=== PATIENT | female | born 1950 | race Caucasian/White ===

== ENCOUNTER 2019-03-19 18:06 | Emergency (ER) | payer MEDICARE, SELFPAY ==
[2019-03-19 18:08] VITALS: BP 149/85; PULSE 67; RESP 18; TEMP 36.5; O2SAT 98; BMI 23.3
--- NOTE | 2019-03-19 18:22 | CT_ITS ---
HISTORY:RIGHT FLANK PAIN AND LOWER BACK PAIN WITH CONSTIPATION, HX HYSTERECTOMY, HTN, COPD TECHNIQUE:CT Abdomen And Pelvis W/O Contrast Axial CT images were obtained of the abdomen and pelvis without oral or IV contrast. Multiplanar rectructions were also obtained. A radiation dose optimization technique was used for this scan. # of images including paperwork:[id number] COMPARISON: None FINDINGS: LUNG BASES: Mild cardiomegaly. Coronary artery calcifications. Dependent atelectasis. Minimal pleural thickening is seen along the right lateral lower lobe seen on axial image 10 series 2 LIVER T BILIARY TRACT: Unremarkable. GALLBLADDER:Mildly contracted. No cholelithiasis PANCREAS: unremarkable for nonenhanced study SPLEEN: Unremarkable. ADRENAL GLANDS: Unremarkable. KIDNEYS/URETERS:Moderate right-sided hydronephrosis and hydroureter. This extends to the ureterovesicular junction. The distal ureters poorly visualized and there is atherosclerotic plaque that is seen within the common iliac and internal iliac artery The left kidney is unremarkable. There is no hydronephrosis or hydroureter. No stones within the ureter. There is calcification seen within the left external iliac artery. BLADDER: There is a calcification within the bladder seen on axial image 148 series 2 that most likely represents a recently passed stone. This measures approximately 6.2 mm STOMACH, SMALL AND LARGE BOWEL: The stomach is distended The small bowel is unremarkable No diverticulitis or mechanical obstruction APPENDIX: No appendicitis. ASCITES: Unremarkable. FREE AIR: Unremarkable. PELVIS: Multiple vascular calcifications are noted. Patient has had prior hysterectomy Soft tissue density seen within the right pelvis posterior to the anterior adjacent to the rectum. This may represent a prominent right ovary. Correlate with surgical history and consider ultrasound for further evaluation. This may represent a conglomerate of unopacified small bowel AORTA: Unremarkable. LYMPH NODES: Unremarkable. OSSEOUS STRUCTURES: No acute osseous abnormality. Dextroscoliosis of the lumbar spine. CT/Abdomen/Pelvis without Cont IMPRESSION: Moderate right-sided hydronephrosis and hydroureter. The distal ureters poorly visualized on the study and vascular cath occasions are seen within the pelvis. There is a 6.2 mm The within the bladder that is most likely secondary to a recently passed stone No left-sided hydronephrosis Hysterectomy Soft tissue density is seen in the pelvis measuring approximately 4.5 cm. This may represent a prominent right ovary. Correlate with surgical history. This may represent a conglomerate of unopacified small bowel. Consider ultrasound for further evaluation of clinically indicated Mild cardiomegaly with coronary artery cath occasions Minimal pleural thickening is seen within the lateral aspect of the right lower lobe Contracted gallbladder Individualized dose optimization techniques were used for this CT. at 1924 Reported and signed by: Latoya Sher DO Electronically Signed: Latoya Sher DO at 19:23 EDT Tel , Service support ,
[2019-03-19] MEDS: Ketorolac 30 MG/ML Syringe 15 MG IV (18:34)
[2019-03-19] MEDS: Ondansetron 4 MG/2 ML Vial IV (18:34)
[2019-03-19] MEDS: Morphine 4 MG/ML Syringe IV (18:34)
[2019-03-19] MEDS: 0.9% Normal Saline 1,000 ML 125 ML IV (18:35)
[2019-03-19 18:46] LABS: Absolute Lymphocyte Count 1.79 X10^3/uL (0.83-4.51); Absolute Neutrophil Count 4.7 X10^3/uL (2.0-7.7); Basophil# 0.02 X10^3/uL; Basophil% 0.2 % (0-1); Eosinophil# 0.08 X10^3/uL; Hematocrit 38.2 % (37-47); Hemoglobin 12.7 g/dL (12.0-15.0); Lymphocyte # 1.79 X10^3/ul (4.0); Lymphocyte % 21.6 % (19-41); Mean Corp Hgb Conc 33.2 g/dL (32-36); Mean Corpuscular Volume 96.2 fL (81-99); Mean Platelet Vol. 10.7 fl (6.2-12.0); Monocyte# 1.48 X10^3/uL; Monocyte% 17.9 % (0-10); NRBC Flagged by Analyzer 0 % (0-5); Neutrophil # 4.73 X10^3/uL (2.7-7.7); Neutrophil % 57.1 % (47-70); Platelet Count 219 K/mm3 (150-450); RBC Distribution Width CV 12.9 % (11.6-14.6); Red Blood Count 3.97 M/mm3 (4.2-5.4); White Blood Count 8.3 K/mm3 (4.4-11.0)
[2019-03-19 18:52] LABS: Anion Gap 8 (5-15); BUN 12 mg/dL (7-18); BUN/Creat Ratio 18.3 RATIO (10-20); Calcium,Total 9.2 mg/dL (8.5-10.1); Chloride 104 mmol/L (98-107); Creatinine, Serum 0.66 mg/dL (0.55-1.02); EST Glomerular Filtration Rate 95 mL/min (>60); Est Glom Filt Rate - Afr Amer 115 mL/min (>60); Estimated Creatinine Clearance 48.45 ml/min; Glucose 140 mg/dL (74-106); Potassium 3.9 mmol/L (3.5-5.1); Sodium Level 136 mmol/L (136-145)
--- NOTE | 2019-03-19 19:33 | ED.VISSUMM ---
- ER Visit Summary Date of Service: 03/19/19 Chief Complaint: [Right flank pain] History of Present Illness: The patient is a 68 F [presents to the emergency department complaint of right-sided flank pain that started around noon today. Patient rates the pain as a 10 out of 10. She is had nausea with it but no vomiting. Patient had a normal bowel movement last evening. She denies any fevers. Patient has had some dysuria and some frequency. She denies hematuria. Patient is never had discomfort like this before. Patient has had prior hysterectomy. She has a history of COPD and high cholesterol. Denies any blood in her stool or black tarry stools.] Physical Examination: [HEENT-PERRLA, EOMI. Cranial nerves II through XII grossly intact. TMs clear. Mucous membranes moist. No adenopathy. Cardiovascular-regular rate and rhythm without murmur or ectopy Lungs-clear to auscultation, chest wall stable Abdomen-normoactive bowel sounds, soft. Patient has tenderness to palpation over right lower quadrant and right CVA tenderness. There is no rebound, rigidity, or perineal signs. Extremities-intact ?4, normal range of motion, normal pulses, atraumatic] Test Results: [CBC with differential obtained showing of 8.3, hemoglobin 12.7, hematocrit 38, placed 219. Chemistries unremarkable. CT flank showed right-sided hydroureter with a 6.2 mm stone in the bladder. Radiology suspected recently passed kidney stone as the etiology.] Urinalysis showed 5-10 RBCs and 5-10 WBCs. Emergency Department Course and Treatment: Patient was given morphine and Zofran as well as Toradol in the emergency department patient's pain resolved. [] Treatment Plan: [Will be given urine strainers and a prescriptions for a few [place] for severe pain should she need them. Patient will be given referral to urology for follow-up.] Disposition: [Discharged home in stable condition area and patient advised to return if worsening pain, fever, vomiting, or conditions worsen anyway.] Impression: [Urolithiasis-passed kidney stone] This note was generated with [employer] dictation software. It may contain incorrect words, spelling, and punctuation that were not noted in review of the chart prior to signing ED Disposition - Plan for ED Patient: Referrals: Gelacio Horta MD [Primary Care Provider] -
[2019-03-19 19:35] LABS: Bacteria 0 SEEN /hpf (None Seen)
[2019-03-19 19:41] LABS: Color, Urine Yellow (Yellow); Glucose, Dipstick Normal (Normal); Ketone-Dipstick Negative (Negative); Leukocyte Esterase-Dipstick 100 /ul (Negative); Nitrite-Dipstick Negative (Negative); Occult Blood-Urine 250 /ul (Negative); Protein-Dipstick Negative (Negative); Urine Bilirubin Dipstick Negative (Negative); Urine Clarity Sl. Cloudy (Clear); Urine Urobilinogen Normal (Normal)
[2019-03-19 20:04] LABS: Mucous, Urine 1+ /hpf (<or=2+)
[2019-03-19 20:05] LABS: Red Blood Cells-Urine 5-10 SEEN /hpf (0-5); White Blood Cells 5-10 SEEN /hpf (0-5)
[2019-03-19 20:06] LABS: Squamous Epithelial Cells - UA 0-5 SEEN /hpf (5-10)
[2019-03-19 20:10] LABS: Transitional Epithelial - Ur 0-5 SEEN /hpf (0-5)
--- NOTE | 2019-03-19 20:19 | ED.DEP ---
ED Disposition - Plan for ED Patient: Instructions: KIDNEY STONE, Passed Prescriptions: Hydrocodone Bitart/Apap 5-325 [Cardwell 5MG-325MG] 1 tab PO Q4H PRN PRN 2 Days #10 tab PRN Reason: Pain Prescription Printed Referrals: Gelacio Horta MD [Primary Care Provider] - Herrera Hutchinson MD [STAFF PHYSICIAN] - 3-5 Days
[2019-03-19 20:37] VITALS: BP 123/61; PULSE 58; RESP 18; O2SAT 94
== END 2019-03-19 20:38 | disposition home or self-care (01) ==
LOC: ED 18:44
PROVIDERS: Emergency Provider Emergency Medicine; Family Provider Family Medicine; PCP Family Medicine
DX: N13.2 Hydronephrosis with renal and ureteral calculous obstruction (principal); E78.00 Pure hypercholesterolemia, unspecified; J44.9 Chronic obstructive pulmonary disease, unspecified; Z72.0 Tobacco use; Z79.899 Other long term (current) drug therapy
CPT/HCPCS: 74176; 80048; 81001; 85025; 96361; 96374; 96375; 99285; J7030; A4216; J2405

== ENCOUNTER 2020-05-03 10:44 | Emergency (ER) | payer MEDICARE, SELFPAY ==
[2020-05-03 10:44] VITALS: BP 96/63; PULSE 115; RESP 19; TEMP 36.3; O2SAT 90; BMI 26.6
--- NOTE | 2020-05-03 11:13 | EKG12_ITS ---
Test Reason : SOB Blood Pressure : / mmHG Vent. Rate : 081 BPM Atrial Rate : 081 BPM P-R Int : 142 ms QRS Dur : 074 ms QT Int : 362 ms P-R-T Axes : 024 029 052 degrees QTc Int : 420 ms Normal sinus rhythm Normal ECG Confirmed by MAITE BATES, JAKE ([id number]), greeting card editor PAULETTE AVELAR ([id number]) on 05/06/2020 9:47:00 AM Referred By: DIANA Confirmed By:JAKE ARORA MD
--- NOTE | 2020-05-03 11:14 | CT_ITS ---
STUDY: CTA CHEST REASON FOR EXAM: Female, 69 years old. WEAKNESS, COUGH, SOB, DIZZINESS, IS COVID+ RADIATION DOSAGE (If Supplied By Facility): CTDIvol = ( 7.84 ) mGy, DLP = ( 267.44 ) mGycm TECHNIQUE: The examination was performed with the intravenous administration of IV 100mL Isovue-370. Post-processing of the angiographic images was performed, with multiplanar reformation and 3D reconstruction. Individualized dose optimization techniques were used for this CT. COMPARISON: None. FINDINGS: Normal enhancement of the main pulmonary artery and right and left pulmonary arteries. Normal enhancement of the bilateral peripheral pulmonary arteries. There is no demonstrated pulmonary embolism. Normal thoracic aorta and visualized great vessels. There is no demonstrated aortic dissection. Normal heart and pericardium. Normal mediastinum. Normal hilar regions. Normal visualized trachea and bronchi. Hyperinflation. Emphysematous changes. Mild alveolar disease is seen in the peripheral aspect of the left upper lobe as well as in the posterior aspect of the right upper lobe abutting the minor fissure. Focal area of groundglass appearance is also seen along the anterior aspect of the lingular segment of the left upper lobe. Mild atelectasis and/or scarring at the lung bases. Minimal pleural thickening. Normal chest wall structures. There are degenerative changes of thoracic spine. There is evidence of a 1.6 cm cyst in the upper pole of the right kidney. Hepatomegaly. CT/CTA Chest W/WO Contrast IMPRESSION: No evidence of pulmonary embolism. Focal areas of groundglass appearance in the peripheral aspect of the left upper lobe as well as in the posterior aspect of the right upper lobe. Mild degree of groundglass appearance is also along the anterior aspect of the lingular segment of the left upper lobe. Follow-up is recommended. Electronically Signed: Mitch Merida, at 13:03 EST , Service support ,
[2020-05-03 11:39] LABS: Absolute Lymphocyte Count 1.04 X10^3/uL (0.83-4.51); Absolute Neutrophil Count 1.4 X10^3/uL (2.0-7.7); Basophil# 0.01 X10^3/uL; Basophil% 0.2 % (0-1); Eosinophil# 0.03 X10^3/uL; Eosinophils% 0.7 % (0-5); Hemoglobin 12.4 g/dL (12.0-15.0); Lymphocyte # 1.04 X10^3/ul (4.0); Lymphocyte % 25.1 % (19-41); Mean Corp Hgb Conc 33.5 g/dL (32-36); Mean Corpuscular Hgb 31.5 pg (27.0-32.0); Mean Corpuscular Volume 93.9 fL (81-99); Mean Platelet Vol. 12.1 fl (6.2-12.0); Monocyte# 1.59 X10^3/uL; Monocyte% 38.3 % (0-10); NRBC Flagged by Analyzer 0 % (0-5); Neutrophil # 1.38 X10^3/uL (2.7-7.7); Neutrophil % 33.3 % (47-70); POSITIVE COUNT YES; POSITIVE DIFFERENTIAL YES; Platelet Count 92 K/mm3 (150-450); RBC Distribution Width CV 13.9 % (11.6-14.6); RBC Distribution Width SD 48.2 fl (35.1-43.9); Red Blood Count 3.94 M/mm3 (4.2-5.4); White Blood Count 4.2 K/mm3 (4.4-11.0)
[2020-05-03] MEDS: 0.9% Normal Saline 1,000 ML 999 ML IV (11:45)
[2020-05-03] MEDS: dexAMETHasone 10 MG/ML Vial IV (11:45)
[2020-05-03 11:46] VITALS: BP 92/60; PULSE 82; RESP 22; O2SAT 93; O2SAT 94
[2020-05-03 11:54] LABS: ALB/GLOB Ratio 1.2 RATIO (0.9-2.4); AST(SGOT) 10 U/L (15-37); Alanine Aminotransfer ALT/SGPT 24 U/L (13-56); Albumin, Serum 3.7 g/dL (3.2-5.0); Alkaline Phosphatase 77 U/L (45-117); Anion Gap 5 (5-15); BUN 14 mg/dL (7-18); BUN/Creat Ratio 19.4 RATIO (10-20); Chloride 112 mmol/L (98-107); Creatinine, Serum 0.72 mg/dL (0.55-1.02); EST Glomerular Filtration Rate 85 mL/min (>60); Est Glom Filt Rate - Afr Amer 103 mL/min (>60); Estimated Creatinine Clearance 47.78 ml/min; Globulin 3.1 g/dL (2.2-4.2); Glucose 98 mg/dL (74-106); Potassium 4.1 mmol/L (3.5-5.1); Protein, Total 6.8 g/dL (6.4-8.2); Sodium Level 140 mmol/L (136-145)
[2020-05-03 11:56] VITALS: BP 92/60; PULSE 82; RESP 22; TEMP 36.3; O2SAT 94
[2020-05-03] MEDS: Ipratropium/Albuterol Sulfate 3 ML AMPUL.NEB INHALATION (12:00)
[2020-05-03] MEDS: Albuterol 2.5 MG/3 ML VIAL.NEB. INHALATION (12:00)
[2020-05-03 12:02] LABS: Differential Indicated SCAN CRITERIA MET
[2020-05-03 12:11] VITALS: BP 93/64; PULSE 85; RESP 16; TEMP 36.6; O2SAT 93
[2020-05-03 12:31] LABS: Lactic Acid 0.9 mmol/L (0.4-1.9)
[2020-05-03 13:09] LABS: Differential Comment SCANNED
[2020-05-03 13:18] VITALS: BP 107/71; PULSE 77; RESP 22; TEMP 36.7; O2SAT 93
[2020-05-03 13:22] LABS: Probe Check PASS; Specimen Processing Control PASS
--- NOTE | 2020-05-03 14:00 | ED.RN ---
ambulated with pulse ox. sats dropped to 90 with few laps in room. after sitting was able to recover to 94% ra. does have increased breathing with exacerbation also
--- NOTE | 2020-05-03 14:09 | ED.VIS.GEN ---
History of Present Illness Chief Complaint: Weakness Informant: Patient Narrative: 69-year-old female with a history of COPD presents the emergency department with 1 week of slight cough shortness of breath. She states her chest feels tight. Her currently is Covid positive. She does not wear oxygen. She has a nebulizer at home. Past Medical History - Allergies and Home Meds Allergies/Adverse Reactions: Allergies No Known Allergies Allergy (Verified 05/03/20 10:44) Primary Care Physician: Gelacio Horta MD [Primary Care Provider] - Prior records reviewed: Yes Past Medical History: - Surgical History: noncontributory - COPD Lives: Spouse/ Significant Other Smoking Status: Current every day smoker Drugs: None Review of Systems General: Reports: Malaise. Denies: Chills, Fever, Sweats Eyes: Denies: Visual changes - bilaterally, Diplopia ENT: Denies: Rhinorrhea, Sore throat Cardiovascular: Denies: Chest pain, Palpitations Respiratory: Reports: Dyspnea, Cough, Dyspnea on exertion Gastrointestinal: Denies: Abdominal pain, Nausea, Vomiting, Diarrhea, Melena, Hematochezia Genitourinary: Denies: Dysuria, Hematuria, Frequency Musculoskeletal: Denies: Back pain, Extremity Pain Skin: Denies: Rash, Wounds Neurological: Denies: Headache, Weakness, Numbness Physical Exam Vital Signs/Narrative: Vital Signs Temp Pulse Resp BP Pulse Ox 05/03/20 13:18 98.0 F 77 22 H 107/71 93 05/03/20 12:11 97.9 F 85 16 93/64 93 05/03/20 11:56 97.3 F L 82 22 H 92/60 94 05/03/20 11:46 82 22 H 92/60 93 05/03/20 10:44 97.3 F L 115 H 19 H 96/63 90 Inital Vital Signs reviewed: Yes General: Well nourished, Well developed, No Acute Distress Head: Normocephalic, Atraumatic Eyes: Perrl, EOMI ENT: Moist mucous membranes, No rhinorrhea Neck: Supple, Nontender Cardiovascular: Regular rate, Regular rhythm, No murmurs Respiratory: No distress, Chest nontender, Wheezing Abdomen: Soft, Nontender, Nondistended, Normal bowel sounds Back: Nontender, Normal Inspection Extremities: Nontender, No edema Skin: Normal color, No rash Neurological: Alert, Oriented x3, Cranial nerves II-XII grossly intact, Normal Strength, Normal Sensation Psychological: Normal affect, Normal Mood Diagnostic/Tx/Re-eval Clinical Impression(s) from Imaging Studies Chest CTA 05/03/20 11:14 IMPRESSION: No evidence of pulmonary embolism. Focal areas of groundglass appearance in the peripheral aspect of the left upper lobe as well as in the posterior aspect of the right upper lobe. Mild degree of groundglass appearance is also along the anterior aspect of the lingular segment of the left upper lobe. Follow-up is recommended. Electronically Signed: Mitch Merida, at 13:03 EST , Service support , Laboratory Last Values WBC 4.2 K/mm3 (4.4-11.0) L 05/03/20 11:15 RBC 3.94 M/mm3 (4.2-5.4) L 05/03/20 11:15 Hgb 12.4 g/dL (12.0-15.0) 05/03/20 11:15 Hct 37.0 % (37-47) 05/03/20 11:15 MCV 93.9 fL (81-99) 05/03/20 11:15 MCH 31.5 pg (27.0-32.0) 05/03/20 11:15 MCHC 33.5 g/dL (32-36) 05/03/20 11:15 RDW Std Deviation 48.2 fl (35.1-43.9) H 05/03/20 11:15 RDW Coeff of Corrina 13.9 % (11.6-14.6) 05/03/20 11:15 Plt Count 92 K/mm3 (150-450) L 05/03/20 11:15 MPV 12.1 fl (6.2-12.0) H 05/03/20 11:15 Immature Gran % (Auto) 2.400 % (0.0-0.9) H 05/03/20 11:15 Neut % (Auto) 33.3 % (47-70) L 05/03/20 11:15 Lymph % (Auto) 25.1 % (19-41) 05/03/20 11:15 [place] % (Auto) 38.3 % (0-10) H 05/03/20 11:15 Eos % (Auto) 0.7 % (0-5) 05/03/20 11:15 Baso % (Auto) 0.2 % (0-1) 05/03/20 11:15 Absolute Neuts (auto) 1.4 X10^3/uL (2.0-7.7) L 05/03/20 11:15 Absolute Lymphs (auto) 1.04 X10^3/uL (0.83-4.51) 05/03/20 11:15 Nucleated RBC % 0 % (0-5) 05/03/20 11:15 Differential Comment SCANNED 05/03/20 11:15 Sodium 140 mmol/L (136-145) 05/03/20 11:15 Potassium 4.1 mmol/L (3.5-5.1) 05/03/20 11:15 Chloride 112 mmol/L (98-107) H 05/03/20 11:15 Carbon Dioxide 23.0 mmol/L (21.0-32.0) 05/03/20 11:15 Anion Gap 5 (5-15) 05/03/20 11:15 BUN 14 mg/dL (7-18) 05/03/20 11:15 Creatinine 0.72 mg/dL (0.55-1.02) 05/03/20 11:15 Estim Creat Clear Calc 47.78 ml/min 05/03/20 11:15 Est GFR (MDRD) Af Amer 103 mL/min (>60) 05/03/20 11:15 Est GFR (MDRD) Non-Af 85 mL/min (>60) 05/03/20 11:15 BUN/Creatinine Ratio 19.4 RATIO (10-20) 05/03/20 11:15 Glucose 98 mg/dL (74-106) 05/03/20 11:15 Lactic Acid 0.9 mmol/L (0.4-1.9) 05/03/20 11:40 Calcium 9.0 mg/dL (8.5-10.1) 05/03/20 11:15 Total Bilirubin 0.30 mg/dL (0.20-1.00) 05/03/20 11:15 AST 10 U/L (15-37) L 05/03/20 11:15 ALT 24 U/L (13-56) 05/03/20 11:15 Alkaline Phosphatase 77 U/L (45-117) 05/03/20 11:15 Troponin I < 0.015 ng/mL (<0.045) 05/03/20 11:15 Total Protein 6.8 g/dL (6.4-8.2) 05/03/20 11:15 Albumin 3.7 g/dL (3.2-5.0) 05/03/20 11:15 Globulin 3.1 g/dL (2.2-4.2) 05/03/20 11:15 Albumin/Globulin Ratio 1.2 RATIO (0.9-2.4) 05/03/20 11:15 COVID-19 (JACOB) Positive (Not Detect) 05/03/20 12:10 - Medical Decision Making She received breathing treatments, Solu-Medrol. Repeat examination the patient states she feels better than when she came in. She is Covid positive. We ambulated her and she is 90 to 92%. She states she feels okay. She really would like to go home if at all possible. I will place her on prednisone and azithromycin. I recommend that she monitor herself very closely. If she is worsening she needs to return to the hospital. She understands that she is at high risk for needing admission. ED Disposition - Plan for ED Patient: Disposition: Home or Assisted Living Diagnosis: COVID-19, COPD (chronic obstructive pulmonary disease) Instructions: Coronavirus Disease 2019 (COVID-19) Prescriptions: Prednisone [Deltasone] 60 mg PO DAILY #15 tab Prescription Printed Azithromycin [Zithromax Z-Toni] 250 mg PO UD #1 box Prescription Printed Referrals: Gelacio Horta MD [Primary Care Provider] - As Needed
[2020-05-03 14:53] VITALS: BP 91/74; PULSE 93; RESP 22; TEMP 36.6; O2SAT 91
== END 2020-05-03 14:56 | disposition home or self-care (01) ==
PROVIDERS: Emergency Provider Emergency Medicine; PCP Family Medicine
DX: U07.1 COVID-19 (principal); J44.9 Chronic obstructive pulmonary disease, unspecified; F17.200 Nicotine dependence, unspecified, uncomplicated
CPT/HCPCS: 71275; 80053; 83605; 84484; 85025; 87635; 93005; 94640; 96374; 99284; J7030; Q9967; A4216; U0002

== ENCOUNTER 2020-05-06 09:04 | Emergency (ER) | payer MEDICARE, SELFPAY ==
[2020-05-06] VITALS (8 sets, daily range): BP systolic 97–117; BP diastolic 50–78; PULSE 71–89; RESP 16–77; TEMP 36.2–36.9; O2SAT 93–96; BMI 27.4
--- NOTE | 2020-05-06 09:08 | ED.RN ---
after ambulation on RA. sats were 92-93%. pt mildly tachepnic. recovered to sats of 96% and rr 20 within few minutes
--- NOTE | 2020-05-06 09:32 | ED.DCSUM_ITS ---
History of Present Illness Chief Complaint: Weakness Informant: Patient Narrative: 69-year-old female with a history of COPD presents to the emergency department with shortness of breath and generally feeling poorly. She was diagnosed 3 days ago with COVID-19. Reportedly contracted it from her . Patient was attempting outpatient treatment of Covid. She has been taking first dose of prednisone as well as azithromycin. Patient is also on Eliquis. She states that over the weekend she has not been eating or drinking as much as normal. She notes a dry mouth. She notes diarrhea. She notes a cough but no production. She denies any rashes. Past Medical History - Allergies and Home Meds Allergies/Adverse Reactions: Allergies No Known Allergies Allergy (Verified 05/06/20 09:10) Primary Care Physician: Gelacio Horta MD [Primary Care Provider] - Prior records reviewed: Yes Past Medical History: - - COPD COVID-19 Surgical History: noncontributory - COPD Lives: Spouse/ Significant Other Smoking Status: Current every day smoker Drugs: None Review of Systems General: Reports: Chills, Malaise. Denies: Fever, Sweats Eyes: Denies: Visual changes - bilaterally, Diplopia ENT: Denies: Rhinorrhea, Sore throat Cardiovascular: Denies: Chest pain, Palpitations Respiratory: Reports: Dyspnea, Cough, Dyspnea on exertion Gastrointestinal: Reports: Nausea, Diarrhea. Denies: Abdominal pain, Vomiting, Melena, Hematochezia Genitourinary: Denies: Dysuria, Hematuria, Frequency Musculoskeletal: Reports: Myalgias. Denies: Back pain, Extremity Pain Skin: Denies: Rash, Wounds Neurological: Reports: Headache. Denies: Weakness, Numbness Physical Exam Vital Signs/Narrative: Vital Signs Temp Pulse Resp BP Pulse Ox 05/06/20 09:14 97.2 F L 78 77 H 105/62 93 05/06/20 09:06 97.2 F L 84 22 H 112/63 96 Inital Vital Signs reviewed: Yes General: Well nourished, Well developed, No Acute Distress Head: Normocephalic, Atraumatic Eyes: Perrl, EOMI ENT: Moist mucous membranes, No rhinorrhea Neck: Supple, Nontender Cardiovascular: Regular rate, Regular rhythm, No murmurs Respiratory: No distress, Chest nontender, Wheezing - Inspiratory and expiratory wheezing Abdomen: Soft, Nontender, Nondistended, Normal bowel sounds Back: Nontender, Normal Inspection Extremities: Nontender, No edema Skin: Normal color, No rash Neurological: Alert, Oriented x3, Cranial nerves II-XII grossly intact, Normal Strength, Normal Sensation Psychological: - - Appears anxious Diagnostic/Tx/Re-eval Clinical Impression(s) from Imaging Studies Chest X-Ray 05/06/20 09:40 IMPRESSION: New patchy pneumonic infiltrates are noted in both upper lobes more pronounced on the right Electronically Signed: Arthur Colmenares, at 10:01 EST Tel , Service support , Laboratory Last Values WBC 7.1 K/mm3 (4.4-11.0) 05/06/20 09:15 RBC 4.20 M/mm3 (4.2-5.4) 05/06/20 09:15 Hgb 13.0 g/dL (12.0-15.0) 05/06/20 09:15 Hct 39.6 % (37-47) 05/06/20 09:15 MCV 94.3 fL (81-99) 05/06/20 09:15 MCH 31.0 pg (27.0-32.0) 05/06/20 09:15 MCHC 32.8 g/dL (32-36) 05/06/20 09:15 RDW Std Deviation 48.6 fl (35.1-43.9) H 05/06/20 09:15 RDW Coeff of Corrina 13.8 % (11.6-14.6) 05/06/20 09:15 Plt Count 126 K/mm3 (150-450) L 05/06/20 09:15 MPV 12.2 fl (6.2-12.0) H 05/06/20 09:15 Neut % (Auto) Not Reportable 05/06/20 09:15 Absolute Neuts (auto) 3.5 X10^3/uL (2.0-7.7) 05/06/20 09:15 Absolute Lymphs (auto) 1.48 X10^3/uL (0.83-4.51) 05/06/20 09:15 Neutrophils % (Manual) 45 % (47-70) L 05/06/20 09:15 Band Neutrophils % 4 % (0-5) 05/06/20 09:15 Lymphocytes % (Manual) 21 % (19-41) 05/06/20 09:15 Monocytes % (Manual) 22 % (0-10) H 05/06/20 09:15 Metamyelocytes % 4 % (0-1) H 05/06/20 09:15 Myelocytes % 4 (0-0) H 05/06/20 09:15 Blast Cells % 1 % (0-0) H* 05/06/20 09:15 Diff Path Review October05/06/20 09:15 Atypical Lymphocytes 1+ % 05/06/20 09:15 Platelet Estimate SLT DEC (ADEQ) 05/06/20 09:15 RBC Morphology NORM C+C NORMAL (NORM C&C) 05/06/20 09:15 Sodium 140 mmol/L (136-145) 05/06/20 09:15 Potassium 3.9 mmol/L (3.5-5.1) 05/06/20 09:15 Chloride 109 mmol/L (98-107) H 05/06/20 09:15 Carbon Dioxide 23.0 mmol/L (21.0-32.0) 05/06/20 09:15 Anion Gap 8 (5-15) 05/06/20 09:15 BUN 16 mg/dL (7-18) 05/06/20 09:15 Creatinine 0.84 mg/dL (0.55-1.02) 05/06/20 09:15 Estim Creat Clear Calc 56.88 ml/min 05/06/20 09:15 Est GFR (MDRD) Af Amer 87 mL/min (>60) 05/06/20 09:15 Est GFR (MDRD) Non-Af 72 mL/min (>60) 05/06/20 09:15 BUN/Creatinine Ratio 19.1 RATIO (10-20) 05/06/20 09:15 Glucose 107 mg/dL (74-106) H 05/06/20 09:15 Lactic Acid 2.0 mmol/L (0.4-1.9) 05/06/20 09:15 Calcium 9.0 mg/dL (8.5-10.1) 05/06/20 09:15 Total Bilirubin 0.30 mg/dL (0.20-1.00) 05/06/20 09:15 AST 20 U/L (15-37) 05/06/20 09:15 ALT 24 U/L (13-56) 05/06/20 09:15 Alkaline Phosphatase 74 U/L (45-117) 05/06/20 09:15 Troponin I < 0.015 ng/mL (<0.045) 05/06/20 09:15 Total Protein 7.3 g/dL (6.4-8.2) 05/06/20 09:15 Albumin 3.7 g/dL (3.2-5.0) 05/06/20 09:15 Globulin 3.6 g/dL (2.2-4.2) 05/06/20 09:15 Albumin/Globulin Ratio 1.0 RATIO (0.9-2.4) 05/06/20 09:15 Urine Color Yellow (Yellow) 05/06/20 12:05 Urine Clarity Clear (Clear) 05/06/20 12:05 Urine pH 7.0 (5.0 - 8.0) 05/06/20 12:05 Ur Specific [place] 1.005 (1.002-1.030) 05/06/20 12:05 Urine Protein Negative mg/dl (Negative) 05/06/20 12:05 Urine Glucose (UA) Normal mg/dl (Normal) 05/06/20 12:05 Urine Ketones Negative mg/dl (Negative) 05/06/20 12:05 Urine Occult Blood Negative /ul (Negative) 05/06/20 12:05 Urine Nitrite Negative (Negative) 05/06/20 12:05 Urine Bilirubin Negative mg/dL (Negative) 05/06/20 12:05 Urine Urobilinogen Normal mg/dl (Normal) 05/06/20 12:05 Ur Leukocyte Esterase Negative /ul (Negative) 05/06/20 12:05 - Medical Decision Making Patient received breathing treatment and IV Decadron. I reviewed her labs and her chest x-ray with her. Hold room air while we talk she is 89-90. She feels symptomatically better with a couple liters of nasal cannula oxygen. With the 2 L she is about 95%. Patient again would prefer to go home. She has nebulizers at home. She states her biggest concern is her fatigue and her hydration. I am going to work with social work to see if we can get her home oxygen. We were able to get oxygen for her. She is already on azithromycin Eliquis and prednisone. She has nebulizers. Return if worsening or concerns ED Disposition - Plan for ED Patient: Disposition: Home or Assisted Living Diagnosis: COVID-19, COPD exacerbation, Thrombocytopenia associated with COVID-19 Instructions: Coronavirus Disease 2019 (COVID-19) Referrals: Gelacio Horta MD [Primary Care Provider] - As Needed Additional Instructions: Wear the oxygen at home. Return if worsening or concerns. Is very important that you drink plenty of fluids.
--- NOTE | 2020-05-06 09:40 | RAD_ITS ---
EXAM DESCRIPTION: PORTABLE AP CHEST CLINICAL HISTORY: 69 years Female, cough, sob, weakness, positive covid cough, sob, weakness, positive covid COMPARISON: Previous chest obtained on 10/19/2016 FINDINGS: The thorax is intact. The heart and mediastinum appear to be within normal limits. The lungs show a new patchy alveolar infiltrate in the right upper lobe which previously was not seen. A faint additional possible infiltrate is noted in the left upper lobe. RAD/Chest 1 View (Portable) IMPRESSION: New patchy pneumonic infiltrates are noted in both upper lobes more pronounced on the right Electronically Signed: Arthur Colmenares, at 10:01 EST Tel , Service support ,
[2020-05-06 09:44] LABS: Hematocrit 39.6 % (37-47); Mean Corp Hgb Conc 32.8 g/dL (32-36); Mean Corpuscular Volume 94.3 fL (81-99); Mean Platelet Vol. 12.2 fl (6.2-12.0); POSITIVE COUNT YES; POSITIVE DIFFERENTIAL YES; POSITIVE MORPHOLOGY YES; Platelet Count 126 K/mm3 (150-450); RBC Distribution Width CV 13.8 % (11.6-14.6); RBC Distribution Width SD 48.6 fl (35.1-43.9); White Blood Count 7.1 K/mm3 (4.4-11.0)
[2020-05-06 09:48] LABS: AST(SGOT) 20 U/L (15-37); Alanine Aminotransfer ALT/SGPT 24 U/L (13-56); Albumin, Serum 3.7 g/dL (3.2-5.0); Alkaline Phosphatase 74 U/L (45-117); Anion Gap 8 (5-15); BUN 16 mg/dL (7-18); BUN/Creat Ratio 19.1 RATIO (10-20); Chloride 109 mmol/L (98-107); Creatinine, Serum 0.84 mg/dL (0.55-1.02); EST Glomerular Filtration Rate 72 mL/min (>60); Est Glom Filt Rate - Afr Amer 87 mL/min (>60); Estimated Creatinine Clearance 56.88 ml/min; Globulin 3.6 g/dL (2.2-4.2); Glucose 107 mg/dL (74-106); Potassium 3.9 mmol/L (3.5-5.1); Protein, Total 7.3 g/dL (6.4-8.2); Sodium Level 140 mmol/L (136-145)
[2020-05-06 10:00] LABS: Differential Indicated MANUAL DIFF
[2020-05-06] MEDS: 0.9% Normal Saline 1,000 ML 999 ML IV (10:04)
[2020-05-06] MEDS: dexAMETHasone 10 MG/ML Vial IV (10:04)
[2020-05-06] MEDS: Ipratropium/Albuterol Sulfate 3 ML AMPUL.NEB INHALATION (10:05)
[2020-05-06 10:19] LABS: Metamyelocyte 4 % (0-1); Neutrophil-Band 4 % (0-5); Neutrophil-Segmented 45 % (47-70)
[2020-05-06 10:20] LABS: Atypical Lymphocyte 1+ %; Blast 1 % (0-0); Lymphocyte 21 % (19-41); Monocyte 22 % (0-10); Myelocyte 4 (0-0); Platelet Estimate SLT DEC (ADEQ); Red Cell Morphology NORM C+C NORMAL (NORM C&C)
[2020-05-06 10:21] LABS: Absolute Neutrophil Count 3.5 X10^3/uL (2.0-7.7)
[2020-05-06 10:22] LABS: Absolute Lymphocyte Count 1.48 X10^3/uL (0.83-4.51)
[2020-05-06 12:14] LABS: Bacteria 0 SEEN /hpf (None Seen); Mucous, Urine 0 SEEN /hpf (<or=2+); Red Blood Cells-Urine 0 SEEN /hpf (0-5); White Blood Cells 0 SEEN /hpf (0-5)
[2020-05-06 12:16] LABS: Color, Urine Yellow (Yellow); Glucose, Dipstick Normal (Normal); Ketone-Dipstick Negative (Negative); Leukocyte Esterase-Dipstick Negative /ul (Negative); Nitrite-Dipstick Negative (Negative); Occult Blood-Urine Negative /ul (Negative); Protein-Dipstick Negative (Negative); Specific Gravity, Urine 1.005 (1.002-1.030); Urine Bilirubin Dipstick Negative (Negative); Urine Clarity Clear (Clear); Urine Urobilinogen Normal (Normal)
[2020-05-06 12:21] LABS: Squamous Epithelial Cells - UA 0-5 SEEN /hpf (5-10)
--- NOTE | 2020-05-06 12:33 | CM.ED ---
Social Work Consult: Home O2 set-up Informant: Dr. Mcnamara Telephone call to patient room due to precautions. Introduced self and social service technician role. Patient agreeable to speak with this social service technician. Patient aware of recommendation for patient to discharge to home with oxygen. Patient agreeable to home oxygen being set-up. Patient educated on DME company options. Patient choosing [employer] as medical equipment company. This social service technician educating patient that [employer] is not in-network with patient insurance and patient would be responsible for 20% of bill, patient reports understanding to this and reports on concerns with paying the bill. Patient reports to live at home with spouse and to already have a pulse ox set up in the home to monitor O2 levels. Patient with no further questions. Telephone call to Raya Browning. This social service technician updated on patient being set up with home O2. Order for Home O2 faxed to [facility] [place]. Nursing staff to educate patient on O2 tank and patient to call [employer] when patient arrives at home. Patient and nursing staff educated/aware of above and agreeable to plan. PLAN: Patient to discharge to home with spouse. Mechelle DOS SANTOS, MICHAEL
[2020-05-06 13:26] LABS: Reflex Lactate? Y
--- NOTE | 2020-05-07 13:26 | CASEMGMT ---
PETRONA MONTALVO DC PHONE CALL Attempted f/u call for this ER visit and set up for home oxygen. No answer. Message left on with call back information. Osvaldo ALVA RN AC
[2020-05-07 14:52] LABS: Pathologist Review Reviewed
--- NOTE | 2020-05-08 13:44 | CASEMGMT ---
[facility] ED COVID CALL ED VISIT DATE: 05/06/2020 ED Diagnosis: COVID 19 ED Disposition: Home on discharge with oxygen Intro role of CM to patient via phone. Explained purpose of CM call. Patient states she is very tired and weak. Her , who has covid virus also, but is doing better than I am is helping her with care needs. Patient is wearing oxygen at home and states her pulse oximetry is staying above 90%. She did sound short of breath with conversation. [facility] reviewed symptoms and to notify physician if she is having difficulty with fluids or diet, or if pulse ox is staying below 90%. Patient's is contacting PCP to notify of pt's visit to the ER. -Daughters brought chicken soup and meals to their porch. -Pt has medications and no questions. Osvaldo ALVA RN ACM
== END 2020-05-06 13:13 | disposition home or self-care (01) ==
PROVIDERS: Emergency Provider Emergency Medicine; PCP Family Medicine
DX: U07.1 COVID-19 (principal); J44.1 Chronic obstructive pulmonary disease with (acute) exacerbation; J44.0 Chronic obstructive pulmonary disease with (acute) lower respiratory infection; D69.59 Other secondary thrombocytopenia; F17.200 Nicotine dependence, unspecified, uncomplicated; Z79.01 Long term (current) use of anticoagulants
CPT/HCPCS: 71045; 80053; 81001; 83605; 84484; 85025; 96361; 96374; 99284

== ENCOUNTER 2020-05-09 17:59 | Inpatient (IN) | payer MEDICARE, SELFPAY ==
[2020-05-06 09:06] VITALS: BMI 27.4
[2020-05-09 17:59] VITALS: BP 118/64; PULSE 98; RESP 30; TEMP 36.2; O2SAT 91; BMI 29.2
[2020-05-09 18:08] VITALS: RESP 20; O2SAT 95
--- NOTE | 2020-05-09 18:27 | ED.VIS.DYS ---
History of Present Illness Chief Complaint: Shortness of Breath Informant: Patient Onset: Weeks - 1-2 Activity at onset: Light Activity - initially, Rest - now Timing: Continuous Quality: Wheezing Current Severity: Moderate Maximum Severity: Moderate Worsened by: Coughing, Exertion Relieved by: Albuterol - but helping very little Associated Symptoms: Cough Chest Pain: Continuous, Dull - left sided w/o radiation Narrative: Patient has had upper respiratory symptoms for almost 2 weeks now. She was seen here 3 days ago, she was diagnosed with Covid 3 days before that, was having increased dyspnea, sent home on home oxygen after being borderline. She watches her pulse ox at home, she goes down to 88% briefly with exertion but comes back up quickly, she has been using the oxygen. She is on Eliquis. She is on steroids. She is using nebulizer treatments at home but not very much, she states her anxiety is a lot worse, and she continues to feel worse with regards to her breathing and anxiety. She lives at home with his significant other who recovered from Covid if she thinks she got it from. - Past Medical History (1) COPD (chronic obstructive pulmonary disease) Status: Chronic Past Medical History - Allergies and Home Meds Allergies/Adverse Reactions: Allergies No Known Allergies Allergy (Verified 05/09/20 17:59) Primary Care Physician: Gelacio Horta MD [Primary Care Provider] - Lives: Spouse/ Significant Other Smoking Status: Current some day smoker Review of Systems General: Reports: Chills, Malaise. Denies: Sweats Eyes: Denies: Visual changes - bilaterally, Diplopia ENT: Reports: Rhinorrhea. Denies: Bilateral ear pain, Sore throat Cardiovascular: Reports: Chest pain. Denies: Palpitations, Heart racing Respiratory: Reports: Dyspnea, Cough, Dyspnea on exertion. Denies: Sputum, Orthopnea Gastrointestinal: Reports: Diarrhea. Denies: Abdominal pain, Nausea, Vomiting, Melena, Hematochezia Genitourinary: Denies: Dysuria, Hematuria, Frequency Musculoskeletal: Reports: Myalgias. Denies: Extremity Pain Skin: Denies: Rash, Wounds Neurological: Denies: Headache, Weakness, Numbness Psych: Reports: Anxiety. Denies: Suicidal thoughts Physical Exam Vital Signs/Narrative: Vital Signs Temp Pulse Resp BP Pulse Ox 05/09/20 18:08 20 H 95 05/09/20 17:59 97.2 F L 98 30 H 118/64 91 Inital Vital Signs reviewed: Yes General: Well nourished, Well developed, No Acute Distress Head: Normocephalic, Atraumatic Eyes: Perrl, EOMI ENT: Moist mucous membranes, No rhinorrhea Neck: Supple, Nontender Cardiovascular: Regular rate, Regular rhythm, No murmurs Respiratory: No distress, Chest nontender, Rhonchi, Wheezing Abdomen: Soft, Nontender, Nondistended, Normal bowel sounds Back: Nontender, Normal Inspection. Negative for: CVA tenderness Extremities: Nontender, No edema. Negative for: Calf Tenderness Skin: Normal color, No rash, No Trauma Neurological: Alert, Oriented x3, Cranial nerves II-XII grossly intact, Normal Strength, Normal Sensation Psychological: - - Anxious and somewhat tremulous Diagnostic/Tx/Re-eval Chest X-Ray - ED: 1 View, Read by ED Physician, Right Infiltrate, Left Infiltrate, - - Slightly worse than x-ray 3 days ago Laboratory Tests 05/09/20 05/09/20 05/09/20 Range/Units 19:11 18:45 18:45 WBC 8.6 (4.4-11.0) K/mm3 RBC 3.90 L (4.2-5.4) M/mm3 Hgb 12.2 (12.0-15.0) g/dL Hct 36.3 L (37-47) % MCV 93.1 (81-99) fL MCH 31.3 (27.0-32.0) pg MCHC 33.6 (32-36) g/dL RDW Std Deviation 46.4 H (35.1-43.9) fl RDW Coeff of Corrina 13.6 (11.6-14.6) % Plt Count 115 L (150-450) K/mm3 MPV 12.0 (6.2-12.0) fl Neut % (Auto) Not Reportable Specimen Type ART Sample Site L Radial pH 7.45 (7.35-7.45) Bicarbonate Actual 21.8 L (22-26) mmol/L Total CO2 23 mmol/L Base Excess -2 (-2 to +2) mmol/L O2 Saturation 98 (95-99) % ABG pCO2 31.5 L (35-45) mmHg ABG pO2 93 (75-100) mmHG Jesus Manuel Test Positive O2 Delivery Device Cannula Liter Flow 2.0 /min Sodium 139 (136-145) mmol/L Potassium 4.0 (3.5-5.1) mmol/L Chloride 110 H (98-107) mmol/L Carbon Dioxide 23.0 (21.0-32.0) mmol/L Anion Gap 6 (5-15) BUN 21 H (7-18) mg/dL Creatinine 0.70 (0.55-1.02) mg/dL Estim Creat Clear Calc 43.92 ml/min Est GFR (MDRD) Af Amer 107 (>60) mL/min Est GFR (MDRD) Non-Af 88 (>60) mL/min BUN/Creatinine Ratio 30.1 H (10-20) RATIO Glucose 127 H (74-106) mg/dL Calcium 8.6 (8.5-10.1) mg/dL Troponin I < 0.015 (<0.045) ng/mL Clinical Impression(s) from Imaging Studies Chest X-Ray 05/09/20 19:21 IMPRESSION: Left basilar infiltrate mild infiltrate/atelectasis. Electronically Signed: Go Faustin DO at 19:52 EST Tel [phone], Service support , - Rhythm Strip Rhythm Strip: Sinus Rhythm Ectopy: None - EKG Initial EKG Interpretation: Sinus Rhythm, No Acute Injury Pattern, - - old inf infarct Treatment - Dyspnea: Albuterol, Atrovent - Medical Decision Making X-ray appears to show worsening pneumonia. Her oxygen levels have been good on her home oxygen, however her breathing is worsening. I obtained an ABG, does not show any hypercapnia, which is reassuring. However, her beta agonist at home is not helping and did not help much here. I gave her the option of going home or staying and she is agreeable to staying in the hospital. She does not need to be intubated or placed in the ICU at this time, however with her COPD she certainly could decompensate, which is why I think admitting her is reasonable. ED Disposition - Plan for ED Patient: Disposition: Acute Care Hospital [facility] Diagnosis: Pneumonia due to COVID-19 virus, COPD exacerbation, Acute respiratory failure with hypoxia Referrals: Gelacio Horta MD [Primary Care Provider] -
[2020-05-09 18:49] VITALS: PULSE 88; RESP 26
[2020-05-09] MEDS: Ipratropium/Albuterol Sulfate 3 ML AMPUL.NEB INHALATION (18:49)
[2020-05-09 18:57] LABS: Hematocrit 36.3 % (37-47); Hemoglobin 12.2 g/dL (12.0-15.0); Mean Corp Hgb Conc 33.6 g/dL (32-36); Mean Corpuscular Hgb 31.3 pg (27.0-32.0); Mean Corpuscular Volume 93.1 fL (81-99); POSITIVE COUNT YES; POSITIVE DIFFERENTIAL YES; POSITIVE MORPHOLOGY YES; Platelet Count 115 K/mm3 (150-450); RBC Distribution Width CV 13.6 % (11.6-14.6); RBC Distribution Width SD 46.4 fl (35.1-43.9); White Blood Count 8.6 K/mm3 (4.4-11.0)
[2020-05-09 19:08] LABS: Differential Indicated MANUAL DIFF
[2020-05-09 19:16] LABS: Allen Test Positive; Base Excess -2 mmol/L (-2 to +2); Bicarbonate 21.8 mmol/L (22-26); Blood Gas Specimen Type ART; O2 Delivery Device Cannula; PO2 93 mmHG (75-100); SITE L Radial; SO2 98 % (95-99); Total Carbon Dioxide 23 mmol/L; pCO2 31.5 mmHg (35-45); pH 7.45 (7.35-7.45)
[2020-05-09 19:18] LABS: Anion Gap 6 (5-15); BUN 21 mg/dL (7-18); BUN/Creat Ratio 30.1 RATIO (10-20); Calcium,Total 8.6 mg/dL (8.5-10.1); Chloride 110 mmol/L (98-107); EST Glomerular Filtration Rate 88 mL/min (>60); Est Glom Filt Rate - Afr Amer 107 mL/min (>60); Estimated Creatinine Clearance 43.92 ml/min; Glucose 127 mg/dL (74-106); Sodium Level 139 mmol/L (136-145)
--- NOTE | 2020-05-09 19:21 | RAD_ITS ---
STUDY: X-RAY CHEST REASON FOR EXAM: Female, 69 years old. WORSENING SOB, PT IS COVID POSITIVE TECHNIQUE: Frontal view COMPARISON: None. FINDINGS: The lungs are expanded. Left basilar infiltrate mild infiltrate/atelectasis. Normal size heart. Normal mediastinum and niki. Normal visualized pulmonary arteries. Normal visualized aortic arch and descending thoracic aorta. Normal visualized thoracic spine. Normal visualized ribs, clavicles, and shoulders. There is no demonstrated abnormality of the visualized soft tissue structures of the upper abdomen. RAD/Chest 1 View (Portable) IMPRESSION: Left basilar infiltrate mild infiltrate/atelectasis. Electronically Signed: Go Faustin DO at 19:52 EST Tel [phone], Service support ,
--- NOTE | 2020-05-09 19:21 | EKG12_ITS ---
Test Reason : DYSRHYTHMIA Blood Pressure : / mmHG Vent. Rate : 094 BPM Atrial Rate : 094 BPM P-R Int : 136 ms QRS Dur : 074 ms QT Int : 320 ms P-R-T Axes : 032 005 057 degrees QTc Int : 400 ms Normal sinus rhythm Possible Inferior infarct , age undetermined Abnormal ECG Confirmed by MAITE BATES, JAKE ([id number]), magazine editor PAULETTE AVELAR ([id number]) on 05/10/2020 11:21:30 AM Referred By: BB Confirmed By:JAKE ARORA MD
[2020-05-09 20:17] VITALS: BP 112/65; PULSE 86; RESP 22; TEMP 36.9; O2SAT 93
[2020-05-09 20:18] VITALS: BP 112/65; PULSE 84; RESP 30; TEMP 36.9; O2SAT 93
[2020-05-09 20:40] LABS: Absolute Lymphocyte Count 1.29 X10^3/uL (0.83-4.51); Absolute Neutrophil Count 3.5 X10^3/uL (2.0-7.7); Lymphocyte # 1.29 X10^3/ul (4.0); Neutrophil # 3.53 X10^3/uL (2.7-7.7)
[2020-05-09 20:41] LABS: Lymphocyte 15 % (19-41); Metamyelocyte 10 % (0-1); Monocyte 26 % (0-10); Myelocyte 8 (0-0); Neutrophil-Band 5 % (0-5); Neutrophil-Segmented 36 % (47-70); Total Cells Counted 100 (MANUAL DIFF)
[2020-05-09 20:42] LABS: Differential Comment SCANNED; Platelet Estimate SLT DEC (ADEQ); Red Cell Morphology NORM C+C NORMAL (NORM C&C)
[2020-05-09 21:06] VITALS: BMI 27.1
[2020-05-09 21:11] VITALS: BMI 27.1
[2020-05-09 21:19] VITALS: BP 117/64; PULSE 78; RESP 20; TEMP 36.9; O2SAT 95
--- NOTE | 2020-05-09 21:39 | PCM.HP.STD ---
History of Present Illness Date of Admission: 05/09/20 Chief Complaint: Shortness of breath The patient is a 69 year old F with a PMH as below who presents with shortness of breath secondary to Covid pneumonia. She says that she had been symptomatic for about 2 to 3 weeks and presented to the ER 6 days ago with symptoms because her had tested positive first and then she caught it. Initially she came in she was given 2 weeks of prednisone 60 mg as well as a Z-Toni. She has been taking the prednisone however about 3 days after that initial presentation to the ER she came in and this time she did have some hypoxia with conversation so she was ordered 2 L nasal cannula to go home on. She presents today because she has a sensation of shortness of breath. She does not have any chest pain but she has chest tightness which she had 6 days ago in the ER as well. She is also having significant anxiety secondary to her diagnosis. So despite the fact that she feels short of breath her pulse oximetry on her 2 L nasal cannula is normal at 95%. In the ER heart rate was normal but she was little tachypneic. She was afebrile. Hemoglobin was unremarkable kidney function was normal. ABG did not show any retention, she is almost alkalotic secondary to her tachypnea. She did have a CTA on her first ER visit which showed some mild groundglass opacities bilaterally with no PE. Chest x-ray 3 days later showed maybe a slight increased prominence in her pulmonary infiltrates. Chest x-ray today shows may be a little bit more prominence bilaterally but does not appear significant. Past Medical History Past Medical History (Chronic Problems): Chronic Problems COPD (chronic obstructive pulmonary disease) (Chronic) COPD exacerbation (Chronic) Allergies No Known Allergies Allergy (Verified 05/09/20 17:59) Home Medications: Ambulatory Orders Medication Instructions Recorded ALPRAZolam [Xanax] 0.25 mg PO BID PRN 03/19/19 Apixaban [Eliquis] 5 mg PO BID 03/19/19 Atorvastatin Calcium [Lipitor] 40 mg PO QHS 03/19/19 Sertraline HCl 100 mg PO DAILY 03/19/19 Ropinirole HCl 1 mg PO BID 05/03/20 Surgical History: hysterectomy Lives: Spouse/ Significant Other Smoking Status: Current some day smoker Tobacco Use: Cigarettes Alcohol: None Drugs: None - *Family History Maternal History Items: - - Parkinson's Paternal History Items: Heart Disease Review of Systems Constitutional: Denies: Chills, Fever, Weight Change HEENT: Denies: Head Aches, Sinus Congestion, Sinus Drainage Cardiovascular: Reports: Chest Tightness. Denies: Chest Pain, Palpitations Respiratory: Reports: Cough, Shortness of Breath. Denies: Shortness of breath at rest, Sputum production Gastrointestinal: Denies: Abdominal Pain, Nausea, Vomiting Genitourinary: Denies: Dysuria Musculoskeletal: Denies: Joint Pain, Joint Tenderness Skin: Denies: Rash, Wounds Neurological: Denies: Numbness, Tingling, Focal weakness Psychiatric: Reports: Anxiety. Denies: Depression Hematologic/ Lymphatic: Denies: Easy Bruising, Easy Bleeding VTE Information - Inpt Only VTE Present on Admission: No Patient Problems: Active and Suspected Problems Pneumonia due to COVID-19 virus (Acute) Acute respiratory failure with hypoxia (Acute) - Physical Exam Vitals/I&O's: Vital Signs Temp Pulse Resp BP Pulse Ox 98.4 F 78 20 H 117/64 95 05/09/20 21:19 05/09/20 21:19 05/09/20 21:19 05/09/20 21:19 05/09/20 21:19 Oxygen Flow Rate (L/min) 2 Oxygen Delivery Method Nasal Cannula Weight: 163 lb 2.273 oz Body Mass Index (BMI) 27.1 General: Alert, Oriented x3, Cooperative, No apparent distress, - - Very anxious HEENT: Atraumatic, PERRLA, EOMI, Normocephalic Oral: Moist Mucosa Neck: Supple, No JVD Lungs: Diminished, Rhonchi, Tachypneic, Wheezes Cardiovascular: Regular rate, Regular Rhythm, Normal S1, Normal S2, No murmurs Abdomen: Soft, Non Tender, Non-Distended, No Hepato-splenomegaly Extremities: No edema, Capillary Refill Less than 3 Seconds Skin: No rashes, No breakdown Neurological: Neuro grossly intact, Sensory exam intact to light touch and pain Psych/Mental Status: Anxious Laboratory Results 05/09/20 18:45: WBC 8.6, RBC 3.90 L, Hgb 12.2, Hct 36.3 L, MCV 93.1, MCH 31.3, MCHC 33.6, RDW Std Deviation 46.4 H, RDW Coeff of Corrina 13.6, Plt Count 115 L, MPV 12.0, Neut % (Auto) Not Reportable, Absolute Neuts (auto) 3.5, Absolute Lymphs (auto) 1.29, Total Counted 100, Neutrophils % (Manual) 36 L, Band Neutrophils % 5, Lymphocytes % (Manual) 15 L, Monocytes % (Manual) 26 H, Metamyelocytes % 10 H, Myelocytes % 8 H, Differential Comment SCANNED, Diff Path Review October foll, Platelet Estimate SLT DEC, RBC Morphology NORM C+C 05/09/20 18:45: Sodium 139, Potassium 4.0, Chloride 110 H, Carbon Dioxide 23.0, Anion Gap 6, BUN 21 H, Creatinine 0.70, Estim Creat Clear Calc 43.92, Est GFR (MDRD) Af Amer 107, Est GFR (MDRD) Non-Af 88, BUN/Creatinine Ratio 30.1 H, Glucose 127 H, Calcium 8.6, Troponin I < 0.015 05/09/20 19:11: Specimen Type ART, Sample Site L Radial, pH 7.45, Bicarbonate Actual 21.8 L, Total CO2 23, Base Excess -2, O2 Saturation 98, ABG pCO2 31.5 L, ABG pO2 93, Jesus Manuel Test Positive, O2 Delivery Device Cannula, Liter Flow 2.0 Current Medications Acetaminophen (Acetaminophen 325 Mg Tablet) 650 mg PO Q6H PRN PRN PRN Reason: Pain Score 1-10/Temp > 100.7 F Alprazolam (Alprazolam 0.25 Mg Tablet) 0.25 mg PO BID PRN PRN Reason: ANXIETY Apixaban (Apixaban 5 Mg Tablet) 5 mg PO BID REPLACED BY [facility] Atorvastatin Calcium (Atorvastatin Calcium 40 Mg Tablet) 40 mg PO QHS REPLACED BY [facility] Dexamethasone (Dexamethasone 4 Mg Tablet) 6 mg PO DAILY REPLACED BY [facility] Stop: 05/13/20 10:01 Sodium Chloride () 250 mls @ 15 mls/hr IV .[id number] PRN PRN Reason: Saline Flush Melatonin (Melatonin 3 Mg Tablet) 3 mg PO QHS PRN PRN PRN Reason: INSOMNIA Non-Formulary Medication (Ropinirole Hcl) 1 mg PO BID REPLACED BY [facility] Ondansetron HCl (Ondansetron 4 Mg/2 Ml Vial) 4 mg IV Q8H PRN PRN PRN Reason: NAUSEA/VOMITING Sertraline HCl (Sertraline 100 Mg Tablet) 100 mg PO DAILY [facility] Sodium Chloride (0.9% Saline Lock 10 Ml Syringe) 10 - 40 ml IV UD PRN PRN Reason: SALINE FLUSH Assessment/Plan All Active Problems Pneumonia due to COVID-19 virus (Acute) Acute respiratory failure with hypoxia (Acute) 1. Chronic hypoxia secondary to COVID-19 pneumonia/tobacco abuse -She is not having any increasing oxygen requirements and was placed on 2 L about 3 to 4 days ago. -She is maintaining her oxygen sats on 2 L -She does have wheezing as well as rhonchi therefore we will continue with duo nebs -She was initially discharged 6 days ago on 2 weeks of prednisone, will give her 4 more doses of Decadron to complete a 10-day course of steroids -Symptoms started about 2 to 3 weeks prior to her positive Covid test therefore she is not likely a candidate for remdesivir or convalescent plasma -She quit smoking 2 months ago, will continue to encourage cessation -Continue with Eliquis, she is unsure why she is on Eliquis she states that her PCP started it on her 15,000,000 years ago 2. Hyperlipidemia -Continue with Lipitor 3. Anxiety/depression -She is highly anxious about her diagnosis with Covid and she stated that she did not want to live like this -Continue with her Xanax and her Zoloft DVT: Eliquis Inpatient E&M: 31899 Init Hosp L2
[2020-05-09] MEDS: Acetaminophen 325 MG Tablet 650 MG PO (23:48)
[2020-05-09] MEDS: ALPRAZolam 0.25 MG Tablet PO (23:48)
[2020-05-09] MEDS: MELATONIN 3 MG TABLET PO (23:48)
[2020-05-10 04:10] VITALS: BP 117/62; PULSE 64; RESP 20; TEMP 36.6; O2SAT 93
[2020-05-10 07:35] VITALS: O2SAT 92
[2020-05-10 08:14] LABS: Hematocrit 36.6 % (37-47); Hemoglobin 12.3 g/dL (12.0-15.0); Mean Corp Hgb Conc 33.6 g/dL (32-36); Mean Corpuscular Hgb 31.4 pg (27.0-32.0); Mean Corpuscular Volume 93.4 fL (81-99); POSITIVE COUNT YES; POSITIVE DIFFERENTIAL YES; POSITIVE MORPHOLOGY YES; Platelet Count 119 K/mm3 (150-450); RBC Distribution Width CV 13.9 % (11.6-14.6); RBC Distribution Width SD 47.4 fl (35.1-43.9); Red Blood Count 3.92 M/mm3 (4.2-5.4); White Blood Count 10.6 K/mm3 (4.4-11.0)
[2020-05-10] MEDS: Sertraline 100 MG Tablet PO (08:15)
[2020-05-10] MEDS: dexAMETHasone 2 MG TABLET 6 MG PO (08:15)
[2020-05-10] MEDS: Pramipexole Di-HCl 0.5 MG Tablet PO ×2 (08:15→19:53)
[2020-05-10] MEDS: APIXABAN 5 MG TABLET PO ×2 (08:15→19:53)
[2020-05-10] MEDS: ALPRAZolam 0.25 MG Tablet PO (08:15)
[2020-05-10 08:17] VITALS: BP 99/61; PULSE 65; RESP 20; TEMP 36.5; O2SAT 95
[2020-05-10 08:20] LABS: Differential Indicated MANUAL DIFF
[2020-05-10 08:27] LABS: Anion Gap 5 (5-15); BUN 18 mg/dL (7-18); BUN/Creat Ratio 29.5 RATIO (10-20); Calcium,Total 8.8 mg/dL (8.5-10.1); Chloride 110 mmol/L (98-107); Creatinine, Serum 0.61 mg/dL (0.55-1.02); EST Glomerular Filtration Rate 103 mL/min (>60); Est Glom Filt Rate - Afr Amer 125 mL/min (>60); Estimated Creatinine Clearance 47.78 ml/min; Glucose 107 mg/dL (74-106); Potassium 3.6 mmol/L (3.5-5.1); Sodium Level 140 mmol/L (136-145)
[2020-05-10 08:45] LABS: Lymphocyte 17 % (19-41); Metamyelocyte 6 % (0-1); Monocyte 15 % (0-10); Neutrophil-Band 19 % (0-5); Neutrophil-Segmented 43 % (47-70); Total Cells Counted 100 (MANUAL DIFF)
[2020-05-10 08:47] LABS: Absolute Neutrophil Count 6.6 X10^3/uL (2.0-7.7); Reactive Lymphocyte 1+
[2020-05-10 08:49] LABS: Platelet Estimate ADEQUATE (ADEQ); Red Cell Morphology NORM C+C NORMAL (NORM C&C)
[2020-05-10 10:30] VITALS: BP 132/73; PULSE 70; RESP 20; TEMP 36.6; O2SAT 93
--- NOTE | 2020-05-10 11:27 | PN_ITS ---
Patient Problems: Active and Suspected Problems Pneumonia due to COVID-19 virus (Acute) Acute respiratory failure with hypoxia (Acute) Reason for Visit: Follow-up on shortness of breath/COVID-19 pneumonia/anxiety disorder Subjective: Patient was seen and examined. She complains of feeling very anxious. She is usually anxious at baseline. She remains on 2 L of oxygen as she has been. Objective: Physical exam: General: Alert, Oriented x3, Cooperative, No apparent distress, - - Very anxious HEENT: Atraumatic, PERRLA, EOMI, Normocephalic Oral: Moist Mucosa Neck: Supple, No JVD Lungs: Diminished, Rhonchi, Tachypneic, Wheezes Cardiovascular: Regular rate, Regular Rhythm, Normal S1, Normal S2, No murmurs Abdomen: Soft, Non Tender, Non-Distended, No Hepato-splenomegaly Extremities: No edema, Capillary Refill Less than 3 Seconds Skin: No rashes, No breakdown Neurological: Neuro grossly intact, Sensory exam intact to light touch and pain Psych/Mental Status: Anxious Vitals/I&O's: Vital Signs Temp Pulse Resp BP Pulse Ox 97.9 F 70 20 H 132/73 H 93 05/10/20 10:30 05/10/20 10:30 05/10/20 10:30 05/10/20 10:30 05/10/20 10:30 Oxygen Flow Rate (L/min) 2 Oxygen Delivery Method Nasal Cannula Weight: 74 kg Body Mass Index (BMI) 27.1 Laboratory Results 05/09/20 18:45: WBC 8.6, RBC 3.90 L, Hgb 12.2, Hct 36.3 L, MCV 93.1, MCH 31.3, MCHC 33.6, RDW Std Deviation 46.4 H, RDW Coeff of Corrina 13.6, Plt Count 115 L, MPV 12.0, Neut % (Auto) Not Reportable, Absolute Neuts (auto) 3.5, Absolute Lymphs (auto) 1.29, Total Counted 100, Neutrophils % (Manual) 36 L, Band Neutrophils % 5, Lymphocytes % (Manual) 15 L, Monocytes % (Manual) 26 H, Metamyelocytes % 10 H , Myelocytes % 8 H, Differential Comment SCANNED, Diff Path Review Jaki bella Pla telet Estimate SLT DEC, RBC Morphology NORM C+C 05/09/20 18:45: Sodium 139, Potassium 4.0, Chloride 110 H, Carbon Dioxide 23.0, Anion Gap 6, BUN 21 H, Creatinine 0.70, Estim Creat Clear Calc 43.92, Est GFR (MDRD) Af Amer 107, Est GFR (MDRD) Non-Af 88, BUN/Creatinine Ratio 30.1 H, Glucose 127 H, Calcium 8.6, Troponin I < 0.015 05/09/20 19:11: Specimen Type ART, Sample Site L Radial, pH 7.45, Bicarbonate Actual 21.8 L, Total CO2 23, Base Excess -2, O2 Saturation 98, ABG pCO2 31.5 L, ABG pO2 93, Jesus Manuel Test Positive, O2 Delivery Device Cannula, Liter Flow 2.0 05/10/20 07:50: WBC 10.6, RBC 3.92 L, Hgb 12.3, Hct 36.6 L, MCV 93.4, MCH 31.4, MCHC 33.6, RDW Std Deviation 47.4 H, RDW Coeff of Corrina 13.9, Plt Count 119 L, MPV 12.0, Neut % (Auto) Not Reportable, Absolute Neuts (auto) 6.6, Absolute Lymphs (auto) 1.80, Total Counted 100, Neutrophils % (Manual) 43 L, Band Neutrophils % 19 H, Lymphocytes % (Manual) 17 L, Monocytes % (Manual) 15 H, Metamyelocytes % 6 H, Diff Path Review May foll, Reactive Lymphocytes 1+, Platelet Estimate ADEQUATE, RBC Morphology NORM C+C 05/10/20 07:50: Sodium 140, Potassium 3.6, Chloride 110 H, Carbon Dioxide 25.0, Anion Gap 5, BUN 18, Creatinine 0.61, Estim Creat Clear Calc 47.78, Est GFR (MDRD) Af Amer 125, Est GFR (MDRD) Non-Af 103, BUN/Creatinine Ratio 29.5 H, Glucose 107 H, Calcium 8.8 Current Medications Acetaminophen (Acetaminophen 325 Mg Tablet) 650 mg PO Q6H PRN PRN PRN Reason: Pain Score 1-10/Temp > 100.7 F Last Admin: 05/09/20 23:48 Dose: 650 mg Documented by: Albuterol Sulfate (Albuterol Sulfate 18 Gm Inhaler (200 Puffs)) 2 puff IH Q4H PRN PRN PRN Reason: SOB &/OR WHEEZING Alprazolam (Alprazolam 0.25 Mg Tablet) 0.25 mg PO BID PRN PRN PRN Reason: ANXIETY Last Admin: 05/10/20 08:15 Dose: 0.25 mg Documented by: Apixaban (Apixaban 5 Mg Tablet) 5 mg PO BID [facility] Last Admin: 05/10/20 08:15 Dose: 5 mg Documented by: Atorvastatin Calcium (Atorvastatin Calcium 40 Mg Tablet) 40 mg PO QHS [facility] Last Admin: 05/09/20 23:07 Dose: Not Given Documented by: Dexamethasone (Dexamethasone 2 Mg Tablet) 6 mg PO DAILY [facility] Stop: 05/13/20 10:01 Last Admin: 05/10/20 08:15 Dose: 6 mg Documented by: Sodium Chloride () 250 mls @ 15 mls/hr IV .[id number] PRN PRN Reason: Saline Flush Melatonin (Melatonin 3 Mg Tablet) 3 mg PO QHS PRN PRN PRN Reason: INSOMNIA Last Admin: 05/09/20 23:48 Dose: 3 mg Documented by: Miscellaneous Information (Inhaler, Assist Devices 1 Each Spacer) 1 each INHALATION PRN PRN PRN Reason: WITH ALBUTEROL INHALER Nicotine (Nicotine 21 Mg Patch) 21 mg TD DAILY [facility] Nicotine Polacrilex (Nicotine Polacrilex 2 Mg Gum) 2 mg PO Q2H PRN PRN PRN Reason: Nicotine Craving Ondansetron HCl (Ondansetron 4 Mg/2 Ml Vial) 4 mg IV Q8H PRN PRN PRN Reason: NAUSEA/VOMITING Pramipexole Dihydrochloride (Pramipexole Di-Hcl 0.5 Mg Tablet) 0.5 mg PO BID [facility] Last Admin: 05/10/20 08:15 Dose: 0.5 mg Documented by: Sertraline HCl (Sertraline 100 Mg Tablet) 100 mg PO DAILY [facility] Last Admin: 05/10/20 08:15 Dose: 100 mg Documented by: Sodium Chloride (0.9% Saline Lock 10 Ml Syringe) 10 - 40 ml IV UD PRN PRN Reason: SALINE FLUSH STROKE Vital Signs/Narrative: Vital Signs Temp Pulse Resp BP Pulse Ox 05/10/20 10:30 97.9 F 70 20 H 132/73 H 93 05/10/20 08:17 97.7 F L 65 20 H 99/61 95 05/10/20 07:35 92 Medical Necessity - Tobacco Use Smoking Status: Current some day smoker Tobacco Use: Cigarettes Assessment/Plan All Active Problems Pneumonia due to COVID-19 virus (Acute) Acute respiratory failure with hypoxia (Acute) 1. Acute hypoxic respiratory insufficiency secondary to COVID-19 pneumonia/possible COPD exacerbation Patient's symptoms started about 2 to 3 weeks ago. Diagnosed with COVID-19 pneumonia 6 days ago Currently on dexamethasone, will switch patient's to IV Solu-Medrol and treat as COPD exacerbation Chest x-ray showed left basilar mild infiltrate vs atelectasis No fevers seen here, continue breathing treatment, continue to encourage use of incentive spirometer We will check respiratory panel 2. Anxiety/depression disorder, worsening Patient is on Xanax 0.25 mg 3 times daily at home, will increase to 0.5 mg 3 times daily Continue to monitor 3. Nicotine dependence, on replacement 4. DVT PPx- on [facility] Inpatient E&M: [id number] Subs Hosp L2
--- NOTE | 2020-05-10 13:45 | CASEMGMT ---
RN CM called patient in room for initial transition planning/care coordination assessment. RN CM introduced self and role at [facility]. Patient is alert and oriented. Patient willing to participate in assessment and is able to answer all questions appropriately. Care providers, pharmacy, and demographics verified. Patient wishes to discharge home, denies need for home health at this time. Patient states she has no further needs or concerns at this time. CM to follow for discharge planning needs that may arise. PCP: Rula Specialists: Javier, neurology Preferred Pharmacy: [facility] retail at discharge Insurance: [facility] Medicare Prescription Benefit: yes Living Will/HPOA: none LNOK: Living Arrangements: Patient lives with in a 1 story home with 2 steps and railing to enter the home. Patient states she is independent at home. Transportation: self/ DME/HHC: Patient was setup with home oxygen with [employer] on 05/06/20 at 3lpm. Patient has portable tank and concentrator at home. Will monitor for additional oxygen needs at discharge. Disposition Plan: Patient to discharge home with family support and follow-up plans in place. Genny ALVA, RN, CM
[2020-05-10 14:22] VITALS: BP 108/63; PULSE 67; RESP 18; TEMP 36.6; O2SAT 97
[2020-05-10 14:30] LABS: Pathologist Review Reviewed
[2020-05-10] MEDS: Acetaminophen 325 MG Tablet 650 MG PO (18:55)
[2020-05-10 19:47] VITALS: BP 132/63; PULSE 69; RESP 16; TEMP 37.2; O2SAT 95
[2020-05-10] MEDS: ALPRAZolam 0.5 MG Tablet PO (19:53)
[2020-05-10] MEDS: Atorvastatin Calcium 40 MG Tablet PO (19:53)
[2020-05-10] MEDS: MELATONIN 3 MG TABLET PO (19:53)
[2020-05-10] MEDS: 0.9% Saline Lock 10 ML Syringe IV (19:54)
[2020-05-11] VITALS (7 sets, daily range): BP systolic 110–142; BP diastolic 57–94; PULSE 64–73; RESP 15–22; TEMP 36.6–37; O2SAT 86–95
[2020-05-11] MEDS: Acetaminophen 325 MG Tablet 650 MG PO (03:16)
[2020-05-11] MEDS: ALPRAZolam 0.5 MG Tablet PO ×2 (03:17→10:21)
[2020-05-11] MEDS: 0.9% Saline Lock 10 ML Syringe IV ×2 (06:13→13:08)
[2020-05-11] MEDS: Sertraline 100 MG Tablet PO (08:06)
[2020-05-11] MEDS: Pramipexole Di-HCl 0.5 MG Tablet PO (08:06)
[2020-05-11] MEDS: APIXABAN 5 MG TABLET PO (08:06)
--- NOTE | 2020-05-11 12:55 | DCINST_ITS ---
- Discharge Diagnoses Current Active Problems: Current Active and Chronic Problems COPD (chronic obstructive pulmonary disease) (Chronic) Pneumonia due to COVID-19 virus (Acute) COPD exacerbation (Chronic) Acute respiratory failure with hypoxia (Acute) Reason(s) for Visit for Discharge Instructions: Acute COVID-19 inf ection/pneumonia You will use the following diet at home:: Regular Your food should be the consistency of: Regular Discharge Activity: Return to Normal Activity Additional Instructions: Continue to use your incentive spirometer all the time. Complete the oral steroid and aspirin as prescribed. You are being discharged with oxygen. Continue to use your oxygen all the time. Be careful of going near open flames whilst on oxygen. Do not smoke whilst on oxygen.Continue to remain active and eat healthy. Let your doctor know if you develop fever >101.3F or have progressive worsening shortness of breath. You are strongly advised to stop smoking. You have been prescribed nicotine patch. Follow-up with your primary care doctor and also with pulmonology to have your continued oxygen use reevaluated. Complete your steroid taper. Allergies/Adverse Reactions: Allergies No Known Allergies Allergy (Verified 05/09/20 17:59) Medications to take at Discharge Apixaban [Eliquis] 5 mg PO BID 03/19/19 Atorvastatin Calcium [Lipitor] 40 mg PO QHS 03/19/19 Sertraline HCl 100 mg PO DAILY 03/19/19 Ropinirole HCl 1 mg PO BID 05/03/20 ALPRAZolam [Xanax] 0.5 mg PO TID PRN PRN 5 Days #15 tab 05/11/20 Acetaminophen [Tylenol Tablet] 650 mg PO Q6H PRN PRN tab 05/11/20 Nicotine [Nicoderm Cq] 21 mg TD DAILY 30 Days #30 patch 05/11/20 Prednisone 10 mg PO DAILY #30 tab 05/11/20 Bad tablePrimary Care Physician: Gelacio Horta MD [Primary Care Provider] - Please follow up with your Primary Care Physician in: within 1 week Test Results: Test results from this visit will be discussed in further detail at your follow- up appointment, if applicable. Proposed Discharge Date: 05/11/20
[2020-05-13 12:52] LABS: Pathologist Review Reviewed
--- NOTE | 2020-05-13 13:56 | CASEMGMT ---
[facility] CM DC PHONE CALL DC DATE: 05.11.2020 DC DISPOSITION: Home DC DIAGNOSIS: COVID 19 LACE/STRATA: 05/16 F/U APPTS MADE PRIOR TO DC: no (weekend dc) Attempted call to patient. No answer and no messaging. Osvaldo RUSSELLN RN AC
--- NOTE | 2020-05-19 19:09 | DS.PCM_ITS ---
Discharge Date and Diagnosis - Problem List Patient Problems: Active and Suspected Problems Pneumonia due to COVID-19 virus (Acute) Acute respiratory failure with hypoxia (Acute) Date of Admission: 05/09/20 Date of Discharge: 06/10/20 - Primary Discharge Diagnosis Acute Problems: Active Problems Pneumonia due to COVID-19 virus (Acute) Acute respiratory insufficiency with hypoxia (Acute) Nicotine dependence - Secondary Discharge Diagnosis Chronic Problems: Chronic Problems COPD (chronic obstructive pulmonary disease) (Chronic) COPD exacerbation (Chronic) Hospital Course and Treatment Imaging Results: Clinical Impression(s) from Imaging Studies Chest X-Ray 05/09/20 19:21 IMPRESSION: Left basilar infiltrate mild infiltrate/atelectasis. Electronically Signed: Go Faustin DO at 19:52 EST Tel [phone], Service support , Operations: None Procedures: None Summary of Care Provided: The patient is a 69 year old F with PMHx of COPD, not on oxygen who comes in with a 2-3 week history of shortness of breath. She was seen in the ED 6 days earlier with progressive SOB and given a 2 week history of prednisone and a Z- pete. She re-presented to the ED 3 days later and qualified for discharge on 2L oxygen. She comes in for this admission through the ED because she feels progressively SOB. She was found to be saturating 95% on 2L of oxygen. Patient appeared anxious and tachypneic. Her blood work was unremarkable. Her CXR showed some improvement over previous. ABG did not show any respiratory acidosis. She was admitted and managed on breathing treatments and methyl prednisone. She was found to be very anxious during this hospital stay and her baseline Xanax was increased to 0.5mg tid with overall improvement. Patient was discharged home on a steroid taper and increased dose of Xanax. She will follow-up with her PCP within 1 week. Patient Problems: Active and Suspected Problems Pneumonia due to COVID-19 virus (Acute) Acute respiratory failure with hypoxia (Acute) Subjective: On the day of discharge, patient was seen and examined. She remains on 2L oxygen. Feels less anxious. Ambulated in room. She qualifies for same amount of oxygen. Objective: Physical exam: General: Alert, Oriented x3, Cooperative, No apparent distress, - - Very anxious HEENT: Atraumatic, PERRLA, EOMI, Normocephalic Oral: Moist Mucosa Neck: Supple, No JVD Lungs: Diminished, Rhonchi, Tachypneic, Wheezes Cardiovascular: Regular rate, Regular Rhythm, Normal S1, Normal S2, No murmurs Abdomen: Soft, Non Tender, Non-Distended, No Hepato-splenomegaly Extremities: No edema, Capillary Refill Less than 3 Seconds Skin: No rashes, No breakdown Neurological: Neuro grossly intact, Sensory exam intact to light touch and pain Psych/Mental Status: Anxious - Physical Exam Vitals/I&O's: Vital Signs Temp Pulse Resp BP Pulse Ox 98.4 F 73 20 H 124/74 H 94 05/11/20 13:14 05/11/20 13:14 05/11/20 13:14 05/11/20 13:14 05/11/20 13:14 Oxygen Flow Rate (L/min) [ 2 AMBULATION with Oxygen] Oxygen Flow Rate (L/min) 2 Oxygen Delivery Method Nasal Cannula Weight: 74 kg Body Mass Index (BMI) 27.1 Discharge Diet: No Restrictions Discharge Activity: Return to Normal Activity Home Medications: Medications to take at Discharge Apixaban [Eliquis] 5 mg PO BID 03/19/19 Atorvastatin Calcium [Lipitor] 40 mg PO QHS 03/19/19 Sertraline HCl 100 mg PO DAILY 03/19/19 Ropinirole HCl 1 mg PO BID 05/03/20 Acetaminophen [Tylenol Tablet] 650 mg PO Q6H PRN PRN tab 05/11/20 Nicotine [Nicoderm Cq] 21 mg TD DAILY 30 Days #30 patch 05/11/20 Prednisone 10 mg PO DAILY #30 tab 05/11/20 Following Prescriptions Were Given to Patient: Nicotine [Nicoderm Cq] 21 mg TD DAILY 30 Days #30 patch Prescription Printed Prednisone 10 mg PO DAILY #30 tab Prescription Printed Primary Care Physician: Gelacio Horta MD [Primary Care Provider] - Please follow up with your Primary Care Physician in: within 1 week Disposition: Home Minutes spent on discharge:: 40 Medical Necessity - Tobacco Use Smoking Status: Current some day smoker Tobacco Use: Cigarettes Meaningful Use Info Meaningful Use Diagnoses (Choose all that apply): None applicable Inpatient E&M: [id number] [facility]
== END 2020-05-11 14:55 | disposition home or self-care (01) | DRG 177 ==
LOC: ED 19:23 → MS2 20:22
PROVIDERS: Admitting Provider Family Medicine; Emergency Provider Emergency Medicine; PCP Family Medicine; Visit Provider Internal Medicine
DX: U07.1 COVID-19 (principal); J12.89 Other viral pneumonia; J44.0 Chronic obstructive pulmonary disease with (acute) lower respiratory infection; J44.1 Chronic obstructive pulmonary disease with (acute) exacerbation; D69.59 Other secondary thrombocytopenia; Z79.01 Long term (current) use of anticoagulants; Z99.81 Dependence on supplemental oxygen; F17.210 Nicotine dependence, cigarettes, uncomplicated; E78.5 Hyperlipidemia, unspecified; F32.9 Major depressive disorder, single episode, unspecified; F41.9 Anxiety disorder, unspecified; Z79.899 Other long term (current) drug therapy; R06.89 Other abnormalities of breathing; R09.02 Hypoxemia
CPT/HCPCS: 36415; 36600; 71045; 80048; 80053; 81001; 82803; 83605; 84484; 85025; 87633; 93005; 94640; 96361; 96374; 99283; 99284; 99406; A4216

== ENCOUNTER 2020-07-08 08:34 | Emergency (ER) | payer MEDICARE, SELFPAY ==
[2020-07-08 08:35] VITALS: BP 100/57; PULSE 97; RESP 20; TEMP 36.1; O2SAT 94; BMI 28.3
--- NOTE | 2020-07-08 08:59 | EKG12_ITS ---
Test Reason : SOB Blood Pressure : / mmHG Vent. Rate : 081 BPM Atrial Rate : 081 BPM P-R Int : 138 ms QRS Dur : 074 ms QT Int : 348 ms P-R-T Axes : 024 013 056 degrees QTc Int : 404 ms Normal sinus rhythm Normal ECG Confirmed by MOUNA BATES, FRANCISCO ([id number]), editorial writer VAZQUEZ HEATH ([id number]) on 07/10/2020 11:10:04 AM Referred By: ANALIA Confirmed By:FRANCISCO FREIRE MD
[2020-07-08 09:10] VITALS: PULSE 112; RESP 22
[2020-07-08] MEDS: Ipratropium/Albuterol Sulfate 3 ML AMPUL.NEB INHALATION (09:15)
[2020-07-08] MEDS: Albuterol 2.5 MG/3 ML VIAL.NEB. INHALATION ×3 (09:20→09:40)
[2020-07-08 09:27] VITALS: BP 150/105; PULSE 115; RESP 20
[2020-07-08 09:31] LABS: Allen Test Positive; Base Excess -1 mmol/L (-2 to +2); Bicarbonate 23.7 mmol/L (22-26); O2 Delivery Device Room Air; PO2 37 mmHG (75-100); SITE R Radial; SO2 72 % (95-99); Total Carbon Dioxide 25 mmol/L; pH 7.43 (7.35-7.45)
[2020-07-08] MEDS: predniSONE 20 MG Tablet 60 MG PO (09:42)
[2020-07-08 09:56] LABS: Absolute Lymphocyte Count 1.35 X10^3/uL (0.83-4.51); Absolute Neutrophil Count 2.3 X10^3/uL (2.0-7.7); Basophil# 0.01 X10^3/uL; Basophil% 0.2 % (0-1); Eosinophil# 0.09 X10^3/uL; Eosinophils% 1.9 % (0-5); Hematocrit 37.5 % (37-47); Hemoglobin 12.1 g/dL (12.0-15.0); Lymphocyte # 1.35 X10^3/ul (4.0); Lymphocyte % 28.3 % (19-41); Mean Corp Hgb Conc 32.3 g/dL (32-36); Mean Corpuscular Hgb 30.8 pg (27.0-32.0); Mean Corpuscular Volume 95.4 fL (81-99); Mean Platelet Vol. 10.3 fl (6.2-12.0); Monocyte# 0.81 X10^3/uL; NRBC Flagged by Analyzer 0 % (0-5); Neutrophil # 2.31 X10^3/uL (2.7-7.7); Neutrophil % 48.4 % (47-70); Platelet Count 327 K/mm3 (150-450); RBC Distribution Width CV 15.3 % (11.6-14.6); RBC Distribution Width SD 53.7 fl (35.1-43.9); Red Blood Count 3.93 M/mm3 (4.2-5.4); White Blood Count 4.8 K/mm3 (4.4-11.0)
[2020-07-08 10:09] LABS: Anion Gap 8 (5-15); BUN 12 mg/dL (7-18); Calcium,Total 9.2 mg/dL (8.5-10.1); Chloride 108 mmol/L (98-107); EST Glomerular Filtration Rate 87 mL/min (>60); Est Glom Filt Rate - Afr Amer 106 mL/min (>60); Estimated Creatinine Clearance 47.78 ml/min; Glucose 115 mg/dL (74-106); Sodium Level 140 mmol/L (136-145)
--- NOTE | 2020-07-08 10:10 | CPS ---
not a ABG it was venous Dr. George knows and does not need a venous
--- NOTE | 2020-07-08 10:19 | ED.VIS.GEN ---
History of Present Illness Chief Complaint: Shortness of Breath Informant: Patient Onset: Weeks Context: Gradual Onset Timing: Continuous Quality: Fatigue, weakness, dyspnea Location: Respiratory and generalized Current Severity: Mild Maximum Severity: Moderate Worsened by: Increased shortness of breath with activity Associated Symptoms: Fatigue Narrative: Patient is a 69-year-old woman who has COPD and does have home oxygen who presents with shortness of breath, dyspnea on exertion, cough, wheezing for weeks to months. She had a positive Covid test May 03, 2020. She states she feels fatigued since she was diagnosed with Covid. She does report bifrontal headache. The headache is not positional. It did not occur abruptly. There is no associated symptoms. She denies neck pain or neck stiffness. She denies photophobia. She denies rhinorrhea, congestion or postnasal drainage. She denies sore throat. She denies decreased hearing, ringing or ears or drainage from ears. She does have history of COPD. She has been on prednisone recently. She denies anginal equivalent chest discomfort. She denies chest discomfort or any type. She does have history of PE. She denies pleuritic chest pain. She is on Eliquis and states she has not missed any of her doses. She denies lower extremity swelling or, pain or discoloration. She denies dysuria, frequency, urgency or hematuria. She denies nausea, vomiting or diarrhea. She denies black or maroon stool. Prior similar symptoms: Yes Recent Illness/Hospitalization: No - Past Medical History (1) Pneumonia due to COVID-19 virus Status: Acute (2) COPD exacerbation Status: Chronic (3) History of Parkinson's disease Status: Acute Past Medical History - Allergies and Home Meds Allergies/Adverse Reactions: Allergies No Known Allergies Allergy (Verified 07/08/20 08:35) Primary Care Physician: Gelacio Horta MD [Primary Care Provider] - Prior records reviewed: Yes Surgical History: hysterectomy Lives: Alone Smoking Status: Current some day smoker Alcohol: None Drugs: None - Family History Maternal Family History: Reports: - - Parkinson's Paternal Family History: Reports: Heart Disease Review of Systems General: Reports: Malaise. Denies: Chills, Fever, Subjective, Sweats Eyes: Denies: Visual changes - bilaterally, Blurred Vision - bilaterally, Diplopia ENT: Denies: Bilateral ear pain, Rhinorrhea, Sore throat Cardiovascular: Denies: Chest pain, Palpitations, Heart racing Respiratory: Reports: Dyspnea, Cough, Dyspnea on exertion. Denies: Sputum, Orthopnea, Paroxysmal nocturnal dyspnea Gastrointestinal: Denies: Abdominal pain, Nausea, Vomiting, Diarrhea, Melena, Hematochezia Genitourinary: Denies: Dysuria, Hematuria, Frequency Musculoskeletal: Denies: Myalgias, Arthralgias, Neck pain, Back pain, Swelling, Extremity Pain, -, - Skin: Denies: Rash, Wounds Neurological: Reports: Headache, Weakness. Denies: Parasthesia Psych: Reports: Depression. Denies: Anxiety Endocrine: Denies: Polyuria, Polydipsia Hematologic: Denies: Easy bruising, Easy bleeding Allergy: Denies: Uticaria Physical Exam Vital Signs/Narrative: Vital Signs Temp Pulse Resp BP Pulse Ox 07/08/20 09:27 115 H 20 H 150/105 H 07/08/20 08:35 97.0 F L 97 20 H 100/57 L 94 Inital Vital Signs reviewed: Yes General: Well nourished, Well developed, Acute Distress Head: Normocephalic, Atraumatic Eyes: Perrl, EOMI. Negative for: Pale conjunctiva, Scleral icterus ENT: No rhinorrhea, TM's clear Neck: Supple, Nontender, No lymphadenopathy, No JVD Cardiovascular: Regular rate, Regular rhythm, No murmurs, Normal S1, Normal S2 Respiratory: No distress, Chest nontender, Wheezing, Diminished, Decreased Air Movement. Negative for: CTA bilaterally, Retractions Abdomen: Soft, Nontender, Nondistended, Normal bowel sounds. Negative for: Hepatomegaly, Splenomegaly, Mass, Pulsatile mass, Ventral hernia, Umbilical hernia Rectal: Deferred Back: Nontender, Normal Inspection. Negative for: CVA tenderness Extremities: Nontender, No edema, - - There is no asymmetry, swelling, discoloration, leg vein distention, palpable cords or tenderness along the distribution of the deep venous system.. Negative for: Tenderness Skin: Normal color, No rash, No Trauma. Negative for: Cyanosis, Diaphoresis, Jaundice Neurological: Alert, Oriented x3, Cranial nerves II-XII grossly intact, Normal Strength, Normal Sensation, - - Patient has tremor. There is cogwheel rigidity consistent with Parkinson's disease. Psychological: Normal affect, Normal Mood Diagnostic/Tx/Re-eval Chest X-Ray - ED: 1 View, Read by ED Physician, Normal, Heart, Mediastinum, Bony Structures, No Acute Disease, Chronic Changes, - - Chest x-ray was interpreted by me as no acute process with chronic changes. There is no change from prior. The x-ray was interpreted by me at 1216. 07/08/20 08:59 Chest PA and Lateral [RAD] Stat Laboratory Results 07/08/20 07/08/20 07/08/20 08:45 08:45 09:23 WBC 4.8 RBC 3.93 L Hgb 12.1 Hct 37.5 MCV 95.4 MCH 30.8 MCHC 32.3 RDW Std Deviation 53.7 H RDW Coeff of Corrina 15.3 H Plt Count 327 MPV 10.3 Immature Gran % (Auto) 4.200 H Neut % (Auto) 48.4 Lymph % (Auto) 28.3 [place] % (Auto) 17.0 H Eos % (Auto) 1.9 Baso % (Auto) 0.2 Absolute Neuts (auto) 2.3 Absolute Lymphs (auto) 1.35 Nucleated RBC % 0 Specimen Type ART Sample Site R Radial pH 7.43 Bicarbonate Actual 23.7 Total CO2 25 Base Excess -1 O2 Saturation 72 L ABG pCO2 36.0 ABG pO2 37 L* Jesus Manuel Test Positive O2 Delivery Device Room Air Sodium 140 Potassium 4.0 Chloride 108 H Carbon Dioxide 24.0 Anion Gap 8 BUN 12 Creatinine 0.70 Estim Creat Clear Calc 47.78 Est GFR (MDRD) Af Amer 106 Est GFR (MDRD) Non-Af 87 BUN/Creatinine Ratio 17.0 Glucose 115 H Calcium 9.2 The ABG represents a VBG. There is no acid-base disturbance and no evidence of CO2 retention. Electrolytes are unremarkable. CBC is unremarkable. 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 We will have her follow-up with her primary care physician. She was informed there is a study performed by Dr. Gualberto Conteh regarding long hauler - EKG Initial EKG Interpretation: Sinus Rhythm - Normal sinus rhythm with ventricular rate 81. GA interval is 138 ms. Cures duration 74 ms. QT duration 348 ms. [place] is normal. The EKG is normal. - Medical Decision Making Symptoms may be due to COPD or what is known as long hollers syndrome due to Covid. Will obtain blood work to rule out anemia, electrolyte abnormality, renal impairment, and EKG to assess for dysrhythmia/ischemic changes. ED Disposition - Plan for ED Patient: Disposition: Home or Assisted Living Diagnosis: Post-acute COVID-19 syndrome Instructions: Coronavirus Disease 2019 (COVID-19): Overview, Coronavirus Disease 2019 (COVID-19): Caring for Yourself or Others Referrals: Gelacio Horta MD [Primary Care Provider] - 1-2 Weeks
--- NOTE | 2020-07-08 11:44 | RAD_ITS ---
STUDY: X-RAY CHEST REASON FOR EXAM: Female, 69 years old. SOB Positive for covid month ago, never really got better per pt TECHNIQUE: AP and lateral views of the chest. COMPARISON: Comparison is made with prior study dated 05/09/2020. FINDINGS: EKG electrodes are seen. Hyperinflation. The lungs are clear. There is no demonstrated pleural abnormality. Normal size heart. Normal mediastinum and niki. Normal visualized pulmonary arteries. There is atherosclerotic calcification of the aortic arch with tortuosity. There are degenerative changes of the visualized thoracic spine. Normal visualized ribs, clavicles, and shoulders. There is no demonstrated abnormality of the visualized soft tissue structures of the upper abdomen. RAD/Chest PA and Lateral IMPRESSION: Hyperinflation. The lungs are clear. Electronically Signed: Mitch Merida MD at 12:20 EST , Service support ,
[2020-07-08 12:27] VITALS: BP 101/55; PULSE 92; RESP 18; O2SAT 92
[2020-07-08 13:38] VITALS: BP 98/67; PULSE 91; RESP 18; O2SAT 97
[2020-07-08] MEDS: LORazepam 0.5 MG Tablet PO (13:45)
[2020-07-09 08:57] LABS: Blood Gas Specimen Type VEN
== END 2020-07-08 13:46 | disposition home or self-care (01) ==
PROVIDERS: Emergency Provider Emergency Medicine; PCP Family Medicine
DX: R06.02 Shortness of breath (principal); R05 Cough; R51.9 Headache, unspecified; B94.8 Sequelae of other specified infectious and parasitic diseases; J44.9 Chronic obstructive pulmonary disease, unspecified; G20 Parkinson's disease; F17.200 Nicotine dependence, unspecified, uncomplicated; Z86.711 Personal history of pulmonary embolism; Z79.02 Long term (current) use of antithrombotics/antiplatelets
CPT/HCPCS: 71046; 80048; 82803; 85025; 93005; 94640; 99284; A4216

== ENCOUNTER → 2020-07-25 08:13 | Outpatient (CLI) | payer MEDICARE, SELFPAY ==
[2020-07-15 13:19] VITALS: BMI 31.6
[2020-07-25 08:40] VITALS: PULSE 101; PULSE 102; PULSE 106; PULSE 83; PULSE 84; PULSE 98; O2SAT 88; O2SAT 90; O2SAT 92; O2SAT 94; O2SAT 96; O2SAT 97
--- NOTE | 2020-07-25 08:42 | CPS ---
Patient states that she wears 3-4 lpm at home almost all day. Patient was not on oxygen in the waiting room and walked down to testing room. After sitting and talking, SpO2 92% on room air, so we started testing without O2. At second minute SpO2 88%, stopped patient and placed on 2 lpm O2. Patient recovered quickly to 95% and began walking the rest of the test without breaks.
--- NOTE | 2020-07-25 12:45 | PCM.PSN.6M ---
PSN 6 Minute Walk Test - 6 Minute Walk Test 6 Minute Walk Test: 6 Minute Walk Test PSN:6-Minute Walk Test Start: 07/25/20 08:39 Freq: Status: Active Protocol: [id number] Document 07/25/20 08:40 CRISTOPHER (Rec: 07/25/20 08:46 CRISTOPHER [id number]) 6 Minute Walk Test Date Performed 07/25/20 Time Performed 08:15 Height 5 ft 2.5 in Weight: 170 lb Weight in Pounds 170.[address]: Gualberto Wong Assistive device used: None Pre-test Oxygen Delivery Method Room Air Pulse Ox (%) 92 Pulse Rate (60-100 beats/min) 83 Dyspnea [place] Scale (0-10) 0 Exertion [place] Scale (6-20) 6 1st minute Oxygen Delivery Method Room Air Pulse Ox (%) 90 Pulse Rate (60-100 beats/min) 102 H 2nd minute Oxygen Delivery Method Room Air Pulse Ox (%) 88 Pulse Rate (60-100 beats/min) 106 H 3rd minute Oxygen Flow Rate (L/min) (L/min) 2 Oxygen Delivery Method Nasal Cannula Pulse Ox (%) 96 Pulse Rate (60-100 beats/min) 98 4th minute Oxygen Flow Rate (L/min) (L/min) 2 Oxygen Delivery Method Nasal Cannula Pulse Ox (%) 94 Pulse Rate (60-100 beats/min) 101 H 5th minute Oxygen Flow Rate (L/min) (L/min) 2 Oxygen Delivery Method Nasal Cannula Pulse Ox (%) 94 Pulse Rate (60-100 beats/min) 101 H 6th minute Oxygen Flow Rate (L/min) (L/min) 2 Oxygen Delivery Method Nasal Cannula Pulse Ox (%) 94 Pulse Rate (60-100 beats/min) 102 H Dyspnea [place]ot Scale (0-10) 2 Exertion [place] Scale (6-20) 14 Post-test Oxygen Flow Rate (L/min) (L/min) 2 Oxygen Delivery Method Nasal Cannula Pulse Ox (%) 97 Pulse Rate (60-100 beats/min) 84 Full Laps Walked 12 Partial Lap, Number of Tiles Walked 10 Total Distance Walked (ft) 118 07/25/20 08:42 Cardiopulmonary Services by Mary Beth De La Garza Patient states that she wears 3-4 lpm at home almost all day. Patient was not on oxygen in the waiting room and walked down to testing room. After sitting and talking, SpO2 92% on room air, so we started testing without O2. At second minute SpO2 88%, stopped patient and placed on 2 lpm O2. Patient recovered quickly to 95% and began walking the rest of the test without breaks. Initialized on 07/25/20 08:42 - END OF NOTE - Interpretation Interpretation: The patient ambulated 718 feet over the course of 6 minutes beginning on room air without assistive devices or breaks. Pretesting oxygen saturation was noted to be 92% on room air. With ambulation, the matt oxygen saturation was 88%. 2 L/min of supplemental oxygen was applied, and the patient was able to complete the remainder of the test while maintaining appropriate oxygen saturations. - Recommendations Recommendations: 2 L/min of supplemental oxygen should be utilized with exertion.
== END ==
PROVIDERS: PCP Family Medicine; Visit Provider Internal Medicine Critical Care Medicine
DX: J96.11 Chronic respiratory failure with hypoxia (principal)
CPT/HCPCS: 94618

== ENCOUNTER → 2020-07-31 10:35 | Outpatient (CLI) | payer MEDICARE, SELFPAY ==
[2020-07-15 13:19] VITALS: BMI 31.6
--- NOTE | 2020-07-31 14:34 | PFTCOMP_ITS ---
COMPLETE PULMONARY FUNCTION TEST INTERPRETATION Brief HPI: Patient is a 69 year old female, currently under the care of myself, who presents to [facility] for complete pulmonary function tests secondary to diagnosis of COPD. Respiratory therapist reports good effort and reproducible results. Interpretation: Forced expiration spirometry shows a mild large airways obstructive ventilatory defect with an FEV1 of 76% predicted. There is no significant bronchodilator response by strict ATS criteria. Spirograms are of good quality and plateau slowly, indicating slowly emptying areas of the lungs. The respiratory flow volume loop shows decreased expiratory flow rates at high lung volumes consistent with small airways obstruction. Lung volumes by body plethysmography show a normal total lung capacity at 4.47 L, 101% predicted. All other lung volumes are within normal limits. Diffusion capacity by carbon monoxide is decreased at 44% predicted. The airway resistance is normal. No previous pulmonary function tests were available for review. Impression: Irreversible mild large airways obstructive ventilatory defect with a disproportionate reduction in diffusion capacity
== END ==
PROVIDERS: PCP Family Medicine; Referring Provider Internal Medicine Critical Care Medicine; Visit Provider Internal Medicine Critical Care Medicine
DX: J44.9 Chronic obstructive pulmonary disease, unspecified (principal)
CPT/HCPCS: 94060; 94726; 94729

== ENCOUNTER 2020-08-08 09:00 | Outpatient (RCR) | payer MEDICARE, SELFPAY ==
[2020-07-15 13:19] VITALS: BMI 31.6
--- NOTE | 2020-08-08 10:08 | BH.SGPN.GN ---
Behaviors/Verbalizations/Mental Status: [] Client alert and oriented, casually dressed and groomed. Eye contact good. Motor activity appropriate. Speech within normal limits. Affect constricted, mood anxious and depressed. Thoughts linear, logical, no signs of hallucinations or delusions. Client Response/Progress/Benefit: [] Client first day in group. Receptive to session, semi-passive participant but remained engaged AEB listening, providing some input, and taking notes throughout. Appeared to connect with topic and attentive the group brainstormed the positive and negative aspects of stress on physical and mental health. Client noted connecting with symptoms fellow participants reported experiencing as a result of stress. Client willing to complete stress jar activity and identified current stressors as: decline in physical health, decline in mobility and functioning, difficulties completing daily tasks, feeling like a burden, and fear of the unknown. Progress is unable to be determined due to it being client first day. Recommended to continue with IOP tx to improve skill application, further reduce symptomology, and prevent decompensation. Narrative Note: []
--- NOTE | 2020-08-08 11:12 | BH.SGPN.GN ---
Behaviors/Verbalizations/Mental Status: []Client alert and oriented, casually dressed and groomed. Eye contact fair. Motor activity restless (likely due to Parkinson's) . Speech within normal limits. Affect congruent, mood anxious. Thoughts linear, logical, no signs of hallucinations or delusions. Client Response/Progress/Benefit: []Client engaged in session AEB listening attentively to others, providing input, and taking notes throughout. Client remained attentive during discussion about the 4 A's of managing stress and discussed connecting with the various benefits of each. Client stated she wants to work on avoiding unnecessary stressors. Client stated she has identified the unnecessary stressors currently in her jar and now wants to develop a framework on how to deal with each stressor. Client seemed to benefit from increased awareness of the impact of stress on mental health and increasing repertoire of stress management strategies. Client is to continue IOP level of care to continue focusing on increase self-care, challenge distorted thoughts and prevent decompensation.
--- NOTE | 2020-08-08 15:08 | BH.COMM_ITS ---
Communication Note - Communication with Client Communication Note: Met with pt to complete initial paperwork. No changes since pre-admission screening. Completed [place] Suicide Screening with low risk. Endorses ?sadness? within the last month, but denies any passive thoughts of , SI, plan, or intent in the last month. Does not have a history of SI in her lifetime. Denies any history of intent, plans, or attempts in her lifetime. Does not have access to weapons. Does not present as imminent danger to herself due to no active SI, plan, intent, or hx of attempts. Future-oriented.
--- NOTE | 2020-08-09 14:04 | BH.DS ---
Discharge Summary - Demographics Date of Admission:: 08/08/20 Discharge Date: 08/15/20 Presenting Problems at Admission:: The patient is a 69-year-old, , female who was referred to IOP program by her crematory attendant due to increased depressive and anxious sx following recent decline in physical health. She reports ?everything went downhill? following her fdc after working almost 20 years at a [employer]. Client noted that at that time her health began declining and she was diagnosed with COVID-19. This increased client?s isolation and reduced her lung capacity which greatly impacted ability to complete ADL?s. Reports previously taking long walks with her dog but is now unable to walk more than a few feet before becoming winded. Additionally, client was recently told she likely has Parkinson?s Disease. Noted her new health issues have become overwhelming and she often struggles with ruminating and anxious thoughts related to her health. Endorses sx of: guilt, feeling hopeless/helpless, worry and increased rumination, isolation, and depression. Client has limited supports and reports that current sx are impacting her socially, emotionally, and occupationally. 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 Pt reported ambivalence to tx upon initial admission and noted doing the program at the request of her doctor, therefore commitment to tx was questionable. Only attended 1 days of IOP. Did not show for schedule psychiatry appointment. Client was not connected with outpatient counseling or psychiatry due to recently starting IOP program. Attempts to contact pt with referral information were made, however unable to do so. - Treatment Progress During Treatment & Response: No progress noted as pt was only in IOP program for 1 day. Issues Still to be Addressed:: anxiety, depression, feelings of guilt, distorted thoughts, and isolation Discharge Recommendations/Instructions:: Pt is not currently linked with outpatient counseling or psychiatry and is encouraged to follow-up with this therapist to receive information for ongoing counseling and medication management. Recommended to follow-up with her outpatient health providers. Discharge Handout: Complete Discharge Handout with client on aftercare options and continuity of care.
== END 2020-08-09 14:00 | disposition home or self-care (01) ==
LOC: BHIOP 09:00
PROVIDERS: PCP Family Medicine; Referring Provider Psychiatry & Neurology Psychiatry; Visit Provider Psychiatry & Neurology Psychiatry
DX: F41.1 Generalized anxiety disorder (principal); F32.1 Major depressive disorder, single episode, moderate
CPT/HCPCS: H0035; 90853

== ENCOUNTER → 2020-09-09 13:37 | Outpatient (CLI) | payer MEDICARE, SELFPAY ==
[2020-08-13 11:15] VITALS: BMI 31.1
[2020-09-09 15:06] LABS: Hematocrit 39.8 % (37-47); Mean Corp Hgb Conc 32.7 g/dL (32-36); Mean Corpuscular Hgb 31.5 pg (27.0-32.0); Mean Corpuscular Volume 96.4 fL (81-99); Mean Platelet Vol. 10.8 fl (6.2-12.0); POSITIVE COUNT YES; POSITIVE DIFFERENTIAL YES; POSITIVE MORPHOLOGY YES; Platelet Count 263 K/mm3 (150-450); Red Blood Count 4.13 M/mm3 (4.2-5.4); White Blood Count 7.9 K/mm3 (4.4-11.0)
[2020-09-09 15:07] LABS: Differential Indicated MANUAL DIFF
[2020-09-09 15:27] LABS: ALB/GLOB Ratio 1.3 RATIO (0.9-2.4); AST(SGOT) 18 U/L (15-37); Alanine Aminotransfer ALT/SGPT 47 U/L (13-56); Albumin, Serum 4.1 g/dL (3.2-5.0); Alkaline Phosphatase 87 U/L (45-117); Anion Gap 5 (5-15); BUN 11 mg/dL (7-18); BUN/Creat Ratio 16.3 RATIO (10-20); Calcium,Total 9.4 mg/dL (8.5-10.1); Chloride 109 mmol/L (98-107); Creatinine, Serum 0.68 mg/dL (0.55-1.02); EST Glomerular Filtration Rate 92 mL/min (>60); Est Glom Filt Rate - Afr Amer 111 mL/min (>60); Globulin 3.2 g/dL (2.2-4.2); Glucose 76 mg/dL (74-106); Potassium 4.4 mmol/L (3.5-5.1); Protein, Total 7.3 g/dL (6.4-8.2); Sodium Level 142 mmol/L (136-145)
[2020-09-09 15:30] LABS: Eosinophil 3 % (0-5); Lymphocyte 34 % (19-41); Metamyelocyte 1 % (0-1); Monocyte 17 % (0-10); Myelocyte 1 % (0-0); Neutrophil-Band 6 % (0-5); Neutrophil-Segmented 38 % (47-70); Total Cells Counted 100 (MANUAL DIFF)
[2020-09-09 15:32] LABS: Absolute Lymphocyte Count 2.69 X10^3/uL (0.83-4.51); Absolute Neutrophil Count 3.5 X10^3/uL (2.0-7.7); Reactive Lymphocyte 2+
[2020-09-09 15:33] LABS: Platelet Estimate ADEQUATE (ADEQ); Platelet Morphology LARGE; Red Cell Morphology NORM C+C NORMAL (NORM C&C)
[2020-09-10 11:37] LABS: Pathologist Review Reviewed
== END ==
PROVIDERS: PCP Family Medicine; Referring Provider Psychiatry & Neurology Neurology; Visit Provider Psychiatry & Neurology Neurology
DX: R25.1 Tremor, unspecified (principal)
CPT/HCPCS: 36415; 80053; 85025

== ENCOUNTER → 2021-01-20 12:10 | Outpatient (CLI) | payer MEDICARE, SELFPAY ==
[2020-08-13 11:15] VITALS: BMI 31.1
[2020-09-12 10:44] VITALS: BMI 30.9
[2021-01-20 12:51] VITALS: PULSE 103; PULSE 104; PULSE 107; PULSE 112; PULSE 113; PULSE 83; PULSE 85; O2SAT 88; O2SAT 91; O2SAT 93; O2SAT 94; O2SAT 97
--- NOTE | 2021-01-20 12:53 | CPS ---
Patient came in with own tank. She wears 2 lpm O2 at home, has it on 2 lpm pulse dose. Room air reading for 10 minutes, SpO2 94%. Started test on room air. Patient walked for 2 minutes before dropping to 88%, placed patient back on portable tank of 2 lpm O2 pulse dose.
--- NOTE | 2021-01-21 08:11 | PCM.PSN.6M ---
PSN 6 Minute Walk Test 6 Minute Walk Test 6 Minute Walk Test: 6 Minute Walk Test PSN:6-Minute Walk Test Start: 01/20/21 12:50 Freq: Status: Active Protocol: [id number] Document 01/20/21 12:51 CRISTOPHER (Rec: 01/20/21 12:56 [email or web address] [email or web address]) 6 Minute Walk Test Date Performed 01/20/21 Time Performed 12:30 Height 5 ft 2 in Weight: 77.111 kg Weight in Pounds 170.[address]: Gloria Bahena H[employer]ITAL[employer] SERVICES MANAGER Assistive device used: None Pre-test Oxygen Delivery Method Room Air Pulse Ox (%) 94 Pulse Rate (60-100 beats/min) 85 Dyspnea Hiwot Scale (0-10) 0 Exertion Hiwot Scale (6-20) 6 1st minute Oxygen Delivery Method Room Air Pulse Ox (%) 91 Pulse Rate (60-100 beats/min) 113 H 2nd minute Oxygen Delivery Method Room Air Pulse Ox (%) 88 Pulse Rate (60-100 beats/min) 104 H 3rd minute Oxygen Flow Rate (L/min) (L/min) 2 Oxygen Delivery Method Nasal Cannula Pulse Ox (%) 94 Pulse Rate (60-100 beats/min) 103 H 4th minute Oxygen Flow Rate (L/min) (L/min) 2 Oxygen Delivery Method Nasal Cannula Pulse Ox (%) 94 Pulse Rate (60-100 beats/min) 104 H 5th minute Oxygen Flow Rate (L/min) (L/min) 2 Oxygen Delivery Method Nasal Cannula Pulse Ox (%) 93 Pulse Rate (60-100 beats/min) 107 H 6th minute Oxygen Flow Rate (L/min) (L/min) 2 Oxygen Delivery Method Nasal Cannula Pulse Ox (%) 93 Pulse Rate (60-100 beats/min) 112 H Dyspnea Hiwot Scale (0-10) 3 Exertion Hiwot Scale (6-20) 14 Post-test Oxygen Flow Rate (L/min) (L/min) 2 Oxygen Delivery Method Nasal Cannula Pulse Ox (%) 97 Pulse Rate (60-100 beats/min) 83 Full Laps Walked 14 Partial Lap, Number of Tiles Walked 40 Total Distance Walked (ft) 866 01/20/21 12:53 Cardiopulmonary Services by Mary Beth De La Garza Patient came in with own tank. She wears 2 lpm O2 at home, has it on 2 lpm pulse dose. Room air reading for 10 minutes, SpO2 94%. Started test on room air. Patient walked for 2 minutes before dropping to 88%, placed patient back on portable tank of 2 lpm O2 pulse dose. Initialized on 01/20/21 12:53 - END OF NOTE Interpretation Interpretation: The patient ambulated 866 feet over the course of 6 minutes beginning on room air without assistive devices. Pretesting oxygen saturation was noted to be 94% on room air. With ambulation, the matt oxygen saturation was 88% at minute 2 of testing. 2 L/min of pulse dose oxygen was applied and the patient was able to complete the remainder of the test while maintaining appropriate oxygen saturations. Recommendations Recommendations: 2 L/min of pulse dose supplemental oxygen should be utilized with exertion.
== END ==
LOC: PSN 12:11
PROVIDERS: PCP Family Medicine; Visit Provider Nurse Practitioner Acute Care
DX: J44.9 Chronic obstructive pulmonary disease, unspecified (principal)
CPT/HCPCS: 94618

== ENCOUNTER → 2021-02-12 15:09 | Outpatient (CLI) | payer MEDICARE, SELFPAY ==
[2021-02-14 17:28] LABS: t-Transglutaminase IgA <2 U/mL (0-3)
== END ==
PROVIDERS: PCP Family Medicine
DX: K52.9 Noninfective gastroenteritis and colitis, unspecified (principal)
CPT/HCPCS: 36415; 83516

== ENCOUNTER 2021-09-12 22:47 | Outpatient (CLI) | payer MEDICARE, SELFPAY | END 2021-09-12 23:59 | disposition home or self-care (01) | LOC: SL 22:47 | PROVIDERS: PCP Family Medicine; Visit Provider Nurse Practitioner Acute Care | DX: G47.33 Obstructive sleep apnea (adult) (pediatric) (principal) | CPT/HCPCS: 95810 ==

== ENCOUNTER 2022-01-22 14:12 | Emergency (ER) | payer MEDICARE, SELFPAY ==
[2022-01-22 14:13] VITALS: BP 117/75; PULSE 78; RESP 16; TEMP 36.4; O2SAT 98; BMI 29.2
[2022-01-22 14:15] VITALS: BP 117/75; PULSE 78; RESP 16; TEMP 36.4; O2SAT 98
--- NOTE | 2022-01-22 14:45 | EDS_ITS ---
HPI History of Present Illness Chief Complaint: Weakness Detail of Chief Complaint: Generalized weakness, thirst, dry mouth and diarrhea Informant: patient Onset/Context/Timing Onset: Weeks (1.5 weeks) Context: Sudden Onset Timing: Intermittent Quality: Watery diarrhea x1.5 weeks Location: GI Current Severity: Moderate Maximum Severity: Moderate Worsened by: Nothing Relieved by: Nothing, patient has taken Imodium liquid with no improvement Associated Symptoms Associated Symptoms: Dry mouth, thirst and occasional lightheadedness Narrative Narrative: Patient is a 71-year-old woman with history of COPD on home oxygen who presents because of diarrhea for 1.5 weeks. She states she is having 4 loose watery stools a day. Denies blood or mucus. She denies history of inflammatory bowel disorder. She has not taken any antibiotic in the past month. She lives with her disabled . He has no diarrhea. She denies documented fever. She do es endorse dry mouth, thirst and occasional lightheadedness with standing rapidly. She also endorses decreased urine output Prior similar symptoms: No Recent Illness/Hospitalization: [facility] Medical History (Updated 01/22/22 @ 16:[address] Nilesh George MD) Acute respiratory failure with hypoxia COPD (chronic obstructive pulmonary disease) COPD exacerbation History of Parkinson's disease Pneumonia due to COVID-19 virus Home Medications apixaban 5 mg tablet 5 mg PO BID 03/19/19 [History Last Taken Unknown] atorvastatin 40 mg tablet 40 mg PO QHS 03/19/19 [History Last Taken Unknown] sertraline 100 mg tablet 100 mg PO DAILY 03/19/19 [History Last Taken Unknown] acetaminophen 325 mg tablet 650 mg PO Q6H PRN PRN Pain Score 1-10/Temp > 100.7 F 05/11/20 [Rx Last Taken Unknown] ipratropium 0.5 mg-albuterol 3 mg (2.5 mg base)/3 mL nebulization soln 3 ml inhalation Q6H PRN shortness of breath or wheezing #180 mL 02/13/21 [Rx Last Taken Unknown] alprazolam 0.5 mg tablet 0.5 mg PO BID 08/14/21 [History Last Taken Unknown] ibuprofen 600 mg tablet 600 mg PO Q8H PRN Pain 08/14/21 [History Last Taken Unknown] budesonide 1 mg/2 mL suspension for nebulization 1 mg (2 mL) inhalation BID #60 mL 11/28/21 [Rx Last Taken Unknown] primidone 50 mg tablet 100 mg PO BID 11/28/21 [History Last Taken Unknown] Allergy/AdvReac Type Severity Reaction Status Date / Time No Known Allergies Allergy Verified 11/28/21 09:08 Family History Other No pertinent family history Surgical History History of bladder surgery History of hysterectomy Social History (Updated 01/22/22 @ 14:[address] Nilesh George MD) household members: spouse Smoking Status: Current every day smoker tobacco type: cigarettes substance use type: does not use ROS ROS ED Constitutional Constitutional ED: Denies chills, fever(s), subjective, sweats or weight loss Eyes Eyes: Denies blurry vision, change in vision or diplopia ENT ENT ED: Reports other Details: Dry mouth ; Denies ear pain, rhinorrhea or sore throat Cardiovascular Cardiovascular: Denies chest pain or palpitations Respiratory/Chest Respiratory/Chest: Denies cough, dyspnea or dyspnea on exertion Gastrointestinal Gastrointestinal: Reports abdominal pain and diarrhea; Denies constipation, melena, nausea or vomiting Genitourinary Genitourinary ED: Reports other Details: Decreased urine output ; Denies dysuria, hematuria or urinary frequency Musculoskeletal Musculoskeletal: Denies arthralgias Integumentary Denies abscess or Abrasions Neurologic Neurologic: Reports weakness; Denies headache(s) or paresthesias Psychiatric Psychiatric: Reports anxiety Endocrine Endocrinology: Denies cold intolerance or heat intolerance Hematologic/Lymphatic Hematologic/Lymphatic: Denies easy bleeding or easy bruising EXAM Physical Exam Const Vital Signs: 01/22/22 14:13 01/22/22 14:15 01/22/22 14:40 Temperature 97.5 F L 97.5 F L Temperature Source Temporal Temporal Pulse Rate 78 78 Respiratory Rate 16 16 Respiratory Effort Normal Non-Labored Respiratory Pattern Normal Blood Pressure 117/75 117/75 Blood Pressure Mean 89 89 Pulse Ox 98 98 Oxygen Delivery Method Nasal Cannula Nasal Cannula Oxygen Flow Rate (L/min) 2 01/22/22 16:13 Temperature Temperature Source Pulse Rate 61 Respiratory Rate 16 Respiratory Effort Respiratory Pattern Blood Pressure 113/68 Blood Pressure Mean 83 Pulse Ox 98 Oxygen Delivery Method Room Air Oxygen Flow Rate (L/min) Positive well nourished and well developed; Negative for contractures or unkempt Constitutional Narrative: Patient does not look well. She appears in no distress. General Appearance ED: well developed and NAD; Negative for unkempt, contractures, cyanotic or diaphoretic HEENT Reports TM's clear and dry mucous membranes HEENT Narrative: Uvula is midline. There is no deviation of tongue or protrusion. Negative for trauma or tenderness Tympanic Membrane ED: Yes TM's clear Mouth ED: Yes dry mucous membranes Mouth: dry mucous membranes Eyes PERRL and EOMs intact bilaterally General Eye ED: Negative for pale conjunctiva or scleral icterus Neck no lymphadenopathy, supple and no JVD Chest Wall inspection of chest normal and palpation of chest normal Resp normal respiratory effort and clear to auscultation bilaterally Cardio regular rate, regular rhythm, S1 normal heart sound, S2 normal heart sound and no murmurs GI normal to inspection, nondistended, normoactive bowel sounds, non-tender and non-distended; Negative for hepatosplenomegaly Back/Spine no CVA tenderness Neuro oriented x3, CN's II-XII intact bilaterally and no sensory deficits noted Sensorium / Orientation: alert Motor Exam: strength 5/5 throughout Psych mental status grossly normal Appearance: Negative for unkempt Skin no rashes or lesions noted and no wounds MDM MDM MDM Narrative Medical decision making narrative: With diarrhea for 1.5 weeks and no improvement with Imodium will obtain basic metabolic panel to assess renal function, CO2/anion gap and evaluate for hypokalemia. CBC to assess white count differential. IV fluids were were ordered since patient clinically is dehydrated. Lab Data Attestation: I reviewed the patient's lab results. Lab results narrative: White count and differential are unremarkable. Renal function is normal. CO2 and potassium are normal. Plan is to refer to GI. Labs: Laboratory Results - last 24 hr 01/22/22 01/22/22 14:45 14:45 WBC 9.6 RBC 3.66 L Hgb 11.7 L Hct 33.4 L MCV 91.3 MCH 32.0 MCHC 35.0 RDW Std Deviation 47.8 H RDW Coeff of Corrina 14.3 Plt Count 143 L MPV 11.3 Immature Gran % (Auto) 2.100 H Neut % (Auto) 51.8 Lymph % (Auto) 19.5 Surry % (Auto) 26.3 H Eos % (Auto) 0.2 Baso % (Auto) 0.1 Absolute Neuts (auto) 5.0 Absolute Lymphs (auto) 1.87 Nucleated RBC % 0 Differential Comment SCANNED Sodium 141 Potassium 3.9 Chloride 114 H Carbon Dioxide 21.0 Anion Gap 6 BUN 14 Creatinine 0.69 Estim Creat Clear Calc 40.81 Est GFR (MDRD) Af Amer 108 Est GFR (MDRD) Non-Af 90 BUN/Creatinine Ratio 20.4 H Glucose 85 Calcium 8.6 Discharge Plan Triage Chief Complaint: Weakness ED Provider: Nilesh George Dx/Rx/DC Orders Clinical Impression: Diarrhea, Dehydration, mild Instructions: ED Diarrhea, Unknown Cause Prescriptions: No Action ipratropium-albuterol 0.5 mg-3 mg(2.5 mg base)/3 mL solution for nebulization 3 ml inhalation Q6H PRN (Reason: shortness of breath or wheezing) Qty: 180 6RF ibuprofen 600 mg tablet 600 mg PO Q8H PRN (Reason: Pain) alprazolam 0.5 mg tablet 0.5 mg PO BID Label Comments: TAKE 1 TABLET BY MOUTH 2 TIMES DAILY NEEDED FOR ANXIETY FOR UP TO 30 DAYS. primidone 50 mg tablet 100 mg PO BID budesonide 1 mg/2 mL suspension for nebulization 1 mg inhalation BID Qty: 60 6RF atorvastatin 40 MG tablet 40 mg PO QHS apixaban 5 MG tablet 5 mg PO BID Label Comments: TAKE ONE TABLET BY MOUTH TWICE DAILY sertraline 100 MG tablet 100 mg PO DAILY Label Comments: TAKE ONE TABLET BY MOUTH EVERY DAY acetaminophen 325 MG tablet 650 mg PO Q6H PRN PRN (Reason: Pain Score 1-10/Temp > 100.7 F) 0RF Primary Care Provider: Gelacio Horta Referrals: Gelacio Horta MD [Primary Care Provider] - Tr Eddy DO [Med Staff - Active Staff] - 1-2 Weeks Activity Restrictions/Additional Instructions: Called Dr. Eddy's office this evening or tomorrow for follow-up appointment Disposition Disposition: Home, Self Care
[2022-01-22 14:59] LABS: Absolute Lymphocyte Count 1.87 X10^3/uL (0.83-4.51); Basophil# 0.01 X10^3/uL; Basophil% 0.1 % (0-1); Eosinophil# 0.02 X10^3/uL; Eosinophils% 0.2 % (0-5); Hematocrit 33.4 % (37-47); Hemoglobin 11.7 g/dL (12.0-15.0); Lymphocyte # 1.87 X10^3/ul (0.83-4.51); Lymphocyte % 19.5 % (19-41); Mean Corpuscular Volume 91.3 fL (81-99); Mean Platelet Vol. 11.3 fl (6.2-12.0); Monocyte# 2.52 X10^3/uL; Monocyte% 26.3 % (0-10); NRBC Flagged by Analyzer 0 % (0-5); Neutrophil # 4.98 X10^3/uL (2.7-7.7); Neutrophil % 51.8 % (47-70); POSITIVE DIFFERENTIAL YES; Platelet Count 143 K/mm3 (150-450); RBC Distribution Width CV 14.3 % (11.6-14.6); RBC Distribution Width SD 47.8 fl (35.1-43.9); Red Blood Count 3.66 M/mm3 (4.2-5.4); White Blood Count 9.6 K/mm3 (4.4-11.0)
[2022-01-22 15:13] LABS: Differential Indicated SCAN CRITERIA MET
[2022-01-22 15:23] LABS: Anion Gap 6 (5-15); BUN 14 mg/dL (7-18); BUN/Creat Ratio 20.4 RATIO (10-20); Calcium,Total 8.6 mg/dL (8.5-10.1); Chloride 114 mmol/L (98-107); Creatinine, Serum 0.69 mg/dL (0.55-1.02); EST Glomerular Filtration Rate 90 mL/min (>60); Est Glom Filt Rate - Afr Amer 108 mL/min (>60); Estimated Creatinine Clearance 40.81 ml/min; Glucose 85 mg/dL (74-106); Potassium 3.9 mmol/L (3.5-5.1); Sodium Level 141 mmol/L (136-145)
[2022-01-22 15:35] LABS: Differential Comment SCANNED
[2022-01-22 16:13] VITALS: BP 113/68; PULSE 61; RESP 16; O2SAT 98
[2022-01-22 17:05] VITALS: BP 119/71; PULSE 76; RESP 17; O2SAT 97
== END 2022-01-22 17:07 | disposition home or self-care (01) ==
PROVIDERS: Emergency Provider Emergency Medicine; PCP Family Medicine; Visit Provider Emergency Medicine
DX: E86.0 Dehydration (principal); J44.9 Chronic obstructive pulmonary disease, unspecified; R19.7 Diarrhea, unspecified; F17.210 Nicotine dependence, cigarettes, uncomplicated; Z99.81 Dependence on supplemental oxygen
CPT/HCPCS: 80048; 85025; 96360; 96361; 99282; J7040

== ENCOUNTER → 2022-06-03 | Outpatient (CLI) | payer MEDICARE, SELFPAY ==
--- NOTE | 2022-06-03 13:42 | PFTCOMP_ITS ---
COMPLETE PULMONARY FUNCTION TEST INTERPRETATION Brief HPI: Patient is a 71-year-old female, currently under the care of Gloria Bahena, who presents to [facility] for complete pulmonary function tests secondary to diagnosis of COPD. Respiratory therapist reports good effort and reproducible results. Interpretation: Forced expiration spirometry shows no large airways obstructive ventilatory defect with an FEV1 of 82% predicted. There is no significant bronchodilator response by strict ATS criteria. Spirograms are of fair quality on prebronchodilator, likely underestimating FVC. The respiratory flow volume loop shows decreased expiratory flow rates at high lung volumes consistent with small airways obstruction. Lung volumes by body plethysmography show a normal total lung capacity at 4.54 L, 103% predicted. All other lung volumes are within normal limits. Diffusion capacity by carbon monoxide is normal at 70% predicted. The airway resistance is slightly elevated. Compared to previous pulmonary function tests from 07/31/2020, there is been a significant improvement in DLCO by 52%. Impression: Grossly normal pulmonary function test with significant improvement compared to 2020
== END | disposition home or self-care (01) ==
LOC: PSN 09:14
PROVIDERS: PCP Family Medicine; Referring Provider Nurse Practitioner Acute Care; Visit Provider Nurse Practitioner Acute Care
DX: J44.9 Chronic obstructive pulmonary disease, unspecified (principal)
CPT/HCPCS: 94060; 94726; 94729

== ENCOUNTER → 2022-06-20 | Outpatient (CLI) | payer MEDICARE, SELFPAY ==
--- NOTE | 2022-06-20 07:48 | CT_ITS ---
STUDY: LOW DOSE CT LUNG CANCER SCREENING REASON FOR EXAM: Female, 71 years old. smoker and gt; 30 pack yeas RADIATION DOSAGE (If Supplied By Facility): CTDIvol = ( 3.02 ) mGy, DLP = ( 94.02 ) mGycm TECHNIQUE: No contrast was administered. Low dose technique was utilized (average mAS-38 and kVp 120). 1.25 mm axial source images with a slice interval of 1.25-mm were reconstructed in lung windows. 2.5 mm axial source images with a slice interval of 2.5-mm were reconstructed in lung windows. 5.0 mm axial source images with a slice interval of 5.0-mm were reconstructed in soft tissue windows. COMPARISON: May 03, 2020 FINDINGS: Lungs are moderately emphysematous with peripheral minimal scars. There are no pulmonary nodules or regional opacities. Pleural surfaces are intact. There is high volume of calcified coronary artery plaque. Aorta and pulmonary artery are normal caliber. Noncontrast mediastinum is normal but suboptimally evaluated. Skeleton is intact.. CT/Low Dose CT Lung Screening IMPRESSION: 1. Lung RADS category 1. 2. Moderate emphysema. 3. Moderate to severe coronary artery disease. IMPORTANT NOTES FOR USE: ACR Lung-RADS Version 1.1 Assessment Categories Release Date: 2018 Category: Coded 0-4 bases on nodule(s) with highest degree of suspicion. Negative screen is defined as categories 1 and 2; a positive screen is defined as categories 3 and 4. Category 3 and 4A nodules that are unchanged on interval CT should be coded as category 2, and individuals returned to screening in 12 months. Category 4X: Category 3 or 4 nodules with additional imaging findings that increase the suspicion of lung cancer, such as spiculation, GGN that doubles in size in 1 year, enlarged lymph notes, etc. Category Modifiers: S (significant finding unrelated to lung cancer) Electronically Signed: Audrey Warner MD at 12:23 EST ,
== END | disposition home or self-care (01) ==
LOC: CT 07:48
PROVIDERS: PCP Family Medicine; Referring Provider Nurse Practitioner Acute Care; Visit Provider Nurse Practitioner Acute Care
DX: Z87.891 Personal history of nicotine dependence (principal)
CPT/HCPCS: 71271

== ENCOUNTER 2022-07-21 11:16 | Emergency (ER) | payer MEDICARE, SELFPAY ==
[2022-07-21 11:17] VITALS: BP 117/80; PULSE 90; RESP 20; TEMP 36.8; O2SAT 100; BMI 28.8
--- NOTE | 2022-07-21 12:25 | RAD_ITS ---
STUDY: X-RAY CHEST REASON FOR EXAM: Female, 71 years old. sob TECHNIQUE: Single AP portable view of the chest. COMPARISON: Comparison is made with prior study of 07/08/2020. FINDINGS: Hyperinflation. There is no demonstrated pleural abnormality. Normal size heart. Normal mediastinum and niki. Normal visualized pulmonary arteries. There is atherosclerotic calcification of the aortic arch with tortuosity. There is a mild levoscoliosis of the thoracic spine. Normal visualized ribs, clavicles, and shoulders. There is no demonstrated abnormality of the visualized soft tissue structures of the upper abdomen. RAD/Chest 1 View (Portable) IMPRESSION: Hyperinflation. The lungs are clear. Electronically Signed: Mitch Merida MD at 13:03 EST ,
[2022-07-21 13:03] LABS: Absolute Lymphocyte Count 1.02 X10^3/uL (0.83-4.51); Absolute Neutrophil Count 2.7 X10^3/uL (2.0-7.7); Basophil# 0.01 X10^3/uL; Basophil% 0.2 % (0-1); Eosinophil# 0.02 X10^3/uL; Eosinophils% 0.3 % (0-5); Hematocrit 37.7 % (37-47); Hemoglobin 12.5 g/dL (12.0-15.0); Lymphocyte # 1.02 X10^3/ul (0.83-4.51); Lymphocyte % 15.5 % (19-41); Mean Corp Hgb Conc 33.2 g/dL (32-36); Mean Corpuscular Hgb 31.3 pg (27.0-32.0); Mean Corpuscular Volume 94.5 fL (81-99); Mean Platelet Vol. 12.2 fl (6.2-12.0); Monocyte% 38.1 % (0-10); NRBC Flagged by Analyzer 0 % (0-5); Neutrophil # 2.72 X10^3/uL (2.7-7.7); Neutrophil % 41.3 % (47-70); POSITIVE DIFFERENTIAL YES; Platelet Count 103 K/mm3 (150-450); RBC Distribution Width CV 14.7 % (11.6-14.6); RBC Distribution Width SD 51.5 fl (35.1-43.9); Red Blood Count 3.99 M/mm3 (4.2-5.4); White Blood Count 6.6 K/mm3 (4.4-11.0)
[2022-07-21 13:05] LABS: Differential Indicated SCAN CRITERIA MET
[2022-07-21 13:28] LABS: Anion Gap 7 (5-15); BUN 16 mg/dL (7-18); BUN/Creat Ratio 22.3 RATIO (10-20); Calcium,Total 9.6 mg/dL (8.5-10.1); Chloride 110 mmol/L (98-107); Creatinine, Serum 0.72 mg/dL (0.55-1.02); EST Glomerular Filtration Rate 85 mL/min (>60); Est Glom Filt Rate - Afr Amer 103 mL/min (>60); Estimated Creatinine Clearance 40.81 ml/min; Glucose 107 mg/dL (74-106); Potassium 4.3 mmol/L (3.5-5.1); Sodium Level 140 mmol/L (136-145)
[2022-07-21 13:33] LABS: Differential Comment SCANNED
[2022-07-21 15:11] VITALS: BP 98/56; PULSE 82; RESP 16; RESP 18; TEMP 38.4; O2SAT 98
--- NOTE | 2022-07-21 15:52 | EDS_ITS ---
HPI History of Present Illness Chief Complaint: Shortness of Breath Narrative Narrative: 71-year-old female presented with shortness of breath, fever, chills, body aches for the last 4-5 patient is not having any nausea or vomiting. She does admit to some increase decreased p.o. intake but she does not feel like eating. No chest pain. Patient with a history of COPD and is on 2 to 3 L of oxygen at baseline. She is not requiring any more than this. [facility] Medical History Acute respiratory failure with hypoxia COPD (chronic obstructive pulmonary disease) COPD exacerbation History of Parkinson's disease Pneumonia due to COVID-19 virus Home Medications apixaban 5 mg tablet 5 mg PO BID 03/19/19 [History Last Taken Unknown] atorvastatin 40 mg tablet 40 mg PO QHS 03/19/19 [History Last Taken Unknown] sertraline 100 mg tablet 100 mg PO DAILY 03/19/19 [History Last Taken Unknown] acetaminophen 325 mg tablet 650 mg PO Q6H PRN PRN Pain Score 1-10/Temp > 100.7 F 05/11/20 [Rx Last Taken Unknown] ipratropium 0.5 mg-albuterol 3 mg (2.5 mg base)/3 mL nebulization soln 3 ml inhalation Q6H PRN shortness of breath or wheezing #180 mL 02/13/21 [Rx Last Taken Unknown] alprazolam 0.5 mg tablet 0.5 mg PO BID 08/14/21 [History Last Taken Unknown] ibuprofen 600 mg tablet 600 mg PO Q8H PRN Pain 08/14/21 [History Last Taken Unknown] budesonide 1 mg/2 mL suspension for nebulization 1 mg (2 mL) inhalation BID #60 mL 11/28/21 [Rx Last Taken Unknown] primidone 50 mg tablet 100 mg PO BID 11/28/21 [History Last Taken Unknown] azithromycin 250 mg tablet See Rx Instructions PO .COMPLEX #6 tabs 05/01/22 [Rx Last Taken Unknown] prednisone 20 mg tablet 60 mg PO QDAY #15 tabs 05/01/22 [Rx Last Taken Unknown] ondansetron 4 mg disintegrating tablet 4 mg PO Q8H PRN PRN Nausea #14 tabs 07/21/22 [Rx Last Taken Unknown] Allergy/AdvReac Type Severity Reaction Status Date / Time No Known Allergies Allergy Verified 07/21/22 11:19 Family History Other No pertinent family history Surgical History History of bladder surgery History of hysterectomy Social History household members: spouse Smoking Status: Former smoker substance use type: does not use ROS ROS ED Constitutional Constitutional ED: Reports chills and fever(s) Eyes Eyes: Denies change in vision or diplopia ENT ENT ED: Denies rhinorrhea or sore throat Cardiovascular Cardiovascular: Denies chest pain or palpitations Respiratory/Chest Respiratory/Chest: Reports cough and dyspnea Gastrointestinal Gastrointestinal: Denies abdominal pain or constipation Genitourinary Genitourinary ED: Denies dysuria or hematuria Musculoskeletal Musculoskeletal: Denies arthralgias or neck pain Integumentary Denies abscess or Abrasions Neurologic Neurologic: Reports headache(s); Denies paresthesias or weakness Psychiatric Psychiatric: Denies anxiety or depression EXAM Physical Exam Const Vital Signs: 07/21/22 11:17 07/21/22 15:11 07/21/22 15:11 Temperature 98.2 F 101.1 F H Temperature Source Temporal Oral Pulse Rate 90 82 Respiratory Rate 20 H 16 Respiratory Effort Respiratory Depth Respiratory Pattern Blood Pressure 117/80 98/56 L Blood Pressure Mean 92 70 Pulse Ox 100 98 98 Oxygen Delivery Method Nasal Cannula Nasal Cannula Nasal Cannula Oxygen Flow Rate (L/min) 2 2 2 07/21/22 15:11 07/21/22 15:11 07/21/22 16:00 Temperature 98.9 F Temperature Source Temporal Pulse Rate 89 Respiratory Rate 18 18 Respiratory Effort Short of Breath Labored Respiratory Depth Normal Respiratory Pattern Normal Blood Pressure 105/76 Blood Pressure Mean 85 Pulse Ox 98 96 Oxygen Delivery Method Nasal Cannula Room Air Room Air Oxygen Flow Rate (L/min) 2 Positive well nourished General Appearance ED: NAD; Negative for pallor HEENT Reports moist mucous membranes Eyes PERRL Resp normal respiratory effort and clear to auscultation bilaterally Auscultation: Negative for rales, rhonchi or wheezes Cardio regular rate and regular rhythm Neuro oriented x3 and CN's II-XII intact bilaterally Sensorium / Orientation: alert Psych mental status grossly normal Skin no wounds and skin turgor normal General Skin Exam: Negative for jaundice or pallor MDM MDM MDM Narrative Medical decision making narrative: Patient presenting with fever, chills, cough, body aches for roughly last 4 to 5 days. No nausea or vomiting. No chest pain. Most likely source is something viral. Pneumonia however is in the differential. Blood work will be obtained including CBC and BMP. CBC shows no leukocytosis. Hemoglobin hematocrit are stable. Platelets are normal. Renal function and electrolytes unremarkable. Patient does state that she has decreased p.o. intake and would like to try some nausea medicine. She was given Zofran 4 mg IV. On examination her lungs are clear to auscultation. Heart regular rate and rhythm without murmur. Chest x- ray was obtained and on my interpretation this shows no acute cardiopulmonary process. Patient tested positive for COVID today. Since he is well-appearing roughly 4 to 5 days into symptoms with normal vital signs and a normal exam as well as normal work-up I think she is stable for discharge. I will have an ambulatory pulse ox informed. She will have a p.o. challenge. Patient passed p.o. challenge. Counseled on return precautions. Stable discharge. Impression: 1. COVID 19 2. Generalized weakness Lab Data Attestation: I reviewed the patient's lab results. Labs: Laboratory Results - last 24 hr 07/21/22 07/21/22 12:43 12:43 WBC 6.6 RBC 3.99 L Hgb 12.5 Hct 37.7 MCV 94.5 MCH 31.3 MCHC 33.2 RDW Std Deviation 51.5 H RDW Coeff of Corrina 14.7 H Plt Count 103 L MPV 12.2 H Immature Gran % (Auto) 4.600 H Neut % (Auto) 41.3 L Lymph % (Auto) 15.5 L [place] % (Auto) 38.1 H Eos % (Auto) 0.3 Baso % (Auto) 0.2 Absolute Neuts (auto) 2.7 Absolute Lymphs (auto) 1.02 Nucleated RBC % 0 Differential Comment SCANNED Diff Path Review Not Reportable Sodium 140 Potassium 4.3 Chloride 110 H Carbon Dioxide 23.0 Anion Gap 7 BUN 16 Creatinine 0.72 Estim Creat Clear Calc 40.81 Est GFR (MDRD) Af Amer 103 Est GFR (MDRD) Non-Af 85 BUN/Creatinine Ratio 22.3 H Glucose 107 H Calcium 9.6 Radiography Diagnostic Testing: Clinical Impression(s) from Imaging Studies Chest X-Ray 07/21/22 12:25 IMPRESSION: Hyperinflation. The lungs are clear. Electronically Signed: Mitch Merida MD at 13:03 EST , Discharge Plan Triage Chief Complaint: Shortness of Breath ED Provider: Rohan Solorzano Dx/Rx/DC Orders Instructions: Coronavirus Disease 2019 (COVID-19): Caring for Yourself or Others Prescriptions: New ondansetron 4 mg tablet,disintegrating 4 mg PO Q8H PRN PRN (Reason: Nausea) Qty: 14 0RF No Action ipratropium-albuterol 0.5 mg-3 mg(2.5 mg base)/3 mL solution for nebulization 3 ml inhalation Q6H PRN (Reason: shortness of breath or wheezing) Qty: 180 6RF ibuprofen 600 mg tablet 600 mg PO Q8H PRN (Reason: Pain) alprazolam 0.5 mg tablet 0.5 mg PO BID Label Comments: TAKE 1 TABLET BY MOUTH 2 TIMES DAILY NEEDED FOR ANXIETY FOR UP TO 30 DAYS. primidone 50 mg tablet 100 mg PO BID budesonide 1 mg/2 mL suspension for nebulization 1 mg inhalation BID Qty: 60 6RF azithromycin 250 mg tablet See Rx Instructions PO .COMPLEX Qty: 6 0RF Rx Instructions: take 500 mg today (day 1), then 250 mg for 4 days (days 2-5) PO prednisone 20 mg tablet 60 mg PO QDAY Qty: 15 0RF Rx Instructions: administer with food or milk atorvastatin 40 MG tablet 40 mg PO QHS apixaban 5 MG tablet 5 mg PO BID Label Comments: TAKE ONE TABLET BY MOUTH TWICE DAILY sertraline 100 MG tablet 100 mg PO DAILY Label Comments: TAKE ONE TABLET BY MOUTH EVERY DAY acetaminophen 325 MG tablet 650 mg PO Q6H PRN PRN (Reason: Pain Score 1-10/Temp > 100.7 F) 0RF Primary Care Provider: Gelacio Horta Referrals: Gelacio Horta MD [Primary Care Provider] - Disposition Disposition: Home, Self Care Discharge Date/Time: 07/21/22 16:13
[2022-07-21] MEDS: Acetaminophen 500 MG Tablet 1000 MG PO (15:57)
[2022-07-21] MEDS: Ondansetron 4 MG/2 ML Vial IV (15:57)
[2022-07-21 16:00] VITALS: BP 105/76; PULSE 89; RESP 18; TEMP 37.2; O2SAT 96
[2022-07-21 16:12] VITALS: O2SAT 96
== END 2022-07-21 16:13 | disposition home or self-care (01) ==
PROVIDERS: Emergency Provider Student in an Organized Health Care Education/Training Program; PCP Family Medicine; Visit Provider Student in an Organized Health Care Education/Training Program
DX: U07.1 COVID-19 (principal); J44.9 Chronic obstructive pulmonary disease, unspecified; R53.1 Weakness; Z87.891 Personal history of nicotine dependence; R11.0 Nausea; R06.02 Shortness of breath
CPT/HCPCS: 71045; 80048; 85025; 87428; 96374; 99282; A4216; J2405

== ENCOUNTER 2023-04-16 15:42 | Emergency (ER) | payer MEDICARE, SELFPAY ==
[2023-04-16 15:44] VITALS: BP 107/74; PULSE 102; RESP 24; TEMP 36.9; O2SAT 98; BMI 27.4
[2023-04-16 16:03] VITALS: PULSE 91; O2SAT 98
[2023-04-16 16:10] VITALS: O2SAT 98
--- NOTE | 2023-04-16 16:14 | EKG12_ITS ---
Test Reason : SOB Blood Pressure : / mmHG Vent. Rate : 091 BPM Atrial Rate : 091 BPM P-R Int : 154 ms QRS Dur : 084 ms QT Int : 342 ms P-R-T Axes : -08 033 030 degrees QTc Int : 420 ms Normal sinus rhythm Cannot rule out Inferior infarct , age undetermined Abnormal ECG Confirmed by ROBERT BATES, PAOLA ([id number]), clinical editor TAVARES GRANT ([id number]) on 04/26/2023 7:52:52 AM Referred By: JACK Confirmed By:SANTANA JONES MD
--- NOTE | 2023-04-16 16:14 | CT_ITS ---
STUDY: CT ABDOMEN AND PELVIS WITH CONTRAST REASON FOR EXAM: Female, 72 years old. pain -- diarrhea RADIATION DOSAGE (If Supplied By Facility): CTDIvol = ( 14.41 ) mGy, DLP = ( 708.69 ) mGycm TECHNIQUE: Transaxial images were obtained from the dome of the diaphragm to the symphysis pubis without oral contrast. IV 100mL Isovue-300 was administered. Sagittal and coronal images were reconstructed. Individualized dose optimization techniques were used for this CT. COMPARISON: 03/19/2019 FINDINGS: The visualized lung bases are unremarkable. The visualized portions of the heart are within normal limits. Normal liver. The gallbladder is contracted. Normal spleen. Normal pancreas. Normal bilateral adrenal glands. Normal right kidney with stable 3.1 cm cyst of the upper pole of the right kidney. Normal left kidney. Evaluation of the GI tract is limited by absence of oral contrast. Cannot exclude stomach wall thickening. No dilated loops of bowel or evidence for obstruction. Cannot exclude segmental thickening of the barry of the small or large bowel, especially the rectosigmoid. Proctosigmoiditis is not excluded. Fluid is seen throughout the right colon and transverse colon, suggestive of diarrheal disorder. Appendix within normal limits. There is diffuse atherosclerotic calcification of the abdominal aorta with elongation and tortuosity, but without a demonstrated aneurysm. Normal inferior vena cava. Normal retroperitoneum. Normal urinary bladder. Absent uterus. Increasing size of a slightly hyperdense, likely fluid collection in the right pelvis currently measuring 7.6 cm size versus 4.9 cm previously. Further evaluation with pelvic ultrasound recommended. There is a small umbilical hernia containing fat. Additional small fat-containing hernia just above the umbilicus, larger than prior exam. There are diffuse degenerative changes of the visualized lumbar spine. CT/Abdomen/Pelvis W IV Cont ONLY IMPRESSION: Fluid throughout much of the right colon and transverse colon suggestive of diarrheal disorders. Possible thickening of the wall of the rectosigmoid-possible proctosigmoiditis. Increasing size of a 7.6 cm probable right PROCESS COORDINATOR cystic structure. Pelvic ultrasound recommended. Electronically Signed: Jose De Jesus Chandra MD at 19:05 EDT ,
--- NOTE | 2023-04-16 16:15 | EX.ED.DYSGE1 ---
HPI History of Present Illness Chief Complaint: Shortness of Breath Informant: patient Narrative Narrative: Presents by private vehicle from home with 4-day history watery loose stools 4-5 episodes a day. No recent antibiotics. Denies bloody stools. Has 3 episodes a day. Subjective fevers at home. No urinary symptoms. No nausea. Had one episode of vomiting in the beginning. History of COPD chronic 2 L oxygen with tobacco history. States chronic dyspnea. No cough. Denies any abdominal surgeries in the past. States been having abdominal pain on and off. [facility] Medical History (Updated 04/16/23 @ 21:[address] Clive Jin DO) Acute respiratory failure with hypoxia COPD (chronic obstructive pulmonary disease) COPD exacerbation History of Parkinson's disease Pneumonia due to COVID-19 virus Home Medications apixaban 5 mg tablet 5 mg PO BID 03/19/19 [History Last Taken Unknown] atorvastatin 40 mg tablet 40 mg PO QHS 03/19/19 [History Last Taken Unknown] sertraline 100 mg tablet 100 mg PO DAILY 03/19/19 [History Last Taken Unknown] acetaminophen 325 mg tablet 650 mg (2 x 325 mg) PO Q6H PRN PRN Pain Score 1-10/Temp > 100.7 F 05/11/20 [Rx Last Taken Unknown] ipratropium 0.5 mg-albuterol 3 mg (2.5 mg base)/3 mL nebulization soln 3 ml inhalation Q6H PRN shortness of breath or wheezing #180 mL 02/13/21 [Rx Last Taken Unknown] alprazolam 0.5 mg tablet 0.5 mg PO BID 08/14/21 [History Last Taken Unknown] ibuprofen 600 mg tablet 600 mg PO Q8H PRN Pain 08/14/21 [History Last Taken Unknown] budesonide 1 mg/2 mL suspension for nebulization 1 mg (2 mL) inhalation BID #60 mL 11/28/21 [Rx Last Taken Unknown] primidone 50 mg tablet 100 mg PO BID 11/28/21 [History Last Taken Unknown] ondansetron 4 mg disintegrating tablet 4 mg PO Q8H PRN PRN Nausea #14 tabs 07/21/22 [Rx Last Taken Unknown] albuterol sulfate 90 mcg/actuation aerosol inhaler 2 puff inhalation Q4H PRN 08/06/22 [History Last Taken Unknown] aripiprazole 5 mg tablet 5 mg PO DAILY 08/06/22 [History Last Taken Unknown] topiramate 50 mg tablet 50 mg PO DAILY 08/06/22 [History Last Taken Unknown] guaifenesin 1,200 mg tablet, extended release 12 hr 1,200 mg PO Q12H #60 tabs 02/10/23 [Rx Last Taken Unknown] amoxicillin 875 mg-potassium clavulanate 125 mg tablet 1 tab PO BID #14 tabs 04/16/23 [Rx Last Taken Unknown] Allergy/AdvReac Type Severity Reaction Status Date / Time No Known Allergies Allergy Verified 04/16/23 15:47 Family History Other No pertinent family history Surgical History History of bladder surgery History of hysterectomy Social History household members: spouse current occupational status: retired current occupation: former machinist supervisor pets and animals: No Smoking Status: Current every day smoker tobacco type: cigarettes Tobacco: How many years used: 50 Electronic Cigarette Use: not used second hand exposure: No alcohol intake: former substance use type: does not use caffeine: Yes Type: coffee Number of servings: 2 what type of physical activity do you participate in: walking frequency: 3-4 times per week seatbelt use: always ROS ROS ED Constitutional Constitutional ED: Denies chills, fever(s) or sweats Eyes Eyes: Denies change in vision ENT ENT ED: Denies dysphagia or sore throat Cardiovascular Cardiovascular: Denies chest pain, leg edema, palpitations or racing heartbeat Respiratory/Chest Respiratory/Chest: Denies cough, dyspnea or dyspnea on exertion Gastrointestinal Gastrointestinal: Reports abdominal pain and diarrhea; Denies nausea or vomiting Genitourinary Genitourinary ED: Denies dysuria, hematuria or urinary frequency Musculoskeletal Musculoskeletal: Denies back pain, extremity pain or neck pain Integumentary Denies rash or wounds Neurologic Neurologic: Denies headache(s), paresthesias or weakness EXAM Physical Exam Const Vital Signs: 04/16/23 15:44 04/16/23 16:03 04/16/23 16:10 Temperature 98.4 F Temperature Source Temporal Pulse Rate 102 H 91 Respiratory Rate 24 H Respiratory Effort Short of Breath Labored Respiratory Pattern Tachypnea Blood Pressure 107/74 Blood Pressure Mean 85 Pulse Ox 98 98 Oxygen Delivery Method Room Air Nasal Cannula Nasal Cannula Oxygen Flow Rate (L/min) 2 2 04/16/23 16:17 04/16/23 18:50 04/16/23 19:27 Temperature 98.1 F Temperature Source Temporal Pulse Rate 67 74 Respiratory Rate 16 20 H Respiratory Effort Respiratory Pattern Blood Pressure 127/88 H 106/59 L Blood Pressure Mean 101 74 Pulse Ox 98 97 98 Oxygen Delivery Method Nasal Cannula Nasal Cannula Nasal Cannula Oxygen Flow Rate (L/min) 2 2 Positive well nourished and well developed Constitutional Narrative: 2 L nasal cannula. General Appearance ED: well developed and NAD HEENT HEENT Narrative: Mild dry mucosal membranes. normocephalic and atraumatic Eyes PERRL, EOMs intact bilaterally and conjunctivae normal General Eye ED: Yes normal appearance of both eyes Neck no lymphadenopathy and supple General: Negative for tenderness Chest Wall Chest: Negative for tenderness Resp normal respiratory effort and normal air movement Effort and Inspection: symmetric chest movement; Negative for respiratory distress Cardio regular rate, regular rhythm and no murmurs Peripheral Pulses: pulses 2+ throughout GI normal to inspection, nondistended, normoactive bowel sounds and non-tender GI Narrative: Negative Solares's or McBurney's tenderness. Palpation: Negative for guarding or rebound tenderness present Back/Spine no CVA tenderness and no thoracic nor lumbar tenderness Extremity normal to inspection General Extremety ED: Negative for edema or tenderness General Extremity: Negative for edema Neuro oriented x3 and no sensory deficits noted Sensorium / Orientation: awake and alert Skin no rashes or lesions noted and no wounds MDM MDM MDM Narrative Medical decision making narrative: Interventions / MDM: Differential diagnosis: Colitis, diarrhea, ovarian cyst Diagnosis considered but do not suspect: C. difficile, patient unable to provide stool sample. My EKG interpretation: Sinus rate of 91, no ST or T wave changes. Imaging independently reviewed and interpreted by myself: CT abdomen pelvis IV contrast: Thickened sigmoid concerning for sigmoiditis. Fluid through the colon suggestive. No obstruction. Right adnexal cysts, enlarging from previously recommended ultrasound per radiology. Ultrasound pelvis obtain 5 x 9 cm complex cyst. External documents reviewed: N/A Test considered but not ordered:N/A ED course: For generalized abdominal pain, diarrhea for 3 days. Laboratory studies obtained she is given IV fluids. CT scan abdomen pelvis ordered. Abdominal labs stable white count 1.9, potassium 3.1. Creatinine [address] scan concerns for sigmoiditis, potassium replaced she started on Augmentin. Concerning enlarging adnexal cyst in the right ultrasound was ordered further evaluation. Ultrasound concerns for complex cyst 5.9 cm. No clinical torsion. She does not have a manager body. She is tolerating oral fluids in the ED. She is given gynecology for follow-up without further testing. She will follow-up with her PCP for her symptoms should continue oral fluids for hydration. Return precaution discussed. Of note at discharge per nursing she had a bout of emesis and watery stools that went on the bed unable to be collected. She is given oral Zofran. She is able to tolerate p.o. fluids in the ED. She is able to ambulate in the ED with no difficulties. Re-evaluation: stable Disposition discussed with patient/family/significant other: Patient Case discussed with consulting clinician: N/A This note was generated with [employer] dictation software. It may contain incorrect words, spelling, and punctuation that were not noted in checking the note before signing. Lab Data Attestation: I reviewed the patient's lab results. Labs: Laboratory Results - last 24 hr 04/16/23 16:52 WBC 11.9 H RBC 3.73 L Hgb 11.3 L Hct 33.3 L MCV 89.3 MCH 30.3 MCHC 33.9 RDW Std Deviation 50.4 H RDW Coeff of Corrina 15.4 H Plt Count 134 L MPV 12.3 H Immature Gran % (Auto) 2.000 H Neut % (Auto) 60.9 Lymph % (Auto) 18.9 L [place] % (Auto) 17.9 H Eos % (Auto) 0.2 Baso % (Auto) 0.1 Absolute Neuts (auto) 7.3 Absolute Lymphs (auto) 2.26 Nucleated RBC % 0 Differential Comment SEE COMMENT Diff Path Review May foll Atypical Lymphocytes RARE Platelet Estimate SLT DEC RBC Morphology N CHROM Anisocytosis RARE Macrocytosis RARE Ovalocytes RARE Sodium 135 L Potassium 3.1 L Chloride 110 H Carbon Dioxide 19.0 L Anion Gap 6 BUN 18 Creatinine 0.77 Estim Creat Clear Calc 43.91 Est GFR (MDRD) Af Amer 95 Est GFR (MDRD) Non-Af 79 BUN/Creatinine Ratio 23.5 H Glucose 105 Calcium 8.7 Total Bilirubin 0.20 AST 12 L ALT 24 Alkaline Phosphatase 75 Total Protein 7.2 Albumin 3.7 Globulin 3.5 Albumin/Globulin Ratio 1.1 Lipase 32 Radiography Diagnostic Testing: Clinical Impression(s) from Imaging Studies Abdomen/Pelvis CT 04/16/23 16:14 IMPRESSION: Fluid throughout much of the right colon and transverse colon suggestive of diarrheal disorders. Possible thickening of the wall of the rectosigmoid-possible proctosigmoiditis. Increasing size of a 7.6 cm probable right [employer] cystic structure. Pelvic ultrasound recommended. Electronically Signed: Jose De Jesus Chandra MD at 19:05 EDT , Pelvic/Transvag US 04/16/23 19:14 IMPRESSION: Limited by bowel gas. Confirmation of 5.9 cm well-defined low echogenicity mass in the right pelvis. It is not clearly a simple cyst. Therefore further evaluation with contrast MRI recommended. Electronically Signed: Jose De Jesus Chandra MD at 20:54 EDT , Discharge Plan Triage Chief Complaint: Shortness of Breath Other Complaint: Diarrhea ED Provider: Clive Jin Dx/Rx/DC Orders Clinical Impression: Sigmoiditis, Diarrhea, Complex cyst of right ovary, Hypokalemia Instructions: ED Understanding Colitis, ED Diarrhea, Unknown Cause, ED Ovarian Cyst Prescriptions: New amoxicillin-pot clavulanate 875-125 mg tablet 1 tab PO BID Qty: 14 0RF No Action ipratropium-albuterol 0.5 mg-3 mg(2.5 mg base)/3 mL solution for nebulization 3 ml inhalation Q6H PRN (Reason: shortness of breath or wheezing) Qty: 180 6RF ibuprofen 600 mg tablet 600 mg PO Q8H PRN (Reason: Pain) alprazolam 0.5 mg tablet 0.5 mg PO BID Patient Comments: TAKE 1 TABLET BY MOUTH 2 TIMES DAILY NEEDED FOR ANXIETY FOR UP TO 30 DAYS. primidone 50 mg tablet 100 mg PO BID budesonide 1 mg/2 mL suspension for nebulization 1 mg inhalation BID Qty: 60 6RF albuterol sulfate 90 mcg/actuation HFA aerosol inhaler 2 puff inhalation Q4H PRN Patient Comments: INHALE TWO PUFFS BY MOUTH EVERY 6 HOURS NEEDED FOR WHEEZING aripiprazole 5 mg tablet 5 mg PO DAILY topiramate 50 mg tablet 50 mg PO DAILY guaifenesin 1,200 mg tablet extended release 12hr 1,200 mg PO Q12H Qty: 60 6RF atorvastatin 40 MG tablet 40 mg PO QHS apixaban 5 MG tablet 5 mg PO BID Patient Comments: TAKE ONE TABLET BY MOUTH TWICE DAILY sertraline 100 MG tablet 100 mg PO DAILY Patient Comments: TAKE ONE TABLET BY MOUTH EVERY DAY acetaminophen 325 MG tablet 650 mg PO Q6H PRN PRN (Reason: Pain Score 1-10/Temp > 100.7 F) 0RF ondansetron 4 mg tablet,disintegrating 4 mg PO Q8H PRN PRN (Reason: Nausea) Qty: 14 0RF Primary Care Provider: Gelacio Horta Referrals: Gelacio Horta MD [Primary Care Provider] - 1 Week Lynne Tran MD [Med Staff - Active Staff] - 1 Week Activity Restrictions/Additional Instructions: Your work-up notes concerns for sigmoiditis with acute diarrhea. Take antibiotic as prescribed. Work-up also notes a complex right ovarian cyst 5.9 cm on ultrasound after initial CT. Follow-up with Dr. Tran for further testing. Continue oral fluids for hydration. Follow-up with your doctors, return if any worsening symptoms. Disposition Disposition: Home, Self Care Discharge Date/Time: 04/16/23 21:58
[2023-04-16 16:17] VITALS: O2SAT 98
[2023-04-16 17:11] LABS: Absolute Lymphocyte Count 2.26 X10^3/uL (0.83-4.51); Absolute Neutrophil Count 7.3 X10^3/uL (2.0-7.7); Basophil# 0.01 X10^3/uL; Basophil% 0.1 % (0-1); Eosinophil# 0.02 X10^3/uL; Eosinophils% 0.2 % (0-5); Hematocrit 33.3 % (37-47); Hemoglobin 11.3 g/dL (12.0-15.0); Lymphocyte # 2.26 X10^3/ul (0.83-4.51); Lymphocyte % 18.9 % (19-41); Mean Corp Hgb Conc 33.9 g/dL (32-36); Mean Corpuscular Hgb 30.3 pg (27.0-32.0); Mean Corpuscular Volume 89.3 fL (81-99); Mean Platelet Vol. 12.3 fl (6.2-12.0); Monocyte# 2.14 X10^3/uL; Monocyte% 17.9 % (0-10); NRBC Flagged by Analyzer 0 % (0-5); Neutrophil # 7.26 X10^3/uL (2.7-7.7); Neutrophil % 60.9 % (47-70); POSITIVE DIFFERENTIAL YES; POSITIVE MORPHOLOGY YES; Platelet Count 134 K/mm3 (150-450); RBC Distribution Width CV 15.4 % (11.6-14.6); RBC Distribution Width SD 50.4 fl (35.1-43.9); Red Blood Count 3.73 M/mm3 (4.2-5.4); White Blood Count 11.9 K/mm3 (4.4-11.0)
[2023-04-16] MEDS: 0.9% Normal Saline (1000mL) 1,000 ML 1000 ML IV (17:11)
[2023-04-16 17:21] LABS: Differential Indicated SCAN CRITERIA MET
[2023-04-16 17:27] LABS: Anisocytosis RARE; Atypical Lymphocyte RARE %; Macrocytosis RARE; Platelet Estimate SLT DEC (ADEQ); Red Cell Morphology N CHROM NORMAL (NORM C&C)
[2023-04-16 17:28] LABS: Ovalocyte RARE
[2023-04-16 17:41] LABS: ALB/GLOB Ratio 1.1 RATIO (0.9-2.4); AST(SGOT) 12 U/L (15-37); Alanine Aminotransfer ALT/SGPT 24 U/L (13-56); Albumin, Serum 3.7 g/dL (3.2-5.0); Alkaline Phosphatase 75 U/L (45-117); Anion Gap 6 (5-15); BUN 18 mg/dL (7-18); BUN/Creat Ratio 23.5 RATIO (10-20); Calcium,Total 8.7 mg/dL (8.5-10.1); Chloride 110 mmol/L (98-107); Creatinine, Serum 0.77 mg/dL (0.55-1.02); EST Glomerular Filtration Rate 79 mL/min (>60); Est Glom Filt Rate - Afr Amer 95 mL/min (>60); Estimated Creatinine Clearance 43.91 ml/min; Globulin 3.5 g/dL (2.2-4.2); Glucose 105 mg/dL (74-106); Lipase 32 U/L (13-75); Potassium 3.1 mmol/L (3.5-5.1); Protein, Total 7.2 g/dL (6.4-8.2); Sodium Level 135 mmol/L (136-145)
[2023-04-16 18:50] VITALS: BP 127/88; PULSE 67; RESP 16; TEMP 36.7; O2SAT 97
--- NOTE | 2023-04-16 19:14 | US_ITS ---
STUDY: ULTRASOUND OF THE FEMALE PELVIS - COMPLETE REASON FOR EXAM: Female, 72 years old. ovarian cyst LMP: TECHNIQUE: Transabdominal and Transvaginal TECHNICAL QUALITY: Limited. Examination limited by bowel gas. COMPARISON: CT scan of the same day. FINDINGS: The uterus is surgically absent. The right ovary is non-visualized. There is a 4.8 x 5.2 x 5.9 homogeneous low echogenicity structure which is not a simple cyst. Complex cyst is probable but further evaluation recommended as below. The left ovary is non-visualized. Grossly normal bladder with volume of 261. US/Pelvic w/ Transvaginal IMPRESSION: Limited by bowel gas. Confirmation of 5.9 cm well-defined low echogenicity mass in the right pelvis. It is not clearly a simple cyst. Therefore further evaluation with contrast MRI recommended. Electronically Signed: Jose De Jesus Chandra MD at 20:54 EDT ,
[2023-04-16] MEDS: Amox/Clavulanate 875 MG Tablet PO (19:25)
[2023-04-16] MEDS: Potassium Chloride Oral Tablet 20 MEQ 40 MEQ PO (19:25)
[2023-04-16 19:27] VITALS: BP 106/59; PULSE 74; RESP 20; O2SAT 98
[2023-04-16] MEDS: Ondansetron ODT 4 MG Tablet PO (21:48)
[2023-04-20 08:11] LABS: Pathologist Review Reviewed
== END 2023-04-16 21:58 | disposition home or self-care (01) ==
PROVIDERS: Emergency Provider Emergency Medicine; PCP Family Medicine; Visit Provider Emergency Medicine
DX: K52.9 Noninfective gastroenteritis and colitis, unspecified (principal); J44.9 Chronic obstructive pulmonary disease, unspecified; E87.6 Hypokalemia; F17.210 Nicotine dependence, cigarettes, uncomplicated; N83.201 Unspecified ovarian cyst, right side; Z99.81 Dependence on supplemental oxygen
CPT/HCPCS: 74177; 76830; 76856; 80053; 83690; 85025; 87811; 93005; 96360; 96361; 99284; J7030; Q9967

== ENCOUNTER 2023-05-26 13:10 | Outpatient (CLI) | payer MEDICARE, SELFPAY ==
--- NOTE | 2023-05-26 13:13 | CT_ITS ---
STUDY: CT ABDOMEN AND PELVIS WITH CONTRAST REASON FOR EXAM: Female, 72 years old. POST OP PAIN RADIATION DOSAGE (If Supplied By Facility): CTDIvol = ( 12.19 ) mGy, DLP = ( 805.39 ) mGycm TECHNIQUE: Transaxial images were obtained from the dome of the diaphragm to the symphysis pubis with oral contrast. Oral and amp; IV Gastrografin and amp; 100mL Isovue-300 was administered. Sagittal and coronal images were reconstructed. Individualized dose optimization techniques were used for this CT. COMPARISON: Comparison is made with prior study April 16, 2023. FINDINGS: The visualized lung bases are unremarkable. Coronary artery calcification. Normal liver. The gallbladder is contracted. Normal spleen. Normal pancreas. Normal bilateral adrenal glands. Stable right renal cyst. Normal left kidney. Normal visualized stomach. Normal small intestine. Normal colon. The appendix is visualized and appears normal. There is scattered atherosclerotic calcification of the abdominal aorta, without a demonstrated aneurysm. Normal inferior vena cava. Normal retroperitoneum. Normal urinary bladder. The previously seen mass in the right side of the pelvis has been resected. Minimal postoperative changes are seen. There is absence of the uterus consistent with a prior hysterectomy. Postoperative changes are seen along the anterior abdominal wall in the midline. Small residual umbilical hernia. Normal osseous structures. CT/Abdomen/Pelvis WITH Contrast IMPRESSION: Status post resection of the mass in the right side of the pelvis with postsurgical changes. The examination is unchanged. Electronically Signed: Mitch Merida MD at 15:43 EST ,
[2023-05-26 15:44] LABS: CREATININE FINGERSTICK 1.1 mg/dL (0.55-1.02)
[2023-05-26 15:51] VITALS: BP 128/63; PULSE 83; RESP 16; O2SAT 97
--- NOTE | 2023-05-26 15:56 | NURSING ---
CT techs were concerned pt was not acting right. Pt's ordering provider, Amberly Coyne contacted and Doretha states that pt was acting appropriately in office today prior to coming to CT. Doretha requested VS and POC glucose be taken, telephone order taken for POC glucose. Pt reports being hungry. POC glucose taken =104. VS WNL. Pt states she's feeling well to drive home. Pt walked to elevator.
[2023-05-26 16:07] LABS: Bedside Glucose 104 mg/dL (74-106)
== END 2023-05-26 23:59 | disposition home or self-care (01) ==
LOC: CT 13:11
PROVIDERS: PCP Family Medicine; Referring Provider Nurse Practitioner Gerontology; Visit Provider Nurse Practitioner Gerontology
DX: G89.18 Other acute postprocedural pain (principal); R10.9 Unspecified abdominal pain
CPT/HCPCS: 74177; 82962; Q9967

== ENCOUNTER → 2023-06-23 | Outpatient (CLI) | payer MEDICARE, SELFPAY ==
--- NOTE | 2023-06-23 13:48 | CT_ITS ---
EXAM: CT CHEST, LUNG CANCER SCREENING WITHOUT INTRAVENOUS CONTRAST CLINICAL INDICATION: smoker TECHNIQUE: Helically acquired images were obtained of the chest without intravenous contrast using low dose (LDCT) lung cancer screening protocol. This CT exam was performed using one or more of the following dose reduction techniques: automated exposure control, adjustment of the mA and/or kV according to patient size, and/or use of iterative reconstruction technique. COMPARISON: CT Lung Cancer Screening dated 06/20/2022 FINDINGS: LUNGS AND PLEURAL SPACES: Mild diffuse emphysematous changes of lungs. No lung mass or suspicious pulmonary nodule. No pleural effusion or thickening. No pneumothorax. HEART: Normal. Normal heart size. Minimal pericardial thickening/fluid. Prominent coronary artery calcification. MEDIASTINUM: Normal. No mediastinal or hilar adenopathy. Esophagus is unremarkable. No hiatal hernia. THYROID: Normal. No thyroid nodules or calcification. BONES/JOINTS: No suspicious lytic or blastic abnormality. VASCULATURE: No aortic aneurysm. LYMPH NODES: Normal. No enlarged lymph nodes. CT/Low Dose CT Lung Screening IMPRESSION: 1. No evidence of a lung mass or suspicious pulmonary nodule. 2. Pulmonary emphysema. Lung-RADS score: 1 - Negative. Recommend continued annual screening with a low-dose CT (LDCT) in 12 months. Electronically Signed: Meliton Lizama MD at 14:58 EST ,
== END | disposition home or self-care (01) ==
LOC: CT 13:48
PROVIDERS: PCP Family Medicine; Referring Provider Nurse Practitioner Acute Care; Visit Provider Nurse Practitioner Acute Care
DX: F17.210 Nicotine dependence, cigarettes, uncomplicated (principal)
CPT/HCPCS: 71271

== ENCOUNTER → 2024-06-26 | Outpatient (CLI) | payer MEDICARE, SELFPAY ==
--- NOTE | 2024-06-26 08:24 | CT_ITS ---
STUDY: LOW DOSE CT LUNG CANCER SCREENING REASON FOR EXAM: Female, 73 years old. Current smoker. Patient smokes 1 pack per day for 51 years. History of emphysema and COPD. RADIATION DOSAGE (If Supplied By Facility): CTDIvol = ( 2.01 ) mGy, DLP = ( 62.68 ) mGycm TECHNIQUE: No contrast was administered. Low dose technique was utilized (average mAS-38 and kVp 120). 1.25 mm axial source images with a slice interval of 1.25-mm were reconstructed in lung windows. 2.5 mm axial source images with a slice interval of 2.5-mm were reconstructed in lung windows. 5.0 mm axial source images with a slice interval of 5.0-mm were reconstructed in soft tissue windows. COMPARISON: Comparison is made with prior study dated June 23, 2023. NODULES: No suspicious nodules are seen. Emphysema: Once again, there is evidence of emphysematous changes with scarring in the posterior aspect of the right upper lobe as well as at the lung bases. Endobronchial lesion: None Aorta: Atherosclerotic plaque formation of the aortic arch. CORONARY ARTERIES: Coronary artery calcification is seen. Heart: Unremarkable Pulmonary artery: Unremarkable Mediastinal nodes: Unremarkable Other chest and abdominal findings: CT/Low Dose CT Lung Screening IMPRESSION: Lung-RADS category 2 - Continue annual screening with LDCT in 12 months. IMPORTANT NOTES FOR USE: ACR Lung-RADS Version 1.1 Assessment Categories Release Date: 2018 Category: Coded 0-4 bases on nodule(s) with highest degree of suspicion. Negative screen is defined as categories 1 and 2; a positive screen is defined as categories 3 and 4. Category 3 and 4A nodules that are unchanged on interval CT should be coded as category 2, and individuals returned to screening in 12 months. Category 4X: Category 3 or 4 nodules with additional imaging findings that increase the suspicion of lung cancer, such as spiculation, GGN that doubles in size in 1 year, enlarged lymph notes, etc. Category Modifiers: S (significant finding unrelated to lung cancer) Electronically Signed: Mitch Merida MD at 10:23 EST ,
== END | disposition home or self-care (01) ==
LOC: CT 08:22
PROVIDERS: PCP Family Medicine; Referring Provider Nurse Practitioner Acute Care; Visit Provider Nurse Practitioner Acute Care
DX: F17.210 Nicotine dependence, cigarettes, uncomplicated (principal)

== ENCOUNTER 2024-09-01 10:20 | Inpatient (IN) | payer MEDICARE, SELFPAY ==
[2024-09-01] VITALS (17 sets, daily range): BP systolic 95–121; BP diastolic 45–86; PULSE 69–97; RESP 14–28; TEMP 36.1–37.1; O2SAT 93–99; BMI 30.1; BMI 28.9
--- NOTE | 2024-09-01 10:33 | EKG12_ITS ---
Test Reason : CP Blood Pressure : */* mmHG Vent. Rate : 79 BPM Atrial Rate : 79 BPM P-R Int : 140 ms QRS Dur : 124 ms QT Int : 380 ms P-R-T Axes : 29 50 47 degrees QTcB Int : 435 ms Normal sinus rhythm Right bundle branch block Abnormal ECG Confirmed by MAITE BATES, JAKE ([id number]), editor newspaper PAULETTE AVELAR ([id number]) on 09/04/2024 7:29:06 AM Referred By: James Piper Confirmed By: JAKE ARORA MD
--- NOTE | 2024-09-01 10:35 | EDS_ITS ---
HPI History of Present Illness Chief Complaint: Shortness of Breath Informant: patient and PCP Narrative Narrative: 73-year-old female sent over from pulmonary because of COPD exacerbation. She states she has been having increasing dyspnea over the last 2 or 3 days, has been using her nebulizers but they are not helping very much, she checked her pulse ox says she usually uses oxygen only at night, 2 L, and she was 88-89 without oxygen so she had been using it during the day. She is been coughing a lot more, her sputum looks similar to usual, white or clear, no blood. No fevers or chills. She has chest tightness. No GI symptoms or leg swelling or orthopnea. She denies having a cardiac history that she knows of. [facility] Medical History Fibroma of right ovary Pulmonary embolism History of Parkinson's disease Acute respiratory failure with hypoxia COPD exacerbation Pneumonia due to COVID-19 virus COPD (chronic obstructive pulmonary disease) Home Medications ?Medication ?Instructions ?Recorded ?Last Taken ?Type apixaban 5 mg tablet 5 mg PO BID 03/19/19 Unknown History atorvastatin 40 mg tablet 40 mg PO QHS 03/19/19 Unknow n History sertraline 100 mg tablet 100 mg PO DAILY 03/19/19 Unk nown History acetaminophen 325 mg tablet 650 mg (2 x 325 mg) PO Q6H PRN PRN 05/11/20 Unknown Rx Pain Score 1-10/Temp > 100.7 F ipratropium 0.5 mg-albuterol 3 mg 3 ml inhalation Q6H PRN shortness 02/13/21 Unknown Rx (2.5 mg base)/3 mL nebulization of breath or wheezing #180 mL soln alprazolam 0.5 mg tablet 0.5 mg PO BID 08/14/21 Unkno wn History ibuprofen 600 mg tablet 600 mg PO Q8H PRN Pain 08/14 Unknown History budesonide 1 mg/2 mL suspension 1 mg (2 mL) inhalation BID #60 mL 11/28/21 Unknown Rx for nebulization primidone 50 mg tablet 100 mg PO BID 11/28/21 Unkno wn History ondansetron 4 mg disintegrating 4 mg PO Q8H PRN PRN Na usea #14 tabs 07/21/22 Unknown Rx tablet aripiprazole 5 mg tablet 5 mg PO DAILY 08/06/22 Unkno wn History topiramate 50 mg tablet 50 mg PO DAILY 08/06/22 Unkn own History guaifenesin 1,200 mg tablet, 1,200 mg PO Q12H #60 tabs 02/10/23 Unknown Rx extended release 12 hr albuterol sulfate 90 mcg/actuation 2 puff inhalation Q 4H PRN 07/26/23 Unknown Rx aerosol inhaler shortness of breath or wheez ing #8.5 grams fluticasone fur. 200 mcg-umeclid 1 inh inhalation FERNANDO Y #60 ea 07/26/23 Unknown Rx 62.5 mcg-vilant 25 mcg inhalat.powder (Trelegy Ellipta) gabapentin 100 mg capsule mg PO BID 07/26/23 Unknown H istory isosorbide mononitrate 60 mg mg PO 07/26/23 Unknown Hi story tablet,extended release 24 hr trazodone 50 mg tablet mg PO QHS PRN 07/26/23 Unkno wn History Allergy/AdvReac Type Severity Reaction Status Date / Time No Known Allergies Allergy Verified 09/01/24 10:21 Family History Other No pertinent family history Surgical History History of bladder surgery History of hysterectomy Social History household members: spouse current occupational status: retired current occupation: former employee development specialist pets and animals: No Smoking Status: Current every day smoker tobacco type: cigarettes Tobacco: How many years used: 50 Electronic Cigarette Use: not used second hand exposure: No alcohol intake: former substance use type: does not use caffeine: Yes Type: coffee Number of servings: 2 what type of physical activity do you participate in: walking frequency: 3-4 times per week seatbelt use: always ROS ROS ED Constitutional Constitutional ED: Denies chills or fever(s) Eyes Eyes: Denies change in vision or diplopia ENT ENT ED: Denies rhinorrhea or sore throat Cardiovascular Cardiovascular: Denies palpitations or racing heartbeat Respiratory/Chest Respiratory/Chest: Reports as per HPI, chest tightness, cough, dyspnea and wheezing Gastrointestinal Gastrointestinal: Denies abdominal pain, diarrhea, nausea or vomiting Genitourinary Genitourinary ED: Denies dysuria or hematuria Musculoskeletal Musculoskeletal: Denies back pain or neck pain Integumentary Denies abscess or rash Neurologic Neurologic: Denies headache(s), paresthesias or weakness Psychiatric Psychiatric: Denies suicidal thoughts EXAM Physical Exam Const Vital Signs: 09/01/24 10:21 09/01/24 11:05 09/01/24 11:24 Temperature 96.9 F L Temperature Source Temporal Pulse Rate 76 69 Respiratory Rate 22 H 22 H Respiratory Effort Respiratory Pattern Tachypnea Blood Pressure 96/45 L Blood Pressure Mean 62 Pulse Ox 99 Oxygen Delivery Method Nasal Cannula Nasal Cannula Oxygen Flow Rate (L/min) 4 2 09/01/24 11:24 09/01/24 12:14 09/01/24 12:46 Temperature Temperature Source Pulse Rate 79 75 Respiratory Rate 21 H 14 Respiratory Effort Short of Breath Respiratory Pattern Tachypnea Blood Pressure 112/55 L Blood Pressure Mean 74 Pulse Ox 96 93 Oxygen Delivery Method Nasal Cannula Nasal Cannula Room Air Oxygen Flow Rate (L/min) 2 2 09/01/24 13:00 Temperature Temperature Source Pulse Rate Respiratory Rate Respiratory Effort Respiratory Pattern Blood Pressure Blood Pressure Mean Pulse Ox 93 Oxygen Delivery Method Room Air Oxygen Flow Rate (L/min) Positive well nourished and well developed General Appearance ED: well developed and NAD HEENT Reports moist mucous membranes normocephalic and atraumatic Eyes PERRL and EOMs intact bilaterally Neck full ROM, no lymphadenopathy, supple, no meningeal signs and no JVD Resp Resp Narrative: Diffuse expiratory wheezes and prolonged expiratory phase. Mild respiratory distress, speaking in 5 word sentences. Keenly alert. Cardio regular rate, regular rhythm and no murmurs GI non-tender and non-distended Auscultation: normoactive bowel sounds Palpation: soft Back/Spine no CVA tenderness General Back: other FROM Extremity normal to inspection General Extremety ED: Negative for edema, pulses abnormal or tenderness General Extremity: Negative for edema or pulses abnormal Neuro oriented x3, CN's II-XII intact bilaterally and no sensory deficits noted Sensorium / Orientation: awake and alert Motor Exam: strength 5/5 throughout Psych Psych Narrative: A little anxious. Skin no rashes or lesions noted and no wounds MDM MDM MDM Narrative Medical decision making narrative: The patient does not appear to be in imminent respiratory failure or need to be intubated right now, I think reasonable to try some nebulizer treatments and watch her closely while working her up. Obtained her EKG during my evaluation, she has a right bundle branch block with no acute injury pattern. The RBBB is new since her prior EKG although it was 1.5 years ago. Her troponin is normal. She has a significant leukocytosis, however her chest x-ray, 1 view on my interpretation is negative for pneumonia. She has a left shift and some band neutrophils, 1%. After several nebulizer treatments, as well as half liter of IV fluid bolus since her blood pressures were little soft, that helped blood pressure up to 112/55, she is improved, but still tachypneic and very wheezy. I took her off of her oxygen, and she is 93% on room air, probably because she is mildly tachypneic at this time. I think she needs to be admitted to the hospital for further treatment. Solu-Medrol was given. Empiric antibiotics will be given. She is amenable to that plan discussed with hospitalist History & Record Review Additional record(s) reviewed:: Other (No prior echo) Lab Data Attestation: I reviewed the patient's lab results. Labs: Laboratory Results - last 24 hr 09/01/24 11:45 WBC 19.7 H RBC 3.19 L Hgb 9.8 L Hct 28.8 L MCV 90.3 MCH 30.7 MCHC 34.0 RDW Std Deviation 49.9 H RDW Coeff of Corrina 15.0 H Plt Count 106 L MPV 11.5 Neut % (Auto) Not Reportable Absolute Neuts (auto) 14.4 H Absolute Lymphs (auto) 2.36 Total Counted 100 Neutrophils % (Manual) 72 H Band Neutrophils % 1 Lymphocytes % (Manual) 12 L Monocytes % (Manual) 12 H Metamyelocytes % 2 H Myelocytes % 1 H Diff Path Review May foll Platelet Estimate SLT DEC Polychromasia 1+ Tear Drop Cells 1+ Ovalocytes 1+ Acanthocytes (Spur) 1+ Sodium 138 Potassium 4.1 Chloride 109 H Carbon Dioxide 19.5 L Anion Gap 10 BUN 17 Creatinine 0.62 L Estim Creat Clear Calc 63.97 Est GFR (MDRD) Non-Af 94 BUN/Creatinine Ratio 26.6 H Glucose 119 H Calcium 8.8 Troponin T High Sens 8 Radiography Diagnostic Testing: Clinical Impression(s) from Imaging Studies Chest X-Ray 09/01/24 10:39 IMPRESSION: No acute cardiopulmonary process. Reading Location: [facility] Rhythm Strip Rhythm Strip: Sinus Rhythm Rate: 80 Ectopy: None EKG Initial EKG: Attestation: I personally reviewed and interpreted this EKG as follows: Interpretation: Sinus Rhythm, No Acute Injury Pattern and RBBB Prior EKG tracings: available for review Prior: Changed (Prior EKG 04/16/2023 showed no RBBB) Management Discussion w/another healthcare provider: Hospitalist Discharge Plan Triage Chief Complaint: Shortness of Breath ED Provider: Barry Harrington Dx/Rx/DC Orders Clinical Impression: Acute respiratory insufficiency, COPD with acute exacerbation Prescriptions: No Action ipratropium-albuterol 0.5 mg-3 mg(2.5 mg base)/3 mL solution for nebulization 3 ml inhalation Q6H PRN (Reason: shortness of breath or wheezing) Qty: 180 6RF ibuprofen 600 mg tablet 600 mg PO Q8H PRN (Reason: Pain) alprazolam 0.5 mg tablet 0.5 mg PO BID Patient Comments: TAKE 1 TABLET BY MOUTH 2 TIMES DAILY NEEDED FOR ANXIETY FOR UP TO 30 DAYS. primidone 50 mg tablet 100 mg PO BID budesonide 1 mg/2 mL suspension for nebulization 1 mg inhalation BID Qty: 60 6RF aripiprazole 5 mg tablet 5 mg PO DAILY topiramate 50 mg tablet 50 mg PO DAILY guaifenesin 1,200 mg tablet extended release 12hr 1,200 mg PO Q12H Qty: 60 6RF trazodone 50 mg tablet PO QHS PRN Patient Comments: TAKE ONE TABLET BY MOUTH NIGHTLY NEEDED FOR SLEEP isosorbide mononitrate 60 mg tablet extended release 24 hr PO Patient Comments: Take 1 tablet (60 mg) by mouth daily. Do not crush or chew. gabapentin 100 mg capsule PO BID Patient Comments: TAKE ONE CAPSULE BY MOUTH TWICE DAILY albuterol sulfate 90 mcg/actuation HFA aerosol inhaler 2 puff inhalation Q4H PRN (Reason: shortness of breath or wheezing) Qty: 8.5 11RF Trelegy Ellipta 200-62.5-25 mcg blister with device 1 inh inhalation DAILY Qty: 60 6RF atorvastatin 40 MG tablet 40 mg PO QHS apixaban 5 MG tablet 5 mg PO BID Patient Comments: TAKE ONE TABLET BY MOUTH TWICE DAILY sertraline 100 MG tablet 100 mg PO DAILY Patient Comments: TAKE ONE TABLET BY MOUTH EVERY DAY acetaminophen 325 MG tablet 650 mg PO Q6H PRN PRN (Reason: Pain Score 1-10/Temp > 100.7 F) 0RF ondansetron 4 mg tablet,disintegrating 4 mg PO Q8H PRN PRN (Reason: Nausea) Qty: 14 0RF Primary Care Provider: Gelacio Horta Referrals: Gelacio Horta MD [Primary Care Provider] - Print Language: Par[place]ayan Disposition Disposition: Acute Care [facility]
--- NOTE | 2024-09-01 10:39 | RAD_ITS ---
EXAM: XR Chest, 1 View CLINICAL INDICATION: SOB TECHNIQUE: Frontal view of the chest. COMPARISON: No relevant prior studies available. FINDINGS: LUNGS AND PLEURAL SPACES: Unremarkable. No consolidation. No pneumothorax. HEART: Unremarkable. No cardiomegaly. MEDIASTINUM: Unremarkable. Normal mediastinal contour. BONES/JOINTS: Unremarkable. No acute fracture. RAD/Chest 1 View (Portable) IMPRESSION: No acute cardiopulmonary process. Reading Location: [facility]
[2024-09-01] MEDS: Ipratropium/Albuterol Sulfate 3 ML AMPUL.NEB INHALATION ×3 (11:04→20:55)
[2024-09-01] MEDS: Albuterol 2.5 MG/3 ML VIAL.NEB. INHALATION ×2 (11:04)
[2024-09-01 11:53] LABS: Hematocrit 28.8 % (37-47); Hemoglobin 9.8 g/dL (12.0-15.0); Mean Corpuscular Hgb 30.7 pg (27.0-32.0); Mean Corpuscular Volume 90.3 fL (81-99); Mean Platelet Vol. 11.5 fl (6.2-12.0); POSITIVE COUNT YES; POSITIVE DIFFERENTIAL YES; POSITIVE MORPHOLOGY YES; Platelet Count 106 K/mm3 (150-450); RBC Distribution Width SD 49.9 fl (35.1-43.9); Red Blood Count 3.19 M/mm3 (4.2-5.4); White Blood Count 19.7 K/mm3 (4.4-11.0)
[2024-09-01 11:58] LABS: Differential Indicated MANUAL DIFF
[2024-09-01] MEDS: 0.9% Normal Saline (500mL Bag) 500 ML 999 ML IV (12:05)
[2024-09-01] MEDS: MethylPREDNISolone 125 MG/2 ML Vial IV (12:05)
[2024-09-01 12:24] LABS: Anion Gap 10 (5-15); BUN 17 mg/dL (4-19); BUN/Creat Ratio 26.6 RATIO (10-20); Calcium,Total 8.8 mg/dL (7.6-11.0); Carbon Dioxide 19.5 mmol/L (21.0-32.0); Chloride 109 mmol/L (98-108); Creatinine, Serum 0.62 mg/dL (0.70-1.20); EST Glomerular Filtration Rate 94 (>60); Estimated Creatinine Clearance 63.97 ml/min (50-250); Glucose 119 mg/dL (70-99); Potassium 4.1 mmol/L (3.3-5.1); Sodium Level 138 mmol/L (133-145); Troponin T High Sensitivity 8 ng/L (<=14)
[2024-09-01 12:41] LABS: Lymphocyte 12 % (19-41); Metamyelocyte 2 % (0-1); Monocyte 12 % (0-10); Myelocyte 1 % (0-0); Neutrophil-Band 1 % (0-5); Neutrophil-Segmented 72 % (47-70); Total Cells Counted 100 (MANUAL DIFF)
[2024-09-01 12:43] LABS: Ovalocyte 1+
[2024-09-01 12:44] LABS: Acanthocytes 1+; Platelet Estimate SLT DEC (ADEQ); Polychromasia 1+; Tear Drop Cell 1+
[2024-09-01 12:45] LABS: Absolute Lymphocyte Count 2.36 X10^3/uL (0.83-4.51); Absolute Neutrophil Count 14.4 X10^3/uL (2.0-7.7)
--- NOTE | 2024-09-01 13:17 | PCM.HP.STD ---
HPI - General General Date of Admission: 09/01/24 Date of Service: 09/01/24 Chief Complaint: Worsening shortness of breath HPI Narrative DENNIS WALSH, is a 73 F who presented to [facility] ED on 09/01/2024 with worsening shortness of breath. Patient has known history of COPD, follows with pulmonology here. She saw Laura James in the office today who noted that patient had increased work of breathing and wheezing on exam, and she was sent to the ED for further evaluation. Patient had appropriate oxygen saturations on home 2 L nasal cannula but had significant wheezing on exam. Labs notable for WBC count 19. Chest x-ray was nonacute. Was given a breathing treatment and IV steroids with mild improvement but remained dyspneic, so hospitalist was contacted for admission. I saw the patient at bedside in the ED. Patient was mildly fatigued appearing but otherwise breathing comfortably on 2 L nasal cannula, sitting back comfortably in bed and in no acute distress. She did have mild to moderate wheezing noted in bilateral mid to upper lung zones. Noted that she did feel somewhat better after the breathing treatment. She denied any fevers or chills currently. Denied any cough or sputum production. No other acute concerns at this time. [facility] Medical History (Updated 09/01/24 @ 14:14 by Celina Jeffers) Anxiety Depression Hypothyroidism Smoker On home oxygen therapy Coronary artery disease Hypertension DVT (deep venous thrombosis) Fibroma of right ovary Pulmonary embolism History of Parkinson's disease Acute respiratory failure with hypoxia COPD exacerbation Pneumonia due to COVID-19 virus COPD (chronic obstructive pulmonary disease) Home Medications ?Medication ?Instructions ?Recorded ?Last Taken ?Type apixaban 5 mg tablet 5 mg PO BID blood thinner 03/19/19 09/01/24 History atorvastatin 40 mg tablet 40 mg PO DAILY cholestrol 03/19/19 09/01/24 History sertraline 100 mg tablet 200 mg PO DAILY 03/19/19 09/01/24 History ipratropium 0.5 mg-albuterol 3 mg 3 ml inhalation Q6H PRN shortness 02/13/21 Unknown Rx (2.5 mg base)/3 mL nebulization of breath or wheezing #180 mL soln alprazolam 0.5 mg tablet 0.5 mg PO BID anxiety 08/14/21 09/01/24 History ibuprofen 600 mg tablet 600 mg PO Q8H PRN Pain 08/14/21 08/31/24 History budesonide 1 mg/2 mL suspension 1 mg (2 mL) inhalation BID #60 mL 11/28/21 Unknown Rx for nebulization primidone 50 mg tablet 100 mg PO BID tremors 11/28/21 09/01/24 History topiramate 50 mg tablet 50 mg PO DAILY 08/06/22 09/01/24 History albuterol sulfate 90 mcg/actuation 2 puff inhalation Q4H PRN 07/26/23 Unknown Rx aerosol inhaler shortness of breath or wheezing #8.5 grams gabapentin 100 mg capsule 100 mg PO DAILY 07/26/23 08/31/24 History isosorbide mononitrate 60 mg 60 mg PO DAILY heart 07/26/23 09/01/24 History tablet,extended release 24 hr trazodone 50 mg tablet 50 mg PO QHS PRN sleep 07/26/23 Unknown History acetaminophen 500 mg tablet 1,000 mg PO Q6H PRN back pain 09/01/24 09/01/24 History levothyroxine 100 mcg tablet 100 mcg PO DAILY THYROID 09/01/24 09/01/24 History Allergy/AdvReac Type Severity Reaction Status Date / Time No Known Allergies Allergy Verified 09/01/24 10:21 Family History Other No pertinent family history Surgical History History of bladder surgery History of hysterectomy Social History household members: spouse current occupational status: retired current occupation: former maid housekeeper pets and animals: No Smoking Status: Current every day smoker tobacco type: cigarettes Tobacco: How many years used: 50 Electronic Cigarette Use: not used second hand exposure: No alcohol intake: former substance use type: does not use caffeine: Yes Type: coffee Number of servings: 2 what type of physical activity do you participate in: walking frequency: 3-4 times per week seatbelt use: always ROS Constitutional Constitutional: Reports fatigue; Denies chills, fever(s) or weakness Eyes Eyes: Denies change in vision Cardiovascular Cardiovascular: Reports dyspnea on exertion; Denies chest pain, edema or lightheadedness Respiratory/Chest Respiratory/Chest: Reports cough, shortness of breath at rest, shortness of breath with exertion and wheezing; Denies productive cough Gastrointestinal Gastrointestinal: Denies abdominal pain, constipation, diarrhea, nausea or vomiting Musculoskeletal Musculoskeletal: Denies arthralgias or myalgias Vital Signs Vital Signs Vital Signs: 09/01/24 10:21 09/01/24 11:05 09/01/24 11:24 Temperature 96.9 F L Temperature Source Temporal Pulse Rate 76 69 Respiratory Rate 22 H 22 H Respiratory Effort Respiratory Pattern Tachypnea Blood Pressure 96/45 L Blood Pressure Mean 62 Pulse Ox 99 Oxygen Delivery Method Nasal Cannula Nasal Cannula Oxygen Flow Rate (L/min) 4 2 09/01/24 11:24 09/01/24 12:14 09/01/24 12:46 Temperature Temperature Source Pulse Rate 79 75 Respiratory Rate 21 H 14 Respiratory Effort Short of Breath Respiratory Pattern Tachypnea Blood Pressure 112/55 L Blood Pressure Mean 74 Pulse Ox 96 93 Oxygen Delivery Method Nasal Cannula Nasal Cannula Room Air Oxygen Flow Rate (L/min) 2 2 09/01/24 13:00 Temperature Temperature Source Pulse Rate Respiratory Rate Respiratory Effort Respiratory Pattern Blood Pressure Blood Pressure Mean Pulse Ox 93 Oxygen Delivery Method Room Air Oxygen Flow Rate (L/min) Weight Weight: 79.7 kg Body Mass Index (BMI) 30.1 Physical Exam Const alert, oriented x3, no apparent distress and average body habitus Constitutional Narrative: Elderly female, overweight, mildly fatigued appearing but otherwise sitting back comfortably in bed, conversing normally, in no acute distress. General Appearance: cooperative and comfortable HEENT normocephalic, head/scalp atraumatic, hearing grossly normal bilaterally, nasal mucous membranes and turbinates normal and moist oral mucous membranes Eyes PERRL, EOMs intact bilaterally and conjunctivae normal Neck full ROM Chest inspection of chest normal Resp normal respiratory effort and no use of accessory muscles Resp Narrative: Breathing comfortably on 2 L nasal cannula at rest. Mild to moderate wheezing noted bilaterally with mildly diminished breath sounds, otherwise no crackles noted. Cardio regular rate, regular rhythm, no murmurs and peripheral pulses 2+ throughout GI normal to inspection, nondistended, normoactive bowel sounds, soft to palpation, non-tender and non-distended Back/Spine normal ROM Extremity normal to inspection, full ROM and no pedal edema Skin no rashes or lesions noted Neuro moves all extremities and no focal motor deficits Speech: speech normal Psych mental status grossly normal Results Lab / Micro Data 09/01/24 11:45 09/01/24 11:45 Labs: Laboratory Results - last 24 hr 09/01/24 11:45: WBC 19.7 H, RBC 3.19 L, Hgb 9.8 L, Hct 28.8 L, MCV 90.3, MCH 30.7, MCHC 34.0, RDW Std Deviation 49.9 H, RDW Coeff of Corrina 15.0 H, Plt Count 106 L, MPV 11.5, Neut % (Auto) Not Reportable, Absolute Neuts (auto) 14.4 H, Absolute Lymphs (auto) 2.36, Total Counted 100, Neutrophils % (Manual) 72 H, Band Neutrophils % 1, Lymphocytes % (Manual) 12 L, Monocytes % (Manual) 12 H, Metamyelocytes % 2 H, Myelocytes % 1 H, Diff Path Review May foll, Platelet Estimate SLT DEC, Polychromasia 1+, Tear Drop Cells 1+, Ovalocytes 1+, Acanthocytes (Spur) 1+, Sodium 138, Potassium 4.1, Chloride 109 H, Carbon Dioxide 19.5 L, Anion Gap 10, BUN 17, Creatinine 0.62 L, Estim Creat Clear Calc 63.97, Est GFR (MDRD) Non-Af 94, BUN/Creatinine Ratio 26.6 H, Glucose 119 H, Calcium 8.8, Troponin T High Sens 8 Micro: Microbiology 09/01/24 12:12 Mucosa - Nose SARS-CoV-2, Influenza & RSV (PCR) - Final Rhythm Strip Rhythm Strip: Sinus Rhythm Rate: 80 Ectopy: None Imaging Radiology Impression Chest X-Ray 09/01/24 10:39 IMPRESSION: No acute cardiopulmonary process. Reading Location: [facility] Assessment & Plan Assessment/Plan (1) COPD with acute exacerbation: PLAN: Plan Patient is a 73-year-old female who presented to [facility] on 09/01/2024 with worsening shortness of breath. 1. Acute exacerbation of COPD with concern for community-acquired pneumonia in setting of chronic hypoxic respiratory failure ? Admit under inpatient status to PCU. Follows with outpatient pulmonology, saw them in the office on 09/01 and sent to the ED for further evaluation. On home 2 L nasal cannula but with significant wheezing on exam. Chest x-ray unremarkable. WBC count 19. However, procalcitonin normal, afebrile and infectious workup negative to this point. Still, will empirically treat with IV antibiotics for now. Will treat with IV steroids and scheduled DuoNebs for COPD exacerbation. Monitor. 2. Tobacco use disorder ? Current smoker, smokes about half pack per day. NRT available as needed while inpatient. Chronic medical conditions: ? Anxiety/depression: OARRS reviewed and patient has consistently been filling alprazolam. Continue home sertraline and alprazolam. ? Essential tremors: Continue home primidone. ? Chronic normocytic anemia: Hemoglobin 9.8 on admit. Baseline appears to be around 10-11. Will send iron studies, B12 and folate for the sake of completeness. ? 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 Will continue Eliquis at this time. ? Hypertension: Continue home nitrate. ? Hyperlipidemia: Continue home statin. ? Hypothyroidism: Continue home Synthroid. DVT prophylaxis: Not indicated, on Eliquis CODE STATUS: DNR CCA, DNI Expected disposition: Home, 2 to 3 days Total clinical time spent by myself addressing the patient's medical issues, reviewing all the data, and collaborating with patient's care team: 75 minutes. Charges/Coding Visit Charges Inpatient E&M: 83632 Init Hosp L3
[2024-09-01] MEDS: Piperacil/Tazobactam 3.375 GM in 0.9% Normal Saline (50mL MB+) 50 ML IV (13:46)
[2024-09-01 15:07] LABS: Troponin T High Sens 2 HR 8 ng/L (<=14)
[2024-09-01 17:11] LABS: Procalcitonin 0.08 ng/mL (<=0.10)
[2024-09-01] MEDS: Ceftriaxone 1 GM/50 ML BAG IV (18:34)
[2024-09-01] MEDS: 0.9% Normal Saline (100mL Bag) 100 ML IV (18:34)
[2024-09-01] MEDS: 0.9% Saline Lock 10 ML Syringe IV ×2 (18:34→20:45)
[2024-09-01] MEDS: guaiFENesin 1,200 MG Tablet 1200 MG PO (18:35)
[2024-09-01] MEDS: Azithromycin 500 MG in 0.9% Normal Saline (250mL Bag) 250 ML 255 MG IV (19:16)
[2024-09-01 19:30] LABS: Ferritin 83 ng/mL (22-378); Vitamin B12 631 pg/mL (180-914)
[2024-09-01 19:53] LABS: Iron 37 ug/dL (50-170); Iron Binding Capacity,Total 276 ug/dL (250-450); Iron Binding Capacity,Unsat 239 ug/dL (228-428)
[2024-09-01] MEDS: Primidone 50 MG Tablet 100 MG PO (20:44)
[2024-09-01] MEDS: traZODone 50 MG Tablet PO (20:45)
[2024-09-01] MEDS: Methylprednisolone Sod Succ 40 MG/ML VIAL IV (20:45)
[2024-09-01] MEDS: APIXABAN 5 MG TABLET PO (20:45)
[2024-09-01] MEDS: Acetaminophen 325 MG Tablet 650 MG PO (20:46)
[2024-09-01] MEDS: ALPRAZolam 0.5 MG Tablet PO (20:51)
[2024-09-01] MEDS: Budesonide Respules 0.5 MG/2 ML AMPUL.NEB. INHALATION (20:55)
[2024-09-02] VITALS (9 sets, daily range): BP systolic 114–136; BP diastolic 53–70; PULSE 74–96; RESP 20–22; TEMP 36.3–36.9; O2SAT 88–98
[2024-09-02 04:35] LABS: Hematocrit 26.8 % (37-47); Hemoglobin 9.1 g/dL (12.0-15.0); Mean Corpuscular Hgb 30.7 pg (27.0-32.0); Mean Corpuscular Volume 90.5 fL (81-99); Mean Platelet Vol. 12.1 fl (6.2-12.0); Platelet Count 111 K/mm3 (150-450); RBC Distribution Width CV 14.8 % (11.6-14.6); RBC Distribution Width SD 48.4 fl (35.1-43.9); Red Blood Count 2.96 M/mm3 (4.2-5.4); White Blood Count 12.7 K/mm3 (4.4-11.0)
[2024-09-02 05:22] LABS: Scan Indicated on CBC? Y/N NO
[2024-09-02 05:30] LABS: Anion Gap 11 (5-15); BUN 13 mg/dL (4-19); BUN/Creat Ratio 21.8 RATIO (10-20); Calcium,Total 8.8 mg/dL (7.6-11.0); Carbon Dioxide 18.3 mmol/L (21.0-32.0); Chloride 113 mmol/L (98-108); Creatinine, Serum 0.62 mg/dL (0.70-1.20); EST Glomerular Filtration Rate 94 (>60); Estimated Creatinine Clearance 62.66 ml/min (50-250); Glucose 135 mg/dL (70-99); Potassium 4.2 mmol/L (3.3-5.1); Sodium Level 142 mmol/L (133-145)
[2024-09-02] MEDS: Methylprednisolone Sod Succ 40 MG/ML VIAL IV ×2 (05:40→13:53)
[2024-09-02] MEDS: Acetaminophen 325 MG Tablet 650 MG PO (05:40)
[2024-09-02] MEDS: Levothyroxine 100 MCG Tablet PO (05:40)
[2024-09-02] MEDS: 0.9% Saline Lock 10 ML Syringe IV (05:41)
[2024-09-02] MEDS: guaiFENesin 1,200 MG Tablet 1200 MG PO (05:45)
[2024-09-02] MEDS: Budesonide Respules 0.5 MG/2 ML AMPUL.NEB. INHALATION (08:06)
[2024-09-02] MEDS: Ipratropium/Albuterol Sulfate 3 ML AMPUL.NEB INHALATION ×2 (08:06→11:31)
[2024-09-02] MEDS: Primidone 50 MG Tablet 100 MG PO (08:58)
[2024-09-02] MEDS: APIXABAN 5 MG TABLET PO (08:58)
[2024-09-02] MEDS: Atorvastatin Calcium 40 MG Tablet PO (08:58)
[2024-09-02] MEDS: Sertraline 100 MG Tablet 200 MG PO (08:59)
[2024-09-02] MEDS: Topiramate 50 MG Tablet PO (08:59)
[2024-09-02] MEDS: ALPRAZolam 0.5 MG Tablet PO (09:05)
[2024-09-02] MEDS: Gabapentin 100 MG Capsule PO (09:05)
[2024-09-02] MEDS: Azithromycin 500 MG in 0.9% Normal Saline (250mL Bag) 250 ML 255 MG IV (09:39)
--- NOTE | 2024-09-02 09:50 | CASEMGMT ---
PETRONA MONTALVO Assessment: Face to Face with pt for initial transition planning/care coordination assessment. PETRONA MONTALVO introduced self and role at [facility], pt voices understanding and consents to assessment. Pt is A&O x4 and answers all questions appropriately at this time. Pt sitting up in chair in no distress with oxygen on. Care providers, pharmacy, and demographics verified/updated. Admitting Dx: COPD exac PCP:Rula Specialists:Gregg, pulleandro; Cardio in [place]; Neuro in [place] Preferred Pharmacy: [facility] Insurance: [employer] [facility] Prescription Benefit: yes LNOK: Madelin Arnold, dtr Living Arrangements: Pt lives alone in a single story home with a ramp to enter. Pt reports she is I in ADL/IADLs and denies concerns at home. Transportation: Pt drives self and denies concerns with transportation. DME:pox, oxygen through [employer], cane, rollator, 4 prong cane HHC/SNF: Denies hx of Pt states no concerns with going home at time of dc. Pt has a portable tank with her in the hospital. Pt states she feels she did well with therapy. Spoke with PT today and discussed pt therapy evals with her, she denies need currently for any OP therapy but is aware that should she change her mind, she may notify her PCP once home. Pt states she only wears oxygen at night. Green sheet on chart should pt need an increase in oxygen rx. Pt states no further concerns/needs. CM to follow. Advised pt to ask CM if any further questions/concerns/needs arise, voices understanding. Pt Goal: Home Plan: Home, follow for increase in O2 rx Dee RUSS CM
[2024-09-02] MEDS: Ceftriaxone 1 GM/50 ML BAG IV (11:34)
[2024-09-02 12:03] LABS: Hematocrit 27.6 % (37-47); Hemoglobin 9.5 g/dL (12.0-15.0)
--- NOTE | 2024-09-02 13:57 | DCINST_ITS ---
Discharge Instructions Diet Discharge Diet: No restrictions DC O2, CPAP, BIPAP needs Home O2 Discharge instructions: No Dressing / Incision Discharge Activity: Return to Normal Activity Dressing / Incision Call your doctor if you observe: Fever of 101 or Higher, Shortness of breath, Dizziness, Fainting spells, Swelling in the ankles, Chest pain and Increased palpitations (irregular heartbeat) Follow Up Care Test Results: Test results from this visit will be discussed in further detail at your follow- up appointment, if applicable. Discharge Plan Admission Admit Date/Time: 09/01/24 13:20 Attending Provider: Ramon Luevano Primary Care Provider: Gelacio Horta Consulting Providers: James Piper Additional Instructions / Restrictions: Follow-up with your PCP in 3 to 5 days to monitor your oxygen requirements. Discharge Orders/Prescriptions Prescriptions: New levofloxacin 500 mg tablet 500 mg PO DAILY Qty: 7 0RF prednisone 20 mg tablet 40 mg PO DAILY Qty: 14 0RF Continued ipratropium-albuterol 0.5 mg-3 mg(2.5 mg base)/3 mL solution for nebulization 3 ml inhalation Q6H PRN (Reason: shortness of breath or wheezing) Qty: 180 6RF ibuprofen 600 mg tablet 600 mg PO Q8H PRN (Reason: Pain) alprazolam 0.5 mg tablet 0.5 mg PO BID primidone 50 mg tablet 100 mg PO BID budesonide 1 mg/2 mL suspension for nebulization 1 mg inhalation BID Qty: 60 6RF Patient Comments: PT HAS BEEN USING PRN topiramate 50 mg tablet 50 mg PO DAILY trazodone 50 mg tablet 50 mg PO QHS PRN (Reason: sleep) isosorbide mononitrate 60 mg tablet extended release 24 hr 60 mg PO DAILY gabapentin 100 mg capsule 100 mg PO DAILY albuterol sulfate 90 mcg/actuation HFA aerosol inhaler 2 puff inhalation Q4H PRN (Reason: shortness of breath or wheezing) Qty: 8.5 11RF Patient Comments: PT STATES SHES BEEN USING 3 PUFFS WHEN SHE USES. atorvastatin 40 MG tablet 40 mg PO DAILY apixaban 5 MG tablet 5 mg PO BID sertraline 100 MG tablet 200 mg PO DAILY acetaminophen 500 mg tablet 1,000 mg PO Q6H PRN (Reason: back pain) levothyroxine 100 mcg tablet 100 mcg PO DAILY Referrals / Follow Up: Gelacio Horta MD [Primary Care Provider] - Within 1 Week Disposition Disposition (needs filled in before D/C Order can be placed): Home, Self Care
--- NOTE | 2024-09-02 14:02 | DS.PCM_ITS ---
Providers Date of Admission: 09/01/24 Primary Care Physician: Dr. Gelacio Horta MD Reason For Visit: COPD EXACERBATION Diagnosis Discharge Diagnosis (1) COPD with acute exacerbation: Status: Chronic Code(s): J44.1 - Chronic obstructive pulmonary disease with (acute) exacerbation Medications at Discharge Home Medications apixaban 5 mg tablet 5 mg PO BID blood thinner 03/19/19 atorvastatin 40 mg tablet 40 mg PO DAILY cholestrol 03/19/19 sertraline 100 mg tablet 200 mg PO DAILY mental health 03/19/19 ipratropium 0.5 mg-albuterol 3 mg (2.5 mg base)/3 mL nebulization soln 3 ml inhalation Q6H PRN shortness of breath or wheezing #180 mL 02/13/21 alprazolam 0.5 mg tablet 0.5 mg PO BID anxiety 08/14/21 ibuprofen 600 mg tablet 600 mg PO Q8H PRN Pain 08/14/21 budesonide 1 mg/2 mL suspension for nebulization 1 mg (2 mL) inhalation BID breathing #60 mL 11/28/21 primidone 50 mg tablet 100 mg PO BID tremors 11/28/21 topiramate 50 mg tablet 50 mg PO DAILY seizures 08/06/22 albuterol sulfate 90 mcg/actuation aerosol inhaler 2 puff inhalation Q4H PRN shortness of breath or wheezing #8.5 grams 07/26/23 gabapentin 100 mg capsule 100 mg PO DAILY nerve pain 07/26/23 isosorbide mononitrate 60 mg tablet,extended release 24 hr 60 mg PO DAILY heart 07/26/23 trazodone 50 mg tablet 50 mg PO QHS PRN sleep 07/26/23 acetaminophen 500 mg tablet 1,000 mg PO Q6H PRN back pain 09/01/24 levothyroxine 100 mcg tablet 100 mcg PO DAILY THYROID 09/01/24 levofloxacin 500 mg tablet 500 mg PO DAILY #7 tabs 09/02/24 prednisone 20 mg tablet 40 mg (2 x 20 mg) PO DAILY #14 tabs 09/02/24 Hospital Course Operations None Procedures None Summary of Care Provided Minutes Spent on Discharge: 33 Hospital Course: Per HPI: DENNIS WALSH, is a 73 F who presented to [facility] ED on 09/01/2024 with worsening shortness of breath. Patient has known history of COPD, follows with pulmonology here. She saw Laura James in the office today who noted that patient had increased work of breathing and wheezing on exam, and she was sent to the ED for further evaluation. Patient had appropriate oxygen saturations on home 2 L nasal cannula but had significant wheezing on exam. Labs notable for WBC count 19. Chest x-ray was nonacute. Was given a breathing treatment and IV steroids with mild improvement but remained dyspneic, so hospitalist was contacted for admission. I saw the patient at bedside in the ED. Patient was mildly fatigued appearing but otherwise breathing comfortably on 2 L nasal cannula, sitting back comfortably in bed and in no acute distress. She did have mild to moderate wheezing noted in bilateral mid to upper lung zones. Noted that she did feel somewhat better after the breathing treatment. She denied any fevers or chills currently. Denied any cough or sputum production. No other acute concerns at this time. Hospital Course: 1. Acute on chronic hypoxic respiratory insufficiency in the setting of COPD exacerbation with possible community-acquired pneumonia?73-year-old female presented to the hospital with an elevated white count increasing shortness of breath. She wears 2 L nasal cannula at night but was now requiring 2 L nasal cannula at rest as well. She was started on steroids and antibiotics and has significant improvement in less than 24 hours. I discussed with her the potential for coming off of oxygen however she would prefer to go home today on oxygen. She expressed understanding of the risks and benefits of going home and would still like to go home today. Will continue with steroids for another week at 40 mg p.o. daily and will continue with Levaquin 500 mg p.o. daily for another 7 days. I recommend outpatient follow-up with her PCP. Prior to discharge she was down to about 1 L nasal cannula both at rest and with ambulation. 2. Essential hypertension, hyperlipidemia, hypothyroidism, history of VTE, essential tremor, anxiety, depression, chronic normocytic anemia are all chronic medical conditions which complicate her care. Her home medications were continued where appropriate Physical Exam Narrative General: Alert, Oriented x3, Cooperative, No apparent distress HEENT: Atraumatic, PERRLA, EOMI, Normocephalic Oral: Moist Mucosa Neck: Supple, No JVD Lungs: Diminished, Normal air movement, No rhonchi, scattered wheeze, No rales Cardiovascular: Regular rate, Regular Rhythm, Normal S1, Normal S2, No murmurs Abdomen: Soft, Non Tender, Non-Distended, No Hepato-splenomegaly Extremities: No edema, Capillary Refill Less than 3 Seconds Skin: No rashes, No breakdown Musculoskeletal: No Tenderness to Palpation of Joints or Extremities Neurological: No focal neurological deficits, Motor Exam 5/5 strength throughout, Sensory exam intact to light touch and pain, chronic tremor Psych/Mental Status: Normal Affect, Appropriate Weight / BMI Weight Weight: 168 lb 6.931 oz Body Mass Index (BMI) 28.9 ABG / Lab / Microbiology Data 09/02/24 11:53 09/02/24 03:57 Laboratory: Laboratory Results - last 24 hr 09/01/24 11:45: Iron 37 L, TIBC 276, Iron Saturation 13.0, Unsaturated IBC 239, Ferritin 83, Vitamin B12 631 09/01/24 14:24: Troponin T Hi Sens 2 Hr 8, Procalcitonin 0.08 09/02/24 03:57: WBC 12.7 H, RBC 2.96 L, Hgb 9.1 L, Hct 26.8 L, MCV 90.5, MCH 30.7, MCHC 34.0, RDW Std Deviation 48.4 H, RDW Coeff of Corrina 14.8 H, Plt Count 111 L, MPV 12.1 H, Sodium 142, Potassium 4.2, Chloride 113 H, Carbon Dioxide 18.3 L, Anion Gap 11, BUN 13, Creatinine 0.62 L, Estim Creat Clear Calc 62.66, Est GFR (MDRD) Non-Af 94, BUN/Creatinine Ratio 21.8 H, Glucose 135 H, Calcium 8.8 09/02/24 11:53: Hgb 9.5 L, Hct 27.6 L Microbiology: Microbiology 09/01/24 15:10 Mucosa - Nose Respiratory Panel (PCR) - Final 09/01/24 14:28 Urine, Clean Catch Legionella Antigen - Final 09/01/24 14:28 Urine, Clean Catch Streptococcus pneumoniae Antigen (M - Final 09/01/24 12:12 Mucosa - Nose SARS-CoV-2, Influenza & RSV (PCR) - Final D/C Instructions Discharge Diet: No restrictions Call your doctor if you observe: Fever of 101 or Higher, Shortness of breath, Dizziness, Fainting spells, Swelling in the ankles, Chest pain and Increased palpitations (irregular heartbeat) DC O2, CPAP, BIPAP Needs Home O2 Discharge instructions: No Meaningful Use Info Meaningful Use Meaningful Use Diagnoses (Choose all that apply): None applicable Ischemic Stroke Statin Dosing Therapy Reference: STATIN DOSE THERAPY REFERENCE: * Patients > 75 years receive moderate or high dose statin therapy. * Patients 75 years or YOUNGER should receive HIGH intensity statin dose unless contraindicated. You will be required to document reason for non-treatment if statin daily dose does not meet guidelines. HIGH DOSE STATIN THERAPY DAILY Atorvastatin > than or = to 40 mg Rosuvastatin > than or = to 20 mg Amlodipine + Atorvastatin > than or = to 2.5/40 mg Ezetimibe + Simvastatin 10/80 mg Simvastatin 80mg Discharge Plan Admission Admit Date/Time: 09/01/24 13:20 Attending Provider: Ramon Luevano Primary Care Provider: Gelacio Horta Consulting Providers: James Piper Instructions Additional Instructions / Restrictions: Follow-up with your PCP in 3 to 5 days to monitor your oxygen requirements. Discharge Orders/Prescriptions Prescriptions: New levofloxacin 500 mg tablet 500 mg PO DAILY Qty: 7 0RF prednisone 20 mg tablet 40 mg PO DAILY Qty: 14 0RF Continued ipratropium-albuterol 0.5 mg-3 mg(2.5 mg base)/3 mL solution for nebulization 3 ml inhalation Q6H PRN (Reason: shortness of breath or wheezing) Qty: 180 6RF ibuprofen 600 mg tablet 600 mg PO Q8H PRN (Reason: Pain) alprazolam 0.5 mg tablet 0.5 mg PO BID primidone 50 mg tablet 100 mg PO BID budesonide 1 mg/2 mL suspension for nebulization 1 mg inhalation BID Qty: 60 6RF Patient Comments: PT HAS BEEN USING PRN topiramate 50 mg tablet 50 mg PO DAILY trazodone 50 mg tablet 50 mg PO QHS PRN (Reason: sleep) isosorbide mononitrate 60 mg tablet extended release 24 hr 60 mg PO DAILY gabapentin 100 mg capsule 100 mg PO DAILY albuterol sulfate 90 mcg/actuation HFA aerosol inhaler 2 puff inhalation Q4H PRN (Reason: shortness of breath or wheezing) Qty: 8.5 11RF Patient Comments: PT STATES SHES BEEN USING 3 PUFFS WHEN SHE USES. atorvastatin 40 MG tablet 40 mg PO DAILY apixaban 5 MG tablet 5 mg PO BID sertraline 100 MG tablet 200 mg PO DAILY acetaminophen 500 mg tablet 1,000 mg PO Q6H PRN (Reason: back pain) levothyroxine 100 mcg tablet 100 mcg PO DAILY Referrals / Follow Up: Gelacio Horta MD [Primary Care Provider] - Within 1 Week Disposition Disposition (needs filled in before D/C Order can be placed): Home, Self Care Charges/Coding Visit Charges Inpatient E&M: 60388 Disch Hosp >30min
--- NOTE | 2024-09-02 15:01 | NURSING ---
Updated prescription faxed to [facility] [place].
[2024-09-03 14:07] LABS: Folate, RBC (Hct) Test 27.8 % (34.0-46.6); Folates, RBC Test 1234 ng/mL (>498)
[2024-09-28 14:06] LABS: Pathologist Review Reviewed
== END 2024-09-02 15:23 | disposition home or self-care (01) | DRG 192 ==
LOC: ED 13:07 → PCU 13:38
PROVIDERS: Admitting Provider Hospitalist; Emergency Provider Emergency Medicine; PCP Family Medicine; Referring Provider Hospitalist; Visit Provider Family Medicine
DX: J44.1 Chronic obstructive pulmonary disease with (acute) exacerbation (principal); D64.9 Anemia, unspecified; Z66 Do not resuscitate; J44.0 Chronic obstructive pulmonary disease with (acute) lower respiratory infection; E03.9 Hypothyroidism, unspecified; I10 Essential (primary) hypertension; F32.A Depression, unspecified; I25.10 Atherosclerotic heart disease of native coronary artery without angina pectoris; G25.0 Essential tremor; F17.210 Nicotine dependence, cigarettes, uncomplicated; F41.9 Anxiety disorder, unspecified; E78.5 Hyperlipidemia, unspecified; Z79.01 Long term (current) use of anticoagulants; Z90.710 Acquired absence of both cervix and uterus; Z79.02 Long term (current) use of antithrombotics/antiplatelets; Z79.1 Long term (current) use of non-steroidal anti-inflammatories (NSAID); Z79.899 Other long term (current) drug therapy; Z79.51 Long term (current) use of inhaled steroids; Z79.890 Hormone replacement therapy; Z86.718 Personal history of other venous thrombosis and embolism
CPT/HCPCS: 36415; 71045; 80048; 82607; 82728; 82747; 83540; 83550; 84145; 84484; 85014; 85018; 85025; 85027; 87449; 87631; 87633; 93005; 94640; 94668; 97162; 97166; 99252; 99285; 99406; A4216; G0463

== ENCOUNTER → 2024-10-02 | Outpatient (CLI) | payer MEDICARE, SELFPAY ==
--- NOTE | 2024-10-02 07:12 | CT_ITS ---
PROCEDURE: SPINE THORACIC WITHOUT CONTRAS REASON FOR EXAM: WEDGE COMPRESSION FRACTURE OF T5-T6 VERTEBRA TECHNIQUE: Thoracic spine CT without contrast. Coronal and Sagittal reconstruction series were provided. One or more dose reduction techniques were used (e.g., Automated exposure control, adjustment of the mA and/or kV according to patient size, use of iterative reconstruction technique). RADIATION DOSE SUMMARY: CTDlvol: 19.05 mGy DLP: 681.9 mGycm COMPARISON: None FINDINGS: Alignment: Bones: Normal thoracic vertebral heights. No acute fracture. Multilevel degenerative disc disease. No suspicious lytic or blastic lesion. Soft Tissues: Atherosclerotic calcification of the aortic arch and descending thoracic aorta. Other: Coronary artery calcification. CT/Spine Thoracic without Contras IMPRESSION: NO ACUTE THORACIC FRACTURE. DEGENERATIVE CHANGES. Reading Location: [place] [id number]
== END | disposition home or self-care (01) ==
LOC: CT 07:11
PROVIDERS: PCP Family Medicine; Referring Provider Physician Assistant Surgical; Visit Provider Physician Assistant Surgical
DX: S22.050A Wedge compression fracture of T5-T6 vertebra, initial encounter for closed fracture (principal); X58.XXXA Exposure to other specified factors, initial encounter
CPT/HCPCS: 72128

== ENCOUNTER 2025-03-12 09:54 | Emergency (ER) | payer MEDICARE, SELFPAY ==
--- OUTSIDE RECORDS SUMMARY | 2025-03-08 09:17 | XMS RPT_ITS ---
Author Name Auto Generated Organization OHIP Support Name Relationship Address Phone POLEN DRE Next of Kin Unknown [phone] JASSON, WILMAR Next of Kin Unknown [phone] LIENLAM BRAD Next of Kin Unknown [phone] POLEN, DRE Next of Kin Unknown [phone] JASSON, WILMAR Next of Kin Unknown [phone] BRAD NICHOLSON Next of Kin Unknown [phone] POLEN, DRE Next of Kin Unknown [phone] JASSON, WILMAR Next of Kin Unknown [phone] BHARAT BRAD Next of Kin Unknown [phone] POLEN, DRE Next of Kin Unknown [phone] JASSON, WILMAR Next of Kin Unknown [phone] LIENLAM BRAD Next of Kin Unknown [phone] POLEN, DRE Next of Kin Unknown [phone] JASSON, WILMAR Next of Kin Unknown [phone] LIENLAM BRAD Next of Kin Unknown [phone] POLEN, DRE Next of Kin Unknown [phone] JASSON, WILMAR Next of Kin Unknown [phone] BRAD NICHOLSON Next of Kin Unknown [phone] POLEN, DRE Next of Kin Unknown [phone] JASSON, WILMAR Next of Kin Unknown [phone] BRAD NICHOLSON Next of Kin Unknown [phone] POLEN, DRE Next of Kin Unknown + ~(330 JASSON, WILMAR Next of Kin Unknown [phone] KATHIEBRAD ZUÑIGA Next of Kin Unknown [phone] POLEN, DRE Next of Kin Unknown + ~([phone] JASSON, WILMAR Next of Kin Unknown [phone] KATHIEZARA BRAD Next of Kin Unknown [phone] POLEN, DRE Next of Kin Unknown + ~(330 JASSON, WILMAR Next of Kin Unknown [phone] BRAD NICHOLSON Next of Kin Unknown [phone] POLEN, DRE Next of Kin Unknown + ~(330 JASSON, WILMAR Next of Kin Unknown [phone] BRAD NICHOLSON Next of Kin Unknown [phone] POLEN, DRE Next of Kin Unknown + ~(330 JASSON, WILMAR Next of Kin Unknown [phone] BRAD NICHOLSON Next of Kin Unknown [phone] POLEN, DRE Next of Kin Unknown + ~(330 JASSON, WILMAR Next of Kin Unknown [phone] KATHIEZARA BRAD Next of Kin Unknown [phone] POLEN, DRE Next of Kin Unknown + ~(330 JASSON, WILMAR Next of Kin Unknown [phone] LIENBRAD FRITZ Next of Kin Unknown [phone] POLEN, DRE Next of Kin Unknown + ~(330 JASSON, WILMAR Next of Kin Unknown [phone] LIENLAM BRAD Next of Kin Unknown [phone] Care Team Providers Care Digester Cook Name Role Phone ALFONSO COLES Attending Unavailable ALFONSO COLES Primary Care Unavailable ALFONSO COLES Attending Unavailable ALFONSO COLES Primary Care Unavailable ALFONSO COLES Attending Unavailable ALFONSO COLES Primary Care Unavailable SHARYN, ALFONSO Attending Unavailable SHARYN, ALFONSO Primary Care Unavailable SHARYN, ALFONSO Attending Unavailable SHARYN, ALFONSO Primary Care Unavailable SHARYN, ALFONSO Attending Unavailable SHARYN, ALFONSO Primary Care Unavailable SHARYN, ALFONSO Attending Unavailable SHARYN, ALFONSO Primary Care Unavailable SHARYN, ALFONSO Attending Unavailable SHARYN, ALFONSO Referring Unavailable SHARYN, ALFONSO Primary Care Unavailable BRIDENTHAL, WILMAR Attending Unavailable BRIDENTHAL, WILMAR Referring Unavailable SHARYN, ALFONSO Primary Care Unavailable BRIDENTHAL, WILMAR Attending Unavailable BRIDENTHAL, WILMAR Referring Unavailable SHARYN, ALFONSO Primary Care Unavailable SWAPNA LORENZO Attending Unavailable BRIDENTHAL, WILMAR Referring Unavailable SHARYN, ALFONSO Primary Care Unavailable EVERETT LEE Attending Unavailable SHARYN, ALFONSO Primary Care Unavailable SHARYN, ALFONSO Attending Unavailable SHARYN, ALFONSO Primary Care Unavailable SHARYN, ALFONSO Attending Unavailable SHARYN, ALFONSO Primary Care Unavailable SHARYN, ALFONSO Attending Unavailable SHARYN, ALFONSO Primary Care Unavailable PROBLEMS DATE TYPE CONDITION / CODE ATTENDING STATUS [facility] 03/08/2025 Admitting Diagnosis Occlusion and stenosis of left carotid artery / I65.22(ICD-10) SWAPNA LORENZO [facility] 09/02/2023 Admitting Diagnosis Spinal stenosis, lumbosacral region / M48.07(ICD-10) ALFONSO COLES [facility] 12/21/2022 Admitting Diagnosis Tinea unguium / B35.1(ICD-10) SHARYN ALFONSO [facility] 01/24/2025 Admitting Diagnosis COVID-19 / U07.1(ICD-10) SHARYN ALFONSO [facility] 01/24/2025 Admitting Diagnosis Wheezing / R06.2(ICD-10) SHARYN [facility] 03/03/2024 Admitting Diagnosis Other specified symptoms and signs involving the circulatory and respiratory systems / R09.89(ICD-10) BRIDENTHAL, WILMAR [facility] 10/25/2024 Admitting Diagnosis Anemia, unspecified / D64.9(ICD-10) ALFONSO COLES [facility] 07/05/2024 Admitting Diagnosis Hypothyroidism, unspecified / E03.9(ICD-10) SHARYN, [facility] 07/05/2024 Admitting Diagnosis Chronic respiratory failure with hypoxia (HCC) / J96.11(ICD-10) SHARYN [facility] 04/21/2024 Admitting Diagnosis Other emphysema (HCC) / J43.8(ICD-10) [facility] Admitting Diagnosis Atherosclerotic heart disease of [place] coronary artery with other forms of angina pectoris (HCC) / I25.118(ICD-10) SHARYN [facility] 06/28/2023 Admitting Diagnosis Hyperlipidemia, unspecified / E78.5(ICD-10) [facility] Admitting Diagnosis Essential tremor / G25.0(ICD-10) [facility]22 Admitting Diagnosis Major depressive disorder, recurrent, in partial remission (HCC) / F33.41(ICD-10) [facility] Admitting Diagnosis Atherosclerotic heart disease of [place] coronary artery without angina pectoris / I25.10(ICD-10) EVERETT LEE [facility] 10/12/2024 Admitting Diagnosis Encounter for screening mammogram for malignant neoplasm of breast / Z12.31(ICD-10) [facility] Admitting Diagnosis Hip Pain / [id number]() SHARYN [facility] 04/21/2024 Admitting Diagnosis Nicotine dependence, cigarettes, uncomplicated / F17.210(ICD-10) SHARYN [facility] 03/23/2024 Admitting Diagnosis Bilateral primary osteoarthritis of knee / M17.0(ICD-10) SHARYN [facility] 04/21/2024 Admitting Diagnosis Encounter for general adult medical examination without abnormal findings / Z00.00(ICD-10) SHARYN [facility] 04/21/2024 Admitting Diagnosis Encounter for screening for diabetes mellitus / Z13.1(ICD-10) SHARYN [facility] 03/23/2024 Admitting Diagnosis Knee Pain / [id number]() ALFONSO COLES [facility] 03/23/2024 Admitting Diagnosis Discuss Medications / 876() [facility] Admitting Diagnosis Health Maintenance / 872() [facility]/03[facility]23 Admitting Diagnosis Chronic obstructive pulmonary disease with (acute) exacerbation (HCC) / J44.1(ICD-10) SHARYN [facility] 12/21/2022 Admitting Diagnosis Polyneuropathy, unspecified / G62.9(ICD-10) SHARYN [facility] 03/26/2022 Admitting Diagnosis Anxiety disorder, unspecified / F41.9(ICD-10) SHARYN [facility] PROCEDURES No Procedure Records Found RESULTS 36 Observed: 03/12/2025 3:23 PM Status: COMPLETED Source: [facility] Okay, thank you 36 Observed: 03/12/2025 2:42 PM Status: COMPLETED Source: [facility] I spoke with pt - she went [facility] ED and got an injection I also advised pt about taking 1 gabapentin twice per day- pt started crying and states she needs to tell me something- states her daughter told her to take 5-6 gabapentin at a time twice per day. She did this for 4-5 days and all it did was make her very sleepy. (States her daughter told her she takes 300mg three times per day so it will be ok for her) I told pt that her body is not ready for that much gabapentin and she should only be taking 1 at night - advised her to not take that much ever again. And she agreed and said she will not. Pt is to take 1 gabapentin at night and with the injection she got at the ED she will call me on 03/16/25 and let me know how she is doing with the pain. Will wait for her call 36 Observed: 03/12/2025 1:02 PM Status: COMPLETED Source: [facility] Message released to patient as written. Dr. Coles is the only provider that does hip injections at the office, so this would need to be scheduled with him- he would need to see her and see if he feels this is appropriate. Can increase her Gabapentin to twice a day and see if this helps any. Patient's further questions if applicable: Pt prefers to speak with Afshan, stated she would like a call back, please advise. Were all questions from office addressed or relayed to the patient from encounter: Yes 36 Observed: 03/12/2025 9:28 AM Status: COMPLETED Source: [facility] [employer] [facility] LM to return call- give mess age from Maisha 36 Observed: 03/12/2025 8:18 AM Status: COMPLETED Source: [facility] Dr. Coles is the only provi betsey that does hip injections at the office, so this would need to be scheduled with him- he would need to see her and see if he feels this is appropriate. Can increase her Gabapentin to twice a day and see if this helps any. 36 Observed: 03/12/2025 7:29 AM Status: COMPLETED Source: [facility] S: Patient continues to have right leg/thigh pain, current pain is moderate 7/10. B: Patient has had cortisone injections in the past, patient had been instructed to go to the ER on 03/11/2025 and did not go. A: Patient is seeking an appointment with PCP for a cortisone injection. Nurse explained there isn't any appointments with PCP until 03/22/2025. Patient declined to schedule appointment. R: Patient requests message be sent to the office for follow-up with PCP. Nurse instructed patient if her symptoms get worse, she needs to go to the ER for evaluation. Patient verbalized understanding. 36 Observed: 03/11/2025 3:28 PM Status: COMPLETED Source: [facility] [employer] [facility] S: Patient spoke with HAFSA mcgregor regarding right leg numbness and pain B: Onset of symptoms/concern x 4 days A: Pt complaints of pain and numbness to right leg. States started about 4 days ago. Pain starts in her right hip, radiates to the tips of her toes. Rates current pain at 5/10, currently icing the area. Denies any recent injury. Denies any numbness anywhere else on the right side. States is treating at home with ice, ibuprofen and gabapentin, has been taking more gabapentin than she's supposed to due to severe pain. States has hx of bursitis, states this feels the same, thinks is having a flare up. Does report feeling weak on the same leg. States only gets 2 hours of sleep and then the pain starts up again, has been up all day and all night. R: Pt advised to have someone else drive her to the ER or call for EMS due to the numbness. Pt states her daughter will take her to [facility] now. Patient understands care advice. No further needs at this time. Patient instructed to call back with new or worsening symptoms. Reason for Disposition [1] Numbness (i.e., loss of sensation) of the face, arm / hand, or leg / foot on one side of the body AND [2] sudden onset AND [3] present now Protocols used: Neurologic [id number] 36 Observed: 03/08/2025 1:11 PM Status: COMP LETED Source: [facility] error PROGRESS NOTE Observed: 03/08/2025 9:00 AM Status: COMPLETED Source: [facility] Vascular Surgery Outpatient Consultation Chief Complaint Patient presents with New Patient (ref Wilmar Cruz, RASHIDA) CUSTOMER TRAINER eval for carotid stenosis, CU 01/10/25 Reason for Consult: Left Carotid Stenosis Requesting Physician: Dr. Cruz HISTORY OF PRESENT ILLNESS: The patient is a 74 y.o. female who states she is here for evaluation of carotid stenosis. Pt recently underwent a carotid duplex ordered by her PCP which noted left carotid stenosis 50-69%. Pt denies a known hx of carotid stenosis. She denies any hx of prior stroke or TIA. Denies any episodes of lateralizing weakness, facial droop, aphasia, or unilateral sudden temporary blindness. The patient denies any symptoms of upper extremity claudication or dizziness with upper extremity use. She denies any abdominal pain. Does endorse chronic low back pain Denies any rest pain. Denies any slow or nonhealing sores to feet. She ambulates with a cane for balance. She walks her dog 3 times/day. She denies any leg cramping or fatigue with walking. She endorses overall feeling tired and stressed. She admits to me that her suffered a stroke and had to be placed in a ECF last year. She is grieving the life that they were supposed to have together in longterm. She struggles with anxiety and depression Currently taking the following medications for vascular risk factor modification: Antiplatelet/Anticoagulant: Eliquis Statin: Atorvastatin Smoking Status: Current smoker--working on cessation Past Medical History: Medical History[1] Past Surgical History: Surgical History[2] Current Medications: Prior to Admission medications Medication Sig Start Date End Date Taking? Authorizing Provider acetaminophen (Tylenol) 500 MG tablet Take 500 mg by mouth Nightly. 2 at hs extra strength Historical Provider, albuterol 108 (90 Base) MCG/ACT inhaler INHALE TWO PUFFS BY MOUTH EVERY 6 HOURS NEEDED FOR WHEEZING 01/24/25 Alfonso Coles MD ALPRAZolam (Xanax) 0.5 MG tablet Take 1 tablet (0.5 mg) by mouth 2 times daily as needed for anxiety. 03/05/25 DEEPTI Gomez CNP atorvastatin (Lipitor) 40 MG tablet Take 1 tablet (40 mg) by mouth daily. 07/27/24 DEEPTI Gomez CNP reahrdtesxjwqwo-czlimnfywhomypa-HD 30-2-10 MG/5ML syrup Take 10 mL by mouth 3 times daily as needed for allergies. 09/19/24 Alfonso Coles MD Eliquis 5 MG tablet Take 1 tablet (5 mg) by mouth 2 times daily. 12/20/24 DEEPTI Mcdonough CNP Arcrzizejnj-Tdmevxdpc-Swhpww (Trelegy Ellipta) 200-62.5-25 MCG/ACT aerosol powder Inhale 1 puff into the lungs every day 10/06/24 gabapentin (Neurontin) 100 MG capsule Take 1 capsule (100 mg) by mouth Nightly. 02/13/25 DEEPTI Gomez CNP ibuprofen 600 MG tablet Take 1 tablet (600 mg) by mouth every 8 hours as needed for mild pain (1-3). 02/13/25 WilmarDEEPTI Perdomo CNP ipratropium-albuterol (Duo-Neb) 0.5-2.5 mg/3 mL nebulizer solution INAHLE 1 VIAL VIA NEBULIZER EVERY 6 HOURS NEEDED FOR SHORTNESS OF BREATH OR WHEEZING 02/13/21 Historical Provider, isosorbide mononitrate ER (Imdur) 60 MG 24 hr tablet Take 1 tablet (60 mg) by mouth daily. Do not crush or chew. 05/18/24 DEEPTI Mcdonough CNP levalbuterol (Xopenex) 0.63 MG/3ML nebulizer solution Take 3 mL by nebulization every 4 hours as needed. 06/17/20 Historical Provider, levothyroxine (Synthroid, Levoxyl) 100 MCG tablet Take 1 tablet (100 mcg) by mouth daily. 03/05/25 DEEPTI Gomez CNP Misc. Devices misc Handicap placard 12/20/20 Historical Provider, oxygen (O2) gas Inhale 2 L. Historical Provider, primidone (Mysoline) 50 MG tablet Take 2 tablets (100 mg) by mouth 2 times daily. 12/20/24 DEEPTI Gomez CNP Probiotic Product (Align Extra Strength) capsule Take 4 capsules by mouth daily. 01/25/25 Alfonso Coles MD sertraline (Zoloft) 100 MG tablet Take 2 tablets (200 mg) by mouth daily. 03/05/25 DEEPTI Gomez CNP topiramate 50 MG tablet Take 1 tablet by mouth daily. 11/02/24 Alfonso Coles MD ALPRAZolam (Xanax) 0.5 MG tablet Take 1 tablet (0.5 mg) by mouth 2 times daily as needed for anxiety. 01/02/25 03/05/25 Alfonso Coles MD levothyroxine (Synthroid, Levoxyl) 100 MCG tablet Take 1 tablet (100 mcg) by mouth daily. 10/13/24 03/05/25 DEEPTI Pichardo CNP sertraline (Zoloft) 100 MG tablet Take 2 tablets (200 mg) by mouth daily. 07/27/24 03/05/25 DEEPTI Gomez CNP Allergies: Patient has no known allergies. Social History Socioeconomic History Marital status: Spouse name: Not on file Number of children: Not on file Years of education: Not on file Highest education level: Not on file Occupational History Not on file Tobacco Use Smoking status: Every Day Current packs/day: 0.50 Average packs/day: 0.5 packs/day for 48.8 years (24.4 ttl pk-yrs) Types: Cigarettes Start date: 06/02/1976 Smokeless tobacco: Never Vaping Use Vaping status: Never Used Substance and Sexual Activity Alcohol use: Not Currently Comment: rarely Drug use: No Sexual activity: Defer Other Topics Concern Not on file Social History Narrative Not on file Social Drivers of Health Financial Resource Strain: Low Risk (07/05/2024) Overall Financial Resource Strain (CARDIA) Difficulty of Paying Living Expenses: Not very hard Food Insecurity: No Food Insecurity (07/05/2024) Hunger Vital Sign Worried About Running Out of Food in the Last Year: Never true Ran Out of Food in the Last Year: Never true Transportation Needs: No Transportation Needs (07/05/2024) PRAPARE - Transportation Lack of Transportation (Medical): No Lack of Transportation (Non-Medical): No Physical Activity: Insufficiently Active (07/05/2024) Exercise Vital Sign Days of Exercise per Week: 2 days Minutes of Exercise per Session: 40 min Stress: No Stress Concern Present (07/05/2024) [employer] [place] [employer] - Occupational Stress Questionnaire Feeling of Stress : Only a little Social Connections: Moderately Integrated (07/05/2024) Social Connection and Isolation Panel [NHANES] Frequency of Communication with Friends and Family: Three times a week Frequency of Social Gatherings with Friends and Family: Three times a week Attends Tenriism Services: More than 4 times per year Active Member of Clubs or Organizations: No Attends Club or Organization Meetings: Never Marital Status: Recent Concern: Social Connections - Moderately Isolated (04/20/2024) Social Connection and Isolation Panel [NHANES] Frequency of Communication with Friends and Family: Never Frequency of Social Gatherings with Friends and Family: More than three times a week Attends Tenriism Services: Never Active Member of Clubs or Organizations: No Attends Club or Organization Meetings: Never Marital Status: Intimate Partner Violence: Not At Risk (07/05/2024) Humiliation, Afraid, Rape, and Kick questionnaire Fear of Current or Ex-Partner: No Emotionally Abused: No Physically Abused: No Sexually Abused: No Housing Stability: Low Risk (07/05/2024) Housing Stability Vital Sign Unable to Pay for Housing in the Last Year: No Number of Times Moved in the Last Year: 0 Homeless in the Last Year: No Family History[3] Review of Systems Constitutional: Negative. HENT: Negative. Eyes: Negative. Respiratory: Positive for shortness of breath (O2 2L as needed). Cardiovascular: Positive for leg swelling (left ankle). Gastrointestinal: Negative. Endocrine: Negative. Genitourinary: Negative. Musculoskeletal: Positive for gait problem (cane). Skin: Negative. Allergic/Immunologic: Negative. Neurological: Positive for tremors, weakness and numbness (hands and feet). Hematological: Negative. Psychiatric/Behavioral: Negative. LABS: Lab Results Component Value Date CREATININE 0.55 (L) 10/17/2024 Lab Results Component Value Date WBC 8.5 10/25/2024 HGB 11.1 (L) 10/25/2024 HCT 33.7 (L) 10/25/2024 MCV 94.9 10/25/2024 PLT 149 10/25/2024 No results found for: "INR", "PROTIME" No results found for: "VLDL" Physical Exam Constitutional: Appearance: Normal appearance. She is well-groomed. Comments: Ambulates with cane Neck: Vascular: No carotid bruit. Cardiovascular: Rate and Rhythm: Normal rate and regular rhythm. Pulses: Carotid pulses are 2+ on the right side and 2+ on the left side. Radial pulses are 2+ on the right side and 2+ on the left side. Dorsalis pedis pulses are 2+ on the right side and 2+ on the left side. Posterior tibial pulses are 2+ on the right side and 2+ on the left side. Pulmonary: Effort: Pulmonary effort is normal. No respiratory distress. Breath sounds: Normal breath sounds. Abdominal: General: There is no distension. Palpations: There is no pulsatile mass. Tenderness: There is no abdominal tenderness. There is no guarding. Musculoskeletal: General: Normal range of motion. Cervical back: Normal range of motion and neck supple. Right lower leg: No edema. Left lower leg: No edema. Skin: General: Skin is warm and dry. Neurological: Mental Status: She is alert and oriented to person, place, and time. Motor: Tremor present. Psychiatric: Mood and Affect: Mood is anxious. Behavior: Behavior normal. Behavior is cooperative. Imaging Carotid Duplex 12/2024 FINDINGS: RIGHT: Plaque: Moderate calcified and noncalcified plaque identified CCA peak systolic: 74 cm/sec CCA end diastolic: 18 cm/sec ICA peak systolic: 1:30 cm/sec ICA end diastolic: 39 cm/sec ICA/CCA ratio: 1.5 Estimated ICA stenosis: Less than 50% ECA systolic: 201 cm/sec Vertebral: Antegrade LEFT: Plaque: Moderate calcified and noncalcified plaque identified CCA peak systolic: 101 cm/sec CCA end diastolic: 25 cm/sec ICA peak systolic: 164 cm/sec ICA end diastolic: 44 cm/sec ICA/CCA ratio: 1.6 Estimated ICA stenosis: 50-69% ECA systolic: 196 cm/sec Vertebral: Antegrade IMPRESSION/RECOMMENDATIONS: Problem List Items Addressed This Visit None Visit Diagnoses Carotid stenosis, left Relevant Orders Vascular US carotid artery duplex bilateral ASSESSMENT/PLAN: 1. Left Carotid Stenosis -Asymptomatic. No indication for surgical intervention at this time. Plan repeat duplex in 1 year -Continue Eliquis/statin as prescribed. Should stenosis worsen, would think about addition of ASA -Discussed importance of maintaining normal blood pressure -Discussed importance of nicotine cessation and negative impact on vascular health. -Discussed signs and symptoms of TIA/CVA and the patient understands that they should call 911 and immediately to the emergency department if they develop. . [1] Past Medical History: Diagnosis Date Abnormal stress test 08/27/2022 Anxiety COPD (chronic obstructive pulmonary disease) ([facility]) COVID-19 05/2020 PNA Depression Hyperlipidemia Hypertension Left leg DVT ([facility]) 2019 Eliquis Lumbar degenerative disc disease 2020 hx of sciatica Lumbar radiculopathy, right 07/2023 moderate multilevel stenosis per MRI- w/u pnd Smoker Tremors of nervous system [2] Past Surgical History: Procedure Laterality Date BILATERAL SALPINGOOPHORECTOMY 04/2023 Dr. Carpenter- benign ovarian cyst BLADDER SUSPENSION times 3 CARDIAC CATHETERIZATION N/A 08/27/2022 Performed by Negin Rodgers MD at [facility] Cardiac Cath/EP Lab CARDIAC CATHETERIZATION N/A 08/27/2022 Performed by Negin Rodgers MD at [facility] Cardiac Cath/EP Lab CARDIAC CATHETERIZATION N/A 08/27/2022 Performed by Negin Rodgers MD at [facility] Cardiac Cath/EP Lab COLONOSCOPY 03/20/2021 Dr. Mariano[facility] COLONOSCOPY 2008 [facility] HYSTERECTOMY OOPHORECTOMY PARTIAL HYSTERECTOMY 2002 simple hyst [3] Family History Problem Relation Name Age of Onset Parkinsonism Mother Colon cancer Father Prostate cancer Father 57 Breast cancer Sister 35 OFFICE VISIT Observed: 03/08/2025 9:00 AM Status: COMPLETED Source: [facility] [id number] MarLynne F Date Provider Department Center 03/08/2025 SWAPNA DUNN [facility] None Family History Problem Relation Age of Onset Parkinsonism Mother Colon cancer Father Prostate cancer Father 57 Breast cancer Sister 35 Family Status - Relation Status Age at Mother Father Sister Level of Service:[id number] [place] OFFICE/OUTPATIENT [facility]OW [facility] 30 MINUTES Reason for Visit and Comments: New Patient [[id number]] - (ref Wilmar Cruz, RASHIDA) CUSTOMER TRAINER eval for carotid stenosis, CU 01/10/25 36 Observed: 03/05/2025 7:58 AM Status: COMPLETED Source: [facility] Reviewed chart. Refill appro priate. RX sent. 36 Observed: 03/05/2025 7:11 AM Status: COMP LETED Source: [facility] CSMA 06/20/24 36 Observed: 03/04/2025 9:40 PM Status: COMPLETED Source: [facility] Ordering provider: Dr Coles Date of last office visit: 01/24/25 Date of next office visit: 03/08/25 Updated/Validated preferred pharmacy: Yes Patient instructed to contact the pharmacy prior to picking up the medication: N/A (1) Medication name: Alprazolam 0.5 mg Medication dosage: 0.50 mg (Miligrams Monthly quantity needed: 30 How many day supply requestin Medication route: oral (PO) Medication administration time(s): 2 bid prn If taking medication PRN, reason for taking medication: N/A If this is a controlled substance do you receive this or any other controlled medication from any other doctor or facility: N/A Date of last refill (see medication tab): 01/02/25 (2) Medication name: Sertraline 100 mg Medication dosage: 100 mg (Miligrams Monthly quantity needed: 90 How many day supply requestin days Medication route: oral (PO) Medication administration time(s): 2 tablets daily If taking medication PRN, reason for taking medication: N/A If this is a controlled substance do you receive this or any other controlled medication from any other doctor or facility: N/A Date of last refill (see medication tab): 12/07/24 (3) Medication name: Levothyroxine Medication dosage: 100 mg (Miligrams Monthly quantity needed: 120 How many day supply requestin days Medication route: oral (PO) Medication administration time(s): daily If taking medication PRN, reason for taking medication: N/A If this is a controlled substance do you receive this or any other controlled medication from any other doctor or facility: N/A Date of last refill (see medication tab): 10/13/24 36 Observed: 02/14/2025 7:27 AM Status: COMPLETED Source: [facility] Had seen Lynne over the wee kend and she stated she received a text message from Aleida stating they have not received the order for her cane, refaxed both OV notes and order over to fax number provided. 36 Observed: 02/13/2025 4:40 PM Status: COMPLETED Source: [facility] OARRS reviewed and consisten t with treatment plan. CS MA in place 36 Observed: 02/13/2025 1:01 PM Status: COMPLETED Source: [facility] Ordering provider: Sharyn Date of last office visit: 01/24/25 Date of next office visit: 05/01/25 Updated/Validated preferred pharmacy: Yes Patient instructed to contact the pharmacy prior to picking up the medication: Yes (1) Medication name: ibuprofen 600 MG tablet Medication dosage: 600 mg (Miligrams Monthly quantity needed: 90 How many day supply requestin days Medication route: oral (PO) Medication administration time(s): every 8 hours If taking medication PRN, reason for taking medication: mild pain If this is a controlled substance do you receive this or any other controlled medication from any other doctor or facility: N/A Date of last refill (see medication tab): 01/02/25 (2) Medication name: gabapentin (Neurontin) 100 MG capsule Medication dosage: 100 mg (Miligrams Monthly quantity needed: 30 How many day supply requestin days Medication route: oral (PO) Medication administration time(s): bedtime (HS) If taking medication PRN, reason for taking medication: N/A If this is a controlled substance do you receive this or any other controlled medication from any other doctor or facility: N/A Date of last refill (see medication tab): 12/20/24 [id number] [place], [place] - [address] 36 Observed: 02/02/2025 12:15 PM Status: COMPLETED Source: [facility] [employer] [facility] Faxed DME order to number pr ovided. 36 Observed: 02/02/2025 12:00 PM Status: COMPLETED Source: [facility] [employer] [facility] Name of caller: Aleida Contact phone number: [phone] Relationship to Patient: Home Link Provider: Dr. Coles Practice: [facility] Chief Complaint/Reason for Call: Aleida is requesting the prescription and clinical notes for patient's cane faxed to [phone]. Please advise. Best time of day caller can be reached: Any Patient advised that office/PCP has 24-48 business hours to return their call: Yes 36 Observed: 01/24/2025 3:31 PM Status: COMP LETED Source: [facility] [employer] [facility] Done 36 Observed: 01/24/2025 3:29 PM Status: COMPLETED Source: [facility] [employer] [facility] Order for cane given PROGRESS NOTE Observed: 01/24/2025 3:22 PM Status: COMPLETED Source: [facility] [email or web address] [facility] Nail is loose we were able t o trim the nail way back and remove most of the fungal looking nail and there is a bit of clear nail clear at the cuticle. PROGRESS NOTE Observed: 01/24/2025 3:21 PM Status: COMPLETED Source: [facility] [employer] [facility] Stable, refill albuterol, Rx sent PROGRESS NOTE Observed: 01/24/2025 3:21 PM Status: COMPLETED Source: [facility] [employer] [facility] Unsteady on her feet, prescr iption for cane given PROGRESS NOTE Observed: 01/24/2025 2:45 PM Status: COMPLETED [facility] 01/24/2025 Lynne Mar (: 1950) is a 74 y.o. female , Established patient, here for evaluation of the following chief complaint(s): Toenail Problem (Right hallux nail- is coming off) ASSESSMENT/PLAN: 1. Onychomycosis Assessment & Plan: Nail is loose we were able to trim the nail way back and remove most of the fungal looking nail and there is a bit of clear nail clear at the cuticle. 2. Spinal stenosis of lumbosacral region Assessment & Plan: Unsteady on her feet, prescription for cane given Orders: - DME Order for cane 3. Other emphysema (HCC) Assessment & Plan: Stable, refill albuterol, Rx sent Orders: - albuterol 108 (90 Base) MCG/ACT inhaler; INHALE TWO PUFFS BY MOUTH EVERY 6 HOURS NEEDED FOR WHEEZING, Normal Follow up if symptoms worsen or fail to improve. SUBJECTIVE/OBJECTIVE: HPI -Lynne comes in today concerned about her right great toenail is loose and is about ready to fall off and she would like to have it removed. She has a fungal infection on her toenail and it is thickened and scaly. She also says she has some problems with walking and would like to have a cane if possible. She also has emphysema and would like a refill on her albuterol inhaler Review of Systems Respiratory: Positive for shortness of breath and wheezing. Negative for cough. Cardiovascular: Negative for chest pain and palpitations. Skin: Positive for color change. Vitals: 01/24/25 1455 BP: 85/50 Pulse: 80 SpO2: 94% Weight: 163 lb 12.8 oz (74.3 kg) Height: 5' 4" (1.626 m) Physical Exam Vitals and nursing note reviewed. Constitutional: Appearance: Normal appearance. Cardiovascular: Rate and Rhythm: Normal rate and regular rhythm. Heart sounds: Normal heart sounds. No murmur heard. Pulmonary: Effort: Pulmonary effort is normal. Breath sounds: Normal breath sounds. Skin: Comments: Right great toenail thickened loose from the nailbed and scaly. Neurological: Mental Status: She is alert. An electronic signature was used to authenticate this note. Alfonso Coles MD 01/24/2025 3:22 PM OFFICE VISIT Observed: 01/24/2025 2:45 PM Status: COMPLETED Source: [facility] [id number] Lynne Mar F Date Provider Department Center 01/24/2025 [id number] Family History Problem Relation Age of Onset Parkinsonism Mother Colon cancer Father Prostate cancer Father 57 Breast cancer Sister 35 Family Status - Relation Status Age at Mother Father Sister Level of Service:57020 [place] OFFICE/OUTPATIENT ESTABLISHED LOW MDM 20 MIN Reason for Visit and Comments: Toenail Problem [639] - Right hallux nail- is coming off PROGRESS NOTE Observed: 01/24/2025 2:45 PM Status: COMPLETED Source: [facility] Patient verified by last nam e and date of . 36 Observed: 01/24/2025 1:58 PM Status: COMPLETED Source: [facility] S: Patient spoke with HAFSA mcgregor regarding patients right big toenail needs to come off, its just hanging Provider: Dr. Coles Practice Name: [facility] B: onset symptoms/concern one month A: Patient states her big toenail on her right foot "refuses to come off." States this has been ongoing for one month. Has been soaking it in warm water. No injury to her toe. States the nail started to just lift off of the nailbed. Denies pain, redness, drainage, fever, diabetes. R: Appointment scheduled for today at 2:[address] Coles. Appointment reminders reviewed. Home care advice reviewed. Verbalizes understanding of care advice. Patient instructed to call back with new or worsening symptoms. Reason for Disposition Toenail trimming, questions about Protocols used: Toe [id number] 36 Observed: 01/24/2025 12:12 PM Status: COMPLETED Source: [facility] Name of caller: Lynne Alva on Contact phone number: [phone] Relationship to Patient: patient Provider: Dr. Coles Practice: [facility] Chief Complaint/Reason for Call: Patient stated she would like an order for a cane and wasn't sure the name but stated it has the four little legs at the bottom of the cane. Please advise. Thank you. Best time of day caller can be reached: Any Patient advised that office/PCP has 24-48 business hours to return their call: Yes 36 Observed: 01/11/2025 3:31 PM Status: COMPLETED Source: [facility] Okay, thank you 36 Observed: 01/11/2025 8:33 AM Status: COMPLETED Source: [facility] Patient had this completed a lready. 36 Observed: 01/11/2025 8:32 AM Status: COMPLETED Source: [facility] Spoke with patient, wanted t o wait for now to schedule. [facility] US CAROTID ARTERY DUPLEX BILATERAL Observed: 01/10/2025 8:46 PM Status: F Source: [facility] This is a summary report. Th e complete report is available in the patient's medical record. If you cannot access the medical record, please contact the sending organization for a detailed fax or copy. Patient Name: LYNNE MAR : 1950 [facility]#: [id number] Exam Date/Time: 01/10/2025 13:14 Procedure: [facility] US CAROTID ARTERY DUPLEX BILATERAL Ordering Provider: CRUZ REBECCA Reason For Exam: Bruit, neck BILATERAL CAROTID ULTRASOUND: CLINICAL INDICATION: Bilateral bruits. TECHNIQUE: Two-dimensional, Color-flow and spectral Doppler sonography of the extracranial arterial circulation was performed. COMPARISON: None. FINDINGS: RIGHT: Plaque: Moderate calcified and noncalcified plaque identified CCA peak systolic: 74 cm/sec CCA end diastolic: 18 cm/sec ICA peak systolic: 1:30 cm/sec ICA end diastolic: 39 cm/sec ICA/CCA ratio: 1.5 Estimated ICA stenosis: Less than 50% ECA systolic: 201 cm/sec Vertebral: Antegrade LEFT: Plaque: Moderate calcified and noncalcified plaque identified CCA peak systolic: 101 cm/sec CCA end diastolic: 25 cm/sec ICA peak systolic: 164 cm/sec ICA end diastolic: 44 cm/sec ICA/CCA ratio: 1.6 Estimated ICA stenosis: 50-69% ECA systolic: 196 cm/sec Vertebral: Antegrade IMPRESSION: 1. Stenosis in the left proximal internal carotid artery likely range of 50-69 percent luminal narrowing. 2. No significant stenosis in the right internal carotid artery 3. Patent vertebral arteries This radiologist maintains RVT certification. Reference: Measurement of carotid stenosis is a ratio based on conventional angiographic data from the NASCET trials with the smallest caliber of the internal carotid as the numerator and normal post-stenotic internal carotid caliber as denominator. Stenosis based upon Society of Radiologists in Ultrasound consensus (2003): <50%: ICA PS <125 cm/sec, ICA ED <40 cm/sec, ICA/CCA ratio <2.0 50-69%: ICA PS 125-230 cm/sec , ICA ED 40-100 cm/sec, ICA/CCA ratio 2-4 >70%: ICA PS >230 cm/sec, ICA ED >100 cm/sec, ICA/CCA ratio >4 Recommended Modification of Stenosis estimation from IAC (2022): <50%: ICA PS <180 cm/sec, ICA ED <40 cm/sec, ICA/CCA ratio <2.0 50-69%: ICA PS 180-230 cm/sec , ICA ED 40-100 cm/sec, ICA/CCA ratio 2-4 >70%: ICA PS >230 cm/sec, ICA ED >100 cm/sec, ICA/CCA ratio >4 Report Dictated on Electronically Signed By: Martin Batista MD Electronically Signed Date/Time: 01/10/2025 8:46 PM EDT 36 Observed: 01/09/2025 9:23 AM Status: COMPLETED Source: [employer] [facility] We have been unable to reach your patient to schedule their testing. Test Name: Vascular US Carotid 3rd attempt- called lvm - sent TE - CT 01/09/25 2nd attempt, sent delayed mychart msg 05/13 ES 1st attempt 03/10/24//LVM//SS 36 Observed: 01/03/2025 10:35 AM Status: COMPLETED [facility] Left a message to return ti l. 36 Observed: 01/02/2025 3:28 PM Status: COMPLETED [facility] If she can get it off okay o therwise she needs to schedule an appointment and we can look at it. 36 Observed: 01/02/2025 2:36 PM Status: COMPLETED [facility] Rx sent, OARRS report done, no inconsistencies, CS agreement in place 36 Observed: 01/02/2025 1:36 PM Status: COMPLETED [facility] Xanex & Gabapentin - 5 36 Observed: 01/02/2025 12:36 PM Status: COMPLETED [facility] S: Patient spoke with AHFSA mcgregor regarding toe nail problem on right foot big toe B: Onset of symptoms/concern today A: Patient states she has her toe nail half way off and needs someone to pull it off. Patient states it was loose so she took her toe nail on left foot big toe off and is trying to do the same on the right foot. Nail catches on her shoe and pulls. Denies any redness, swelling or pain to toe. States her toe nails are thick. 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 Please advise and call patient back. Thanks. She states she is going to keep trying to get it off. Patient given care advice per protocol. Patient understands care advice. No further needs at this time. Patient instructed to call back with new or worsening symptoms. Reason for Disposition Thickened, ugly-appearing toenail Protocols used: Toenail - [id number] 36 Observed: 01/02/2025 12:34 PM Status: COMPLETED Source: [employer] [facility] (1) Medication name: ibuprofen 600 MG tablet Medication dosage: 600 mg (Miligrams Monthly quantity needed: 90 How many day supply requestin days Medication route: oral (PO) Medication administration time(s): as needed (PRN) If taking medication PRN, reason for taking medication: Every 8 hours PRN for mild pain (1-3) If this is a controlled substance do you receive this or any other controlled medication from any other doctor or facility: N/A Date of last refill (see medication tab): 12/04/24 Ordering provider: Maisha Ramos Date of last office visit: 10/25/24 Date of next office visit: 05/01/25 Updated/Validated preferred pharmacy: Yes Patient instructed to contact the pharmacy prior to picking up the medication: Yes (2) Medication name: ALPRAZolam (Xanax) 0.5 MG tablet Medication dosage: 0.50 mg (Miligrams Monthly quantity needed: 90 How many day supply requestin days Medication route: oral (PO) Medication administration time(s): as needed (PRN) If taking medication PRN, reason for taking medication: 2 times daily PRN for anxiety If this is a controlled substance do you receive this or any other controlled medication from any other doctor or facility: No Date of last refill (see medication tab): 11/29/24 36 Observed: 12/20/2024 2:53 PM Status: COMPLETED Source: [employer] Last seen 10/17/24. CBC/BMP do ne 10/25/24. GFR 96. H/H 11.1/33.7 36 Observed: 12/20/2024 7:20 AM Status: COMP LETED Source: [facility] CSMA 06/19/24 36 Observed: 12/20/2024 6:58 AM Status: COMPLETED Source: [facility] S-Patient would like her Arden beard to be sent to [facility] retail pharmacy not [facility] and also needs Primadone called in to [facility] Retail pharmacy B-States it went to [facility] R-Patient can be reached @ [phone] Reason for Disposition ? [1] Caller has NON-URGENT medicine question about med that PCP prescribed AND [2] triager unable to answer question Protocols used: Medication Question [id number] 36 Observed: 12/19/2024 6:15 PM Status: COMPLETED Source: [facility] Reviewed chart. Refill appro priate. RX sent. 36 Observed: 12/19/2024 3:34 PM Status: COMPLETED Source: [facility] Gabapentin - 06/19/24 36 Observed: 12/19/2024 3:22 PM Status: COMPLETED Source: [facility] Medication name: gabapentin (Neurontin) 100 MG capsule Medication dosage: 100 mg (Miligrams Monthly quantity needed: 60 How many day supply requestin days Medication route: oral (PO) Medication administration time(s): bedtime (HS) If taking medication PRN, reason for taking medication: N/A If this is a controlled substance do you receive this or any other controlled medication from any other doctor or facility: N/A Ordering provider: Dr. Coles Date of last office visit: 10/25/24 Date of next office visit: 05/01/25 Date of last refill: (see medication tab): 10/20/24 Updated/Validated preferred pharmacy: Yes Patient instructed to contact the pharmacy prior to picking up the medication: Yes 36 Observed: 12/04/2024 3:45 PM Status: COMPLETED Source: [facility] Rx sent. Follow up as schedu led. 36 Observed: 12/04/2024 2:28 PM Status: COMPLETED Source: [facility] Prescription Request: ibuprofen 600 MG tablet Last medication check: 10/25/24 Last physical exam: 04/21/24 Next scheduled appointment: 05/01/25 Last date of refill on this medication 09/19/24 ( qty 90 refill 0 ) 36 Observed: 12/04/2024 2:08 PM Status: COMPLETED Source: [facility] Medication name: ibuprofen 6 00 MG tablet Medication dosage: 600 mg (Miligrams Monthly quantity needed: 90 How many day supply requestin days Medication route: oral (PO) Medication administration time(s): Take 1 tablet (600 mg) by mouth every 8 hours as needed for mild pain (1-3). If taking medication PRN, reason for taking medication: Take 1 tablet (600 mg) by mouth every 8 hours as needed for mild pain (1-3). If this is a controlled substance do you receive this or any other controlled medication from any other doctor or facility: n/a Ordering provider: Dr. Coles Date of last office visit: 10/26/24 Date of next office visit: 05/01/25 Date of last refill: (see medication tab): 09/19/24 Updated/Validated preferred pharmacy: Yes [facility] Patient instructed to contact the pharmacy prior to picking up the medication: Yes 36 Observed: 11/29/2024 3:14 PM Status: COMPLETED Source: [facility] Rx sent, OARRS report done, no inconsistencies, CS agreement in place 36 Observed: 11/29/2024 12:59 PM Status: COM PLETED Source: [facility] Csa 06/19/24 36 Observed: 11/29/2024 11:35 AM Status: COMPLETED Source: [facility] Medication name: ALPRAZolam (Xanax) 0.5 MG tablet Pt wanted to let pcp know aalmost out of this medication Medication dosage: 0.5 mg (Miligrams Monthly quantity needed: 90 tab How many day supply requestin day Medication route: oral (PO) Medication administration time(s): 2 times a day (BID) prn If taking medication PRN, reason for taking medication: N/A If this is a controlled substance do you receive this or any other controlled medication from any other doctor or facility: N/A Ordering provider: Date of last office visit: 10/25/24 Date of next office visit: 05/01/25 Date of last refill: (see medication tab): 10/12/24 Updated/Validated preferred pharmacy: Yes Patient instructed to contact the pharmacy prior to picking up the medication: Yes 36 Observed: 11/02/2024 10:54 AM Status: COMPLETED Source: [facility] Medication name: Topiramate Medication dosage: 50 mg (Miligrams Monthly quantity needed: 30 How many day supply requestin days Medication route: oral (PO) Medication administration time(s): daily If taking medication PRN, reason for taking medication: N/A If this is a controlled substance do you receive this or any other controlled medication from any other doctor or facility: No Ordering provider: Dr Coles Date of last office visit: 10/25/24 Date of next office visit: 05/01/25 Date of last refill: (see medication tab): Updated/Validated preferred pharmacy: Yes Patient instructed to contact the pharmacy prior to picking up the medication: Yes 36 Observed: 10/30/2024 9:51 AM Status: COMPLETED Source: [facility] Lmom with results and recs. Any further questions, instructed to call office to discuss further. 36 Observed: 10/30/2024 9:51 AM Status: COMPLETED Source: [facility] ----- Message from José Antonio Lentz sent at 10/27/2024 4:33 PM EDT ----- ----- Message ----- From: DEEPTI Avila CNP Sent: 10/27/2024 4:32 PM EDT To: [facility] Clinical Rn Picu Let her know that her lab work is stable. ----- Message ----- From: Roshan Weaver Lab Results In Sent: 10/17/2024 10:23 PM EDT To: DEEPTI Avila CNP PROGRESS NOTE Observed: 10/25/2024 11:49 AM Status: COMPLETED Source: [facility] Partial remission, continue Zoloft 200 mg daily PROGRESS NOTE Observed: 10/25/2024 11:48 AM Status: COMPLETED Source: [facility] Controlled, continue atorvas tatin 40 mg daily PROGRESS NOTE Observed: 10/25/2024 11:48 AM Status: COMPLETED Source: [facility] Partial remission, continue Zoloft 200 mg daily and alprazolam 0.5 mg twice a day as needed PROGRESS NOTE Observed: 10/25/2024 11:48 AM Status: COMPLETED Source: [facility] Stable, will get CBC today PROGRESS NOTE Observed: 10/25/2024 11:47 AM Status: COMPLETED Source: [facility] Controlled, continue levothy roxine 100 mcg daily PROGRESS NOTE Observed: 10/25/2024 11:46 AM Status: COMPLETED Source: [facility] Stable, no recent angina con tinue atorvastatin 40 mg daily isosorbide mononitrate ER 60 mg daily PROGRESS NOTE Observed: 10/25/2024 11:46 AM Status: COMPLETED Source: [facility] Stable, continue albuterol i nhaler, Trelegy, and DuoNebs solution or Xopenex as needed. PROGRESS NOTE Observed: 10/25/2024 11:45 AM Status: COMPLETED Source: [facility] Stable, continue oxygen as n eeded PROGRESS NOTE Observed: 10/25/2024 11:45 AM Status: COMPLETED Source: [facility] Stable, continue primidone 1 00 mg twice a day and follow-up with neurology as scheduled. 36 Observed: 10/25/2024 11:12 AM Status: COMPLETED Source: [facility] Patient came to appointment and was seen by Dr. Coles. PROGRESS NOTE Observed: 10/25/2024 10:45 AM Status: COMPLETED Source: [facility] 10/25/2024 Lynne Mar (: 1950) is a 74 y.o. female , Established patient, here for evaluation of the following chief complaint(s): Medication Check and Health Maintenance (Pna- declines/Zoster- declines ) ASSESSMENT/PLAN: 1. Other emphysema (HCC) Assessment & Plan: Stable, continue albuterol inhaler, Trelegy, and DuoNebs solution or Xopenex as needed. 2. Chronic respiratory failure with hypoxia (HCC) Assessment & Plan: Stable, continue oxygen as needed 3. Essential tremor Assessment & Plan: Stable, continue primidone 100 mg twice a day and follow-up with neurology as scheduled. 4. Atherosclerosis of [place] coronary artery of [place] heart with stable angina pectoris (HCC) Assessment & Plan: Stable, no recent angina continue atorvastatin 40 mg daily isosorbide mononitrate ER 60 mg daily 5. Acquired hypothyroidism Assessment & Plan: Controlled, continue levothyroxine 100 mcg daily 6. Dyslipidemia Assessment & Plan: Controlled, continue atorvastatin 40 mg daily 7. Recurrent major depressive disorder, in partial remission (HCC) Assessment & Plan: Partial remission, continue Zoloft 200 mg daily 8. Chronic anemia Assessment & Plan: Stable, will get CBC today 9. Anxiety Assessment & Plan: Partial remission, continue Zoloft 200 mg daily and alprazolam 0.5 mg twice a day as needed Follow up in about 6 months (around 04/27/2025) for AWV. SUBJECTIVE/OBJECTIVE: LAURA Landin comes in today for 6-month follow-up on her COPD, hypoxemia and knees are stable at this time she does not wear oxygen during the day. She has an essential tremor which seems to be fairly well-controlled right now with her medication. She has coronary artery disease and she denies any recent angina and she has hypercholesterolemia which is stable. She has hypothyroidism and not stable with her current medication and she has depression and chronic anemia. Review of Systems Constitutional: Negative for chills and fever. Respiratory: Negative for shortness of breath. Cardiovascular: Negative for chest pain and palpitations. Gastrointestinal: Negative for abdominal pain, blood in stool, constipation and diarrhea. Genitourinary: Negative for dysuria, frequency, hematuria and urgency. Neurological: Negative for weakness and numbness. Psychiatric/Behavioral: Negative for dysphoric mood. The patient is nervous/anxious. Vitals: 10/25/24 1043 BP: 110/71 BP Location: Left arm Patient Position: Sitting Pulse: 72 SpO2: 95% Weight: 166 lb 6.4 oz (75.5 kg) Height: 5' 4" (1.626 m) Physical Exam Vitals and nursing note reviewed. Constitutional: General: She is not in acute distress. Appearance: Normal appearance. HENT: Head: Normocephalic and atraumatic. Mouth/Throat: Mouth: Mucous membranes are moist. Pharynx: Oropharynx is clear. Eyes: Extraocular Movements: Extraocular movements intact. Pupils: Pupils are equal, round, and reactive to light. Neck: Thyroid: No thyromegaly. Vascular: No carotid bruit. Cardiovascular: Rate and Rhythm: Normal rate and regular rhythm. Heart sounds: Normal heart sounds. No murmur heard. Pulmonary: Effort: Pulmonary effort is normal. Breath sounds: Normal breath sounds. Musculoskeletal: Cervical back: Neck supple. Lymphadenopathy: Cervical: No cervical adenopathy. Neurological: Mental Status: She is alert. An electronic signature was used to authenticate this note. Alfonso Coles MD 10/25/2024 11:49 AM OFFICE VISIT Observed: 10/25/2024 10:45 AM Status: COMPLETED [facility] [id number] Lynne Mar F Date Provider Department Center 10/25/2024 [id number] COLESFloridalma [facility] Family History Problem Relation Age of Onset Colon cancer Father Parkinsonism Mother Cancer Father Breast cancer Sister Family Status - Relation Status Age at Father Mother Sister Level of Service:25585 [place] OFFICE/OUTPATIENT ESTABLISHED MOD MDM 30 MIN Reason for Visit and Comments: Medication Check [[id number]] Health Maintenance [872] - Pna- declines Zoster- declines PROGRESS NOTE Observed: 10/25/2024 10:45 AM Status: COMPLETED [facility] After obtaining consent, and per orders of Dr. Coles, injection of PCV 20 given in the Left Deltoid by Lynn Naranjo. Patient instructed to report any adverse reactions immediately. 36 Observed: 10/25/2024 9:30 AM Status: COMPLETED [facility] Called and LM for patient--- per Dr Coles--she does not need to come to appt today at 10:45am since she was just here. 36 Observed: 10/20/2024 10:47 AM Status: COMPLETED [facility] Rx sent. OARRS report review ed with no discrepancies. CSA signed June 2024. Follow up as scheduled. 36 Observed: 10/20/2024 10:22 AM Status: COMPLETED Source: [facility] [employer] [facility] Prescription Request: primidone (Mysoline) 50 MG tablet gabapentin (Neurontin) 100 MG capsule Last medication check: 10/12/24 Last physical exam: 04/21/24 Next scheduled appointment: 10/25/24 CSA on file (date): 06/20/24 Last date of refill on this medication Primidone 07/18/24 (qty 120 refill 2) PROGRESS NOTE Observed: 10/17/2024 8:30 AM Status: COMPLETED Source: [facility] [employer] [facility] Cardiology Offi ce Note DATE of SERVICE: 10/17/24 TIME of SERVICE: 9:45 AM Reason for Visit Chief Complaint Patient presents with Follow-up Subjective Lynne Mar is a 74 y.o. female who has a history of non-obstructive CAD, dyslipidemia, remote PE on chronic anticoagulation, and COPD with chronic oxygen supplementation. Last seen by Dr. Serrano November 2022. April 2023 she had an ovarian mass the size of an orange and is s/p complete hysterectomy. She comes into the office today as an urgent scheduled visit by her primary care provider. Recently seen by her PCP and had low blood pressures and felt dizzy and lightheaded. She comes to the office visit today unaccompanied. She tells me yesterday she spent the day mowing her grass as well as trimming it. At today's office visit she denies any cardiac complaints. Her blood pressure is better at today's office visit. The only thing she tells me that his change is she went from taking Xanax 3 times a day to twice a day. Xanax is known to cause some side effect of hypotension. She tells me she is doing her best to stay hydrated. Again at today's office visit she denies any complaints. Her EKG is sinus rhythm with right bundle branch block and this is not new. Assessment and Plan 1. Atherosclerosis of [place] coronary artery of [place] heart with stable angina pectoris (HCC) - CBC - Basic metabolic panel 2. Atherosclerosis of [place] coronary artery of [place] heart without angina pectoris - ECG 12 lead Coronary artery disease. LHC/RHC 08/2022 with prox LAD 50%, mid LAD 60% with iFR 0.84, and prox RCA 30%, to be managed medically. Lexiscan Stress test 10/2023 negative for ischemia No aspirin due to Eliquis Continues on long-acting nitrate and statin No beta-ayana - Suspect due to COPD Dyslipidemia. Continues on atorvastatin 40 mg daily Goal LDL < 70 Yearly lipids per primary care office COPD. Continue management per pulmonology in [place] - Gloria Bahena Uses oxygen at night and oxygen after exercise; takes inhaler wherever she goes Tobacco Abuse. Current. However reports cutting back on cigarettes. Smoking sometimes 10 cigarettes per day. Advised complete cessation Social determinants of health. She does have CUSTOMER PROGRAM MANAGER following her. I will review with Dr. Coles - she may benefit from geriatric assessment and involvement Poor health literacy Financial strain 6. Hypotension: Currently at today's office visit her blood pressure is on the softer side however she is not complaining of any problems with lightheadedness or dizziness today. The only change that has been made to her medications recently is that she reports she was taking from Xanax 3 times a day to twice a day. She is not really sure if this is helping with anxiety but nonetheless her blood pressure is better today and no symptoms. A. I do not think I had add anything like midodrine or anything to her today's office visit as she is not symptomatic with this. B. She does take Imdur as stated above, I suppose we could cut that in half C. I am going to have her draw some routine lab work to make sure she's not dehydrated or anemic. D. Keep follow up as originally planned. Has follow up in a week with her pcp. No follow-ups on file. Cardiac Testing 10/27/23 NM STRESS TEST WITH MYOCARDIAL PERFUSION 10/27/2023 2:37 PM, 10/27/2023 2:50 PM (Final) Interpretation Summary No evidence of induced ischemia is identified on perfusion images following vasodilator stress. Left ventricular ejection fraction and wall motion appear normal on gated SPECT images. Stress ECG: There were no arrhythmias during stress. No ST depression was noted. There were no noted arrhythmias during recovery. Conclusion: The lexiscan ECG stress test is normal. Resting ECG: The ECG shows normal sinus rhythm. Resting ECG shows non-specific T waves. ECG demonstrates right bundle branch block. Signed by: Fausto Hilton MD on 10/27/2023 2:37 PM, Signed by: Angelica Alexander MD on 10/27/2023 2:50 PM EK10/04/2023 - sinus bradycardia at 58 bpm with RBBB 11/19/22 ECG 12-LEAD 11/19/2022 11:45 AM (Final) Narrative Sinus Rhythm WITHIN NORMAL LIMITS Signed by: Migue Serrano MD on 11/19/2022 11:45 AM 08/27/22 CARDIAC PROCEDURE 08/28/2022 7:18 AM (Final) Conclusion 71 yr F with h/o smoking, HLD, COPD, presents with chronic exertional dyspnea. H/o Abnormal nuclear stress test in 2019, in setting of coronary calcifications on CT chest for lung CA screening. LHC was scheduled in August 2019, but with pandemic, she was lost to follow up. She was recently seen in office again for ongoing exertional dyspnea. LHC : Right dominant LM - minimal luminal disease LAD - Mid LAD with moderate 50-60% serial lesions. Hemodynamically significant via iFR, 0.85. HD IVUS with moderate diffuse disease from mid to distal LAD, with minimal luminal area of 3.94 mm2 in mid LAD LCX - minimal luminal disease RCA - mild disease, 20-30% in mid RCA LVEDP - 12 mm Hg No Aortic stenosis on pull back LV gram - preserved EF, 70 %. Normal wall motion RHC : Mean RA - 9 RV - 35/10/5 PA - 34/11/19 - no evidence of pulmonary hypertension Mean PCWP - 9 CO/ CI - 6.0 /3.4 ( [place] ) , 6.2/3.5 ( Thermo) Conclusion : Moderate diffuse single vessel disease in Mid to distal LAD. Normal Right and Left sided pressures. Normal Cardiac output. Of note, without supplemental oxygen, patient;s lowest pulse ox during procedure was 95%. Signed by: Negin Rodgers MD on 08/28/2022 7:18 AM Current Medications Current Outpatient Medications: acetaminophen (Tylenol) 500 MG tablet, Take 500 mg by mouth Nightly. 2 at hs extra strength, Disp: , Rfl: albuterol 108 (90 Base) MCG/ACT inhaler, INHALE TWO PUFFS BY MOUTH EVERY 6 HOURS NEEDED FOR WHEEZING, Disp: 18 g, Rfl: 5 ALPRAZolam (Xanax) 0.5 MG tablet, Take 1 tablet (0.5 mg) by mouth 2 times daily as needed for anxiety., Disp: 90 tablet, Rfl: 0 atorvastatin (Lipitor) 40 MG tablet, Take 1 tablet (40 mg) by mouth daily., Disp: 90 tablet, Rfl: 1 mdntepkvkwnuxot-slyrtlqitutjyau-FO 30-2-10 MG/5ML syrup, Take 10 mL by mouth 3 times daily as needed for allergies., Disp: 120 mL, Rfl: 0 budesonide-formoterol (Symbicort) 160-4.5 MCG/ACT inhaler, USE 2 INHALATIONS IN THE MORNING & 2 INHALATIONS IN THE EVENING RINSE MOUTH DO NOT SWALLOW, Disp: 10.2 each, Rfl: 2 Eliquis 5 MG tablet, Take 1 tablet (5 mg) by mouth 2 times daily., Disp: 180 tablet, Rfl: 1 Eussuvmhpyy-Ctmjgivao-Ivnjjr (Trelegy Ellipta) 200-62.5-25 MCG/ACT aerosol powder , Inhale 1 puff into the lungs every day, Disp: 60 each, Rfl: 6 gabapentin (Neurontin) 100 MG capsule, Take 1 capsule (100 mg) by mouth Nightly., Disp: 60 capsule, Rfl: 0 guaiFENesin ER 1200 MG 12 hour tablet, Take 1200 mg orally every 12 hours, Disp: 60 tablet, Rfl: 6 ibuprofen 600 MG tablet, Take 1 tablet (600 mg) by mouth every 8 hours as needed for mild pain (1-3)., Disp: 90 tablet, Rfl: 0 ipratropium-albuterol (Duo-Neb) 0.5-2.5 mg/3 mL nebulizer solution, INAHLE 1 VIAL VIA NEBULIZER EVERY 6 HOURS NEEDED FOR SHORTNESS OF BREATH OR WHEEZING, Disp: , Rfl: isosorbide mononitrate ER (Imdur) 60 MG 24 hr tablet, Take 1 tablet (60 mg) by mouth daily. Do not crush or chew., Disp: 90 tablet, Rfl: 3 levalbuterol (Xopenex) 0.63 MG/3ML nebulizer solution, Take 3 mL by nebulization every 4 hours as needed., Disp: , Rfl: levothyroxine (Synthroid, Levoxyl) 100 MCG tablet, Take 1 tablet (100 mcg) by mouth daily., Disp: 90 tablet, Rfl: 1 Misc. Devices misc, Handicap tom, Disp: , Rfl: oxygen (O2) gas, Inhale 2 L., Disp: , Rfl: primidone (Mysoline) 50 MG tablet, Take 2 tablets (100 mg) by mouth 2 times daily., Disp: 120 tablet, Rfl: 2 sertraline (Zoloft) 100 MG tablet, Take 2 tablets (200 mg) by mouth daily., Disp: 180 tablet, Rfl: 1 topiramate 50 MG tablet, Take 1 tablet by mouth daily., Disp: 90 tablet, Rfl: 1 No Known Allergies Physical Exam and Review of Systems Vitals: 10/17/24 0844 BP: 92/68 Pulse: 71 Physical Exam Constitutional: General: She is not in acute distress. Appearance: She is not diaphoretic. HENT: Head: Normocephalic. Nose: Nose normal. Mouth/Throat: Mouth: Mucous membranes are moist. Pharynx: No oropharyngeal exudate. Eyes: General: No scleral icterus. Right eye: No discharge. Left eye: No discharge. Neck: Thyroid: No thyromegaly. Vascular: No carotid bruit or JVD. Cardiovascular: Rate and Rhythm: Normal rate and regular rhythm. Pulses: Normal pulses. Heart sounds: Murmur heard. Systolic murmur is present with a grade of 1/6. Pulmonary: Effort: Pulmonary effort is normal. No tachypnea or bradypnea. Breath sounds: Normal breath sounds. No decreased breath sounds, wheezing or rhonchi. Abdominal: General: Bowel sounds are normal. There is no distension. Palpations: There is no hepatomegaly. Tenderness: There is no abdominal tenderness. Musculoskeletal: General: Normal range of motion. Cervical back: Normal range of motion. Right lower leg: No edema. Left lower leg: No edema. Skin: General: Skin is warm and dry. Neurological: Mental Status: She is oriented to person, place, and time. Comments: tremor Psychiatric: Mood and Affect: Mood is anxious and depressed. Affect is tearful. Behavior: Behavior is slowed. Review of Systems Constitutional: Positive for activity change (walks her dog twice/day). Negative for chills, diaphoresis, fatigue, fever and unexpected weight change. HENT: Negative for nosebleeds and trouble swallowing. Eyes: Negative for discharge and visual disturbance. Respiratory: Positive for shortness of breath (when she goes on a "long walk"). Negative for apnea, cough, chest tightness and wheezing. Supplemental 02 qhs Cardiovascular: Negative for chest pain, palpitations and leg swelling. Gastrointestinal: Negative for abdominal distention, abdominal pain, blood in stool, diarrhea, nausea and vomiting. Endocrine: Negative for cold intolerance and heat intolerance. Genitourinary: Negative for hematuria. Musculoskeletal: Positive for back pain and gait problem (presents with quad cane, rare use walker, encouraged walker with her daily walks). Negative for myalgias. Skin: Negative for color change and rash. Neurological: Negative for dizziness, seizures, syncope, facial asymmetry, speech difficulty, weakness, light-headedness, numbness and headaches. Hematological: Does not bruise/bleed easily. Psychiatric/Behavioral: Positive for dysphoric mood. The patient is nervous/anxious. History Past Medical History: Diagnosis Date Abnormal stress test 08/27/2022 Anxiety COPD (chronic obstructive pulmonary disease) ([facility]) COVID-19 05/2020 PNA Depression Hyperlipidemia Hypertension Left leg DVT ([facility]) 2019 Eliquis Lumbar degenerative disc disease 2020 hx of sciatica Lumbar radiculopathy, right 07/2023 moderate multilevel stenosis per MRI- w/u pnd Smoker Tremors of nervous system Past Surgical History: Procedure Laterality Date BILATERAL SALPINGOOPHORECTOMY 04/2023 Dr. Carpenter- benign ovarian cyst BLADDER SUSPENSION times 3 CARDIAC CATHETERIZATION N/A 08/27/2022 Performed by Negin Rodgers MD at [facility] Cardiac Cath/EP Lab CARDIAC CATHETERIZATION N/A 08/27/2022 Performed by Negin Rodgers MD at [facility] Cardiac Cath/EP Lab CARDIAC CATHETERIZATION N/A 08/27/2022 Performed by Negin Rodgers MD at [facility] Cardiac Cath/EP Lab COLONOSCOPY 03/20/2021 Dr. Mariano[facility] COLONOSCOPY 2008 [facility] PARTIAL HYSTERECTOMY 2002 simple hyst Family History Problem Relation Name Age of Onset Colon cancer Father Parkinsonism Mother Cancer Father Breast cancer Sister Social History Tobacco Use Smoking status: Every Day Current packs/day: 0.50 Average packs/day: 0.5 packs/day for 48.4 years (24.2 ttl pk-yrs) Types: Cigarettes Start date: 06/02/1976 Smokeless tobacco: Never Substance Use Topics Alcohol use: Not Currently Comment: rarely OFFICE VISIT Observed: 10/17/2024 8:30 AM Status: COMPLETED Source: [facility] [id number] Lynne 1950 F Date Provider Department Center 10/17/2024 [id number] LEE [facility] None Family History Problem Relation Age of Onset Colon cancer Father Parkinsonism Mother Cancer Father Breast cancer Sister Family Status - Relation Status Age at Father Mother Sister Level of Service:53037 [place] OFFICE/OUTPATIENT ESTABLISHED MOD MDM 30 MIN Reason for Visit and Comments: Follow-up [[id number]] 36 Observed: 10/13/2024 12:28 PM Status: COM PLETED Source: [employer] Rx sent. 36 Observed: 10/13/2024 12:03 PM Status: COMPLETED Source: [facility] Please send in mediation 36 Observed: 10/13/2024 11:19 AM Status: COMPLETED Source: [facility] Message released to patient as written. Yes Patient's further questions if applicable: No Were all questions from office addressed or relayed to the patient from encounter: Yes 36 Observed: 10/13/2024 11:05 AM Status: COMPLETED Source: [employer] [facility] Lm to return call- give resu lt below and ask what pharmacy she needs levothyroxine sent to? Route message back to office 36 Observed: 10/13/2024 11:05 AM Status: COMPLETED Source: [employer] [facility] ----- Message from Alfonso davis MD sent at 10/13/2024 6:26 AM EDT ----- Thyroid level is normal. 36 Observed: 10/12/2024 4:28 PM Status: COMPLETED Source: [employer] [facility] Pt called, stated pcp had re adings of 62/41 and 87/57 in office today, she is not on any BP meds and not on midodrine to raise BP. She has dizziness and lightheadedness. She states this has been going on for a while and would like to be evaluated in office. PROGRESS NOTE Observed: 10/12/2024 3:05 PM Status: COMPLETED Source: [employer] [facility] Partial remission, continue sertraline 100 mg 2 daily. PROGRESS NOTE Observed: 10/12/2024 3:05 PM Status: COMPLETED Source: [employer] [facility] Active, refill Xanax, Rx sen t, OARRS report done, no inconsistencies, CS agreement in place PROGRESS NOTE Observed: 10/12/2024 3:05 PM Status: COMPLETED Source: [facility] Stable, continue levothyroxi ne 100 mcg daily PROGRESS NOTE Observed: 10/12/2024 3:04 PM Status: COMPLETED Source: [employer] Stable, no recent angina PROGRESS NOTE Observed: 10/12/2024 3:04 PM Status: COMPLETED Source: [employer] [facility] Stable, continue oxygen as n eeded, continue Symbicort 160-4.52 puffs twice a day and Trelegy 1 puff daily and albuterol as needed. PROGRESS NOTE Observed: 10/12/2024 3:03 PM Status: COMPLETED Source: [facility] Stable, continue oxygen as n eeded, continue Symbicort 160-4.52 puffs twice a day and Trelegy 1 puff daily and albuterol as needed. OFFICE VISIT Observed: 10/12/2024 2:00 PM Status: COMPLETED Source: [facility] [id number] Lynne 1950 F Date Provider Department Center 10/12/2024 [id number] COLESELROY [facility] Family History Problem Relation Age of Onset Colon cancer Father Parkinsonism Mother Cancer Father Breast cancer Sister Family Status - Relation Status Age at Father Mother Sister Level of Service:82921 [place] OFFICE/OUTPATIENT ESTABLISHED MOD MDM 30 MIN Reason for Visit and Comments: Hypothyroidism [143] Hyperlipidemia [182] Anxiety [9] Depression [32] Emphysema [314] Osteoarthritis [336] Medication Check [[id number]] - 6 month Health Maintenance [872] - Mammogram-agree Shingles vaccine- refuse Pcv 20 vaccine- refuse PROGRESS NOTE Observed: 10/12/2024 2:00 PM Status: COMPLETED Source: [facility] 10/12/2024 Lynne Mar (: 1950) is a 74 y.o. female , Established patient, here for evaluation of the following chief complaint(s): Hypothyroidism, Hyperlipidemia, Anxiety, Depression, Emphysema, Osteoarthritis, Medication Check (6 month), and Health Maintenance (Mammogram-agree/Shingles vaccine- refuse/Pcv 20 vaccine- refuse) ASSESSMENT/PLAN: 1. Chronic respiratory failure with hypoxia (HCC) Assessment & Plan: Stable, continue oxygen as needed, continue Symbicort 160-4.52 puffs twice a day and Trelegy 1 puff daily and albuterol as needed. 2. Other emphysema (HCC) Assessment & Plan: Stable, continue oxygen as needed, continue Symbicort 160-4.52 puffs twice a day and Trelegy 1 puff daily and albuterol as needed. 3. Anxiety Assessment & Plan: Active, refill Xanax, Rx sent, OARRS report done, no inconsistencies, CS agreement in place Orders: - ALPRAZolam (Xanax) 0.5 MG tablet; Take 1 tablet (0.5 mg) by mouth 2 times daily as needed for anxiety., Starting Arlette 10/12/2024, Normal 4. Atherosclerosis of [place] coronary artery of [place] heart with stable angina pectoris (HCC) Assessment & Plan: Stable, no recent angina 5. Acquired hypothyroidism Assessment & Plan: Stable, continue levothyroxine 100 mcg daily Orders: - TSH 6. Recurrent major depressive disorder, in partial remission (HCC) Assessment & Plan: Partial remission, continue sertraline 100 mg 2 daily. 7. Encounter for screening mammogram for malignant neoplasm of breast - Bilateral screening mammogram with tomosynthesis Follow up in about 6 months (around 04/14/2025). SUBJECTIVE/OBJECTIVE: LAURA Landin comes in today for a 6-month follow-up on her multiple health issues which includes COPD/emphysema with chronic respiratory failure. She does have oxygen but she does not wear it when she is out and around. She has a history of coronary artery disease which currently is stable she has no recent angina. Her blood pressure continues to be significantly low and I encouraged her to get back into see her pediatric acute care unit nurse to see if there is something that can be done. She also has a history of depression and anxiety. Review of Systems Constitutional: Negative for chills and fever. HENT: Negative for ear pain, rhinorrhea and sinus pressure. Respiratory: Positive for shortness of breath. Cardiovascular: Negative for chest pain and palpitations. Vitals: 10/12/24 1400 10/12/24 1432 BP: (!) 62/41 87/57 Pulse: 89 88 SpO2: 95% Weight: 167 lb 3.2 oz (75.8 kg) Height: 5' 4" (1.626 m) Physical Exam Vitals and nursing note reviewed. Constitutional: General: She is not in acute distress. Appearance: Normal appearance. HENT: Head: Normocephalic and atraumatic. Mouth/Throat: Mouth: Mucous membranes are moist. Pharynx: Oropharynx is clear. Eyes: Extraocular Movements: Extraocular movements intact. Pupils: Pupils are equal, round, and reactive to light. Neck: Thyroid: No thyromegaly. Vascular: No carotid bruit. Cardiovascular: Rate and Rhythm: Normal rate and regular rhythm. Heart sounds: Normal heart sounds. No murmur heard. Pulmonary: Effort: Pulmonary effort is normal. Breath sounds: Normal breath sounds. Abdominal: General: Abdomen is flat. Bowel sounds are normal. Palpations: Abdomen is soft. Tenderness: There is no abdominal tenderness. Musculoskeletal: Cervical back: Neck supple. Right lower leg: No edema. Left lower leg: No edema. Lymphadenopathy: Cervical: No cervical adenopathy. Neurological: Mental Status: She is alert. An electronic signature was used to authenticate this note. Alfonso Coles MD 10/12/2024 3:05 PM PROGRESS NOTE Observed: 10/12/2024 2:00 PM Status: COMPLETED Source: [facility] [employer] [facility] Patient verified by last nam e and date of . PROGRESS NOTE Observed: 09/19/2024 1:51 PM Status: COMPLETED Source: [facility] Stable, cough medicine sent and patient educated on the need to use her nebulizer and inhalers. PROGRESS NOTE Observed: 09/19/2024 1:51 PM Status: COMPLETED Source: [facility] We discussed her need to use her nebulizer and her inhalers and that she needs to wear her oxygen at all times. OFFICE VISIT Observed: 09/19/2024 1:00 PM Status: COMPLETED [facility] [facility] [id number] Lynne Mar Provider Department Center 09/19/2024 [id number] [facility] Family History Problem Relation Age of Onset Colon cancer Father Parkinsonism Mother Cancer Father Breast cancer Sister Family Status - Relation Status Age at Father Mother Sister Level of Service:[id number] [place] OFFICE/OUTPATIENT ESTABLISHED LOW MDM 20 MIN Reason for Visit and Comments: Hospital Follow-up [832] - [facility] discharge 09/02/24 Pulmonary doctor sent her to ED PROGRESS NOTE Observed: 09/19/2024 1:00 PM Status: COMPLETED Source: [facility] Patient verified by last nam e and date of . PROGRESS NOTE Observed: 09/19/2024 1:00 PM Status: COMPLETED Source: [facility] 09/19/2024 Lynne Mar (: 1950) is a 73 y.o. female , Established patient, here for evaluation of the following chief complaint(s): Hospital Follow-up ([facility] discharge 09/02/24//Pulmonary doctor sent her to ED ) ASSESSMENT/PLAN: 1. Chronic respiratory failure with hypoxia (HCC) Assessment & Plan: We discussed her need to use her nebulizer and her inhalers and that she needs to wear her oxygen at all times. 2. Other emphysema (HCC) Assessment & Plan: Stable, cough medicine sent and patient educated on the need to use her nebulizer and inhalers. Follow up if symptoms worsen or fail to improve. SUBJECTIVE/OBJECTIVE: LAURA Landin comes in today for follow-up on her COPD exacerbation for which she was hospitalized about 3 weeks ago, she says she does not really feel like she is doing a whole lot better she has a couple of coughing spells while she is here her oxygen saturation is good but her blood pressure was initially significantly low. Repeat manually her blood pressure was improved 100/60. She is not wearing her oxygen today she says it is in the car, she says she does have a nebulizer solution but she says it makes her very shaky and she did finish all the antibiotics and I sent her home on. She does continue to smoke and we had a long discussion on smoking cessation, most likely she is not going to quit. Review of Systems Constitutional: Negative for chills and fever. HENT: Negative for ear pain, rhinorrhea and sinus pressure. Respiratory: Negative for shortness of breath. Cardiovascular: Negative for chest pain and palpitations. Vitals: 09/19/24 1302 09/19/24 1319 BP: (!) 64/37 100/60 Patient Position: Sitting BP Cuff Size: Adult Pulse: 99 SpO2: 95% Weight: 165 lb 9.6 oz (75.1 kg) Height: 5' 4" (1.626 m) Physical Exam Vitals and nursing note reviewed. Constitutional: General: She is not in acute distress. Appearance: Normal appearance. HENT: Head: Normocephalic and atraumatic. Mouth/Throat: Mouth: Mucous membranes are moist. Pharynx: Oropharynx is clear. Eyes: Extraocular Movements: Extraocular movements intact. Pupils: Pupils are equal, round, and reactive to light. Cardiovascular: Rate and Rhythm: Normal rate and regular rhythm. Heart sounds: Normal heart sounds. No murmur heard. Pulmonary: Effort: Pulmonary effort is normal. Breath sounds: Normal breath sounds. Musculoskeletal: Cervical back: Neck supple. Lymphadenopathy: Cervical: No cervical adenopathy. Neurological: Mental Status: She is alert. An electronic signature was used to authenticate this note. Alfonso Coles MD 09/19/2024 1:51 PM 36 Observed: 09/18/2024 1:36 PM Status: COMPLETED Source: [employer] [facility] Thank you, however this gaye ot be billed as a HARINDER since it is more than 2 weeks. 36 Observed: 09/18/2024 9:10 AM Status: COMPLETED Source: [employer] [facility] Pt sched - I apologize this is not for half hr See message from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 06/19/2024 9:35 AM Status: COMPLETED Source: [employer] [facility] Call and left detailed voice mail that she needs to stop in office to sign updated CSMA prior to next refill. 36 Observed: 06/19/2024 9:20 AM Status: COMPLETED Source: [employer] [facility] Rx sent. OARRS report review ed with no discrepancies. CSA needs signed for the Xanax. 36 Observed: 06/19/2024 9:19 AM Status: COMPLETED Source: [employer] [facility] CSA Xanax 07/01/23 RFP CSA Gabapentin 03/13/24 36 Observed: 06/19/2024 8:45 AM Status: COMPLETED Source: [employer] [facility] Ordering provider: Dr. Jose D collins Date of last office visit: 04/21/2024 Date of next office visit: 10/25/2024 Updated/Validated preferred pharmacy: Yes Patient instructed to contact the pharmacy prior to picking up the medication: No The patient states she is almost out of both medications (1) Medication name: gabapentin (Neurontin) 100 MG capsule Medication dosage: 100 mg (Miligrams Monthly quantity needed: 60 How many day supply requestin days Medication route: oral (PO) Medication administration time(s): 2 times a day (BID) If taking medication PRN, reason for taking medication: N/A If this is a controlled substance do you receive this or any other controlled medication from any other doctor or facility: No Date of last refill (see medication tab): 05/24/2024 (2) Medication name: ALPRAZolam (Xanax) 0.5 MG tablet Medication dosage: 0.05 mg (Miligrams Monthly quantity needed: 90 How many day supply requestin days Medication route: oral (PO) Medication administration time(s): 3 times a day (TID) If taking medication PRN, reason for taking medication: N/A If this is a controlled substance do you receive this or any other controlled medication from any other doctor or facility: No Date of last refill (see medication tab):05/18/2024 36 Observed: 05/29/2024 8:57 AM Status: COMPLETED Source: [facility] Patient called the [facility] this morning wanting us to fill her topiramate. I canceled refills at [facility] and pended order to [facility]. Thank you! 36 Observed: 05/18/2024 4:21 PM Status: COMPLETED Source: [facility] Reviewed chart. Refill appro priate. RX sent. 36 Observed: 05/18/2024 3:22 PM Status: COMPLETED Source: [facility] Patient called [facility] and woul d like to have her isosorbide filled by us. If appropriate please send prescription to [facility] pharmacy, Rx pended for review, Thank you! 36 Observed: 05/17/2024 11:43 AM Status: COMPLETED Source: [facility] Rx sent. OARRS report review ed with no discrepancies. CSA signed in February 2024. Follow up as scheduled. 36 Observed: 05/17/2024 11:09 AM Status: COMPLETED Source: [facility] Prescription Request: Last medication check: 03/03/2024 Last physical exam: 04/21/2024 Next scheduled appointment: 10/25/2024 CSA on file (date): 03/13/2024 Last urine drug screen: none Last date of refill on this medication: 04/26/2024 36 Observed: 05/01/2024 10:41 AM Status: COM PLETED Source: [facility] Rx sent 36 Observed: 05/01/2024 7:54 AM Status: COMPLETED Source: [facility] Prescription Request: Last medication check: 03/03/2024 Last physical exam: 04/21/2024 Next scheduled appointment: 10/25/2024 Last date of refill on this medication: 03/23/2024 36 Observed: 04/26/2024 12:09 PM Status: COMPLETED Source: [facility] [email or web address] [facility] Rx sent. OARRS report review ed with no discrepancies. CSA signed in February 2024. 36 Observed: 04/26/2024 9:31 AM Status: COMPLETED Source: [facility] CSA Gabapentin 03/13/24 36 Observed: 04/26/2024 9:19 AM Status: COMPLETED Source: [facility] Medication name: gabapentin (Neurontin) 100 MG capsule Medication dosage: 100 mg (Miligrams Monthly quantity needed: 60 How many day supply requestin days Medication route: oral (PO) Medication administration time(s): 2 times a day (BID) If taking medication PRN, reason for taking medication: N/A If this is a controlled substance do you receive this or any other controlled medication from any other doctor or facility: No Ordering provider: sharyn Date of last office visit: 04/21/2024 Date of next office visit: Visit date not found Date of last refill: (see medication tab): 10.4.24 Updated/Validated preferred pharmacy: Yes Patient instructed to contact the pharmacy prior to picking up the medication: Yes 36 Observed: 04/24/2024 2:43 PM Status: COMPLETED Source: [facility] [email or web address] [facility] A prescription for Eliquis h as been filled and waiting for pickle solution maker at [facility] retail. I called patient and she would like this to be delivered to her home. I then saw that it had been discontinued. If the patient is still to be on this medication can we get a new Rx sent to [facility] retail to be delivered via [facility]. Please advise. Thank you! PROGRESS NOTE Observed: 04/21/2024 11:58 AM Status: COMPLETED Source: [facility] Controlled, continue atorvas tatin 40 mg daily PROGRESS NOTE Observed: 04/21/2024 11:57 AM Status: COMPLETED Source: [facility] Remission, continue sertrali ne 200 mg daily PROGRESS NOTE Observed: 04/21/2024 11:57 AM Status: COMPLETED Source: [facility] Discussed smoking cessation, gives no indication she is willing to quit and she would like a screening CT scan, ordered PROGRESS NOTE Observed: 04/21/2024 11:56 AM Status: COMPLETED Source: [facility] Remission, continue Zoloft 2 00 mg daily and Xanax as needed. Rx sent, OARRS report done, no inconsistencies, CS agreement in place. PROGRESS NOTE Observed: 04/21/2024 11:55 AM Status: COMPLETED Source: [facility] Stable, continue home exerci ses PROGRESS NOTE Observed: 04/21/2024 11:54 AM Status: COMPLETED Source: [facility] Stable, no recent angina con tinue atorvastatin 40 mg daily isosorbide mononitrate 60 mg daily PROGRESS NOTE Observed: 04/21/2024 11:53 AM Status: COMPLETED Source: [facility] Stable, continue Symbicort a nd albuterol as needed PROGRESS NOTE Observed: 04/21/2024 11:53 AM Status: COMPLETED Source: [facility] Stable, continue gabapentin 100 mg twice a day PROGRESS NOTE Observed: 04/21/2024 11:53 AM Status: COMPLETED Source: [facility] Stable, continue primidone 5 0 mg 2 twice a day OFFICE VISIT Observed: 04/21/2024 11:30 AM Status: COMPLETED Source: [facility] [id number] Lynne Mar F Date Provider Department Center 04/21/2024 [id number] Family History Problem Relation Age of Onset Colon cancer Father Parkinsonism Mother Cancer Father Breast cancer Sister Family Status - Relation Status Age at Father Mother Sister Level of Service:G0439 [place] PPPS, SUBSEQ VISIT Reason for Visit and Comments: Medicare Annual Wellness Visit Subsequent [677] Blood Work [626611] Health Maintenance [872] - Lung ca screen- agree PROGRESS NOTE Observed: 04/21/2024 11:30 AM Status: COMPLETED Source: [facility] Patient verified by last nam e and date of . PROGRESS NOTE Observed: 04/21/2024 11:30 AM Status: COMPLETED Source: [address] [id number] Visit Type: Medicare Annual Wellness PCP: Alfonso Coles MD Reason for Visit: Medicare Annual Wellness Visit Subsequent, Blood Work, and Health Maintenance (Lung ca screen- agree) Assessment and Plan Problem List Items Addressed This Visit Dyslipidemia Controlled, continue atorvastatin 40 mg daily Relevant Orders Lipid panel Neuropathy Stable, continue gabapentin 100 mg twice a day Osteoarthritis of both knees Stable, continue home exercises Anxiety Remission, continue Zoloft 200 mg daily and Xanax as needed. Rx sent, OARRS report done, no inconsistencies, CS agreement in place. Relevant Medications ALPRAZolam (Xanax) 0.5 MG tablet Atherosclerosis of [place] coronary artery of [place] heart with stable angina pectoris (HCC) Stable, no recent angina continue atorvastatin 40 mg daily isosorbide mononitrate 60 mg daily Cigarette smoker Discussed smoking cessation, gives no indication she is willing to quit and she would like a screening CT scan, ordered Relevant Orders CT lung screening low dose Essential tremor Stable, continue primidone 50 mg 2 twice a day Other emphysema (HCC) Stable, continue Symbicort and albuterol as needed Recurrent major depressive disorder, in partial remission (HCC) Remission, continue sertraline 200 mg daily Other Visit Diagnoses Medicare annual wellness visit, subsequent - Primary Screening for diabetes mellitus Relevant Orders Comprehensive metabolic panel I have reviewed and reconciled the medication list with the patient today. Current Outpatient Medications Medication Sig Dispense Refill acetaminophen (Tylenol) 500 MG tablet Take 500 mg by mouth Nightly. 2 at hs extra strength albuterol 108 (90 Base) MCG/ACT inhaler INHALE TWO PUFFS BY MOUTH EVERY 6 HOURS NEEDED FOR WHEEZING 18 g 5 atorvastatin (Lipitor) 40 MG tablet Take 1 tablet (40 mg) by mouth daily. 90 tablet 1 budesonide-formoterol (Symbicort) 160-4.5 MCG/ACT inhaler Inhale 2 puffs in the morning and 2 puffs in the evening. Rinse mouth with water after use to reduce aftertaste and incidence of candidiasis. Do not swallow.. 1 each 0 gabapentin (Neurontin) 100 MG capsule Take 1 capsule (100 mg) by mouth 2 times daily. 60 capsule 0 ipratropium-albuterol (Duo-Neb) 0.5-2.5 mg/3 mL nebulizer solution INAHLE 1 VIAL VIA NEBULIZER EVERY 6 HOURS NEEDED FOR SHORTNESS OF BREATH OR WHEEZING isosorbide mononitrate ER (Imdur) 60 MG 24 hr tablet Take 1 tablet (60 mg) by mouth daily. Do not crush or chew. 90 tablet 3 levalbuterol (Xopenex) 0.63 MG/3ML nebulizer solution Take 3 mL by nebulization every 4 hours as needed. levothyroxine (Synthroid, Levoxyl) 88 MCG tablet Take 1 tablet (88 mcg) by mouth daily. 90 tablet 1 Misc. Devices misc Handicap placard oxygen (O2) gas Inhale 2 L. primidone (Mysoline) 50 MG tablet Take 2 tablets (100 mg) by mouth 2 times daily. 120 tablet 2 sertraline (Zoloft) 100 MG tablet Take 2 tablets (200 mg) by mouth daily. 180 tablet 1 topiramate 50 MG tablet Take 1 tablet by mouth 2 times daily. 180 tablet 1 ALPRAZolam (Xanax) 0.5 MG tablet Take 1 tablet (0.5 mg) by mouth 3 times daily as needed for anxiety. 90 tablet 0 ibuprofen 600 MG tablet Take 1 tablet (600 mg) by mouth every 8 hours as needed for mild pain (1-3). 90 tablet 0 No current facility-administered medications for this visit. Medications Discontinued During This Encounter Medication Reason Eliquis 5 MG tablet Duplicate order Eliquis 5 MG tablet Duplicate order ALPRAZolam (Xanax) 0.5 MG tablet Reorder The following health maintenance schedule was reviewed with the patient and provided in printed form in the after visit summary: Health Maintenance Topic Date Due Mammogram Never done Lung Cancer Screening 03/14/2022 Pneumococcal Vaccine: 65+ Years (2 of 2 - PCV) 08/31/2024 (Originally 04/24/2022) Zoster Vaccines (1 of 2) 08/31/2024 (Originally 2000) RSV Immunization for Adults (1 - Risk 60-74 years 1-dose series) 03/03/2025 (Originally 2010) Diabetes Screening 08/21/2024 TSH Level 08/30/2024 Depression Monitoring 10/18/2024 Lipid Panel 10/03/2028 Colorectal Cancer Screening 03/20/2031 Medicare Advantage Annual Wellness Visit Completed Influenza Vaccine Completed Bone Density Scan Completed RSV Immunization under 20 Months Aged Out HIB Vaccines Aged Out IPV Vaccines Aged Out Meningococcal Vaccine Aged Out Rotavirus Vaccines Aged Out HPV Vaccines Aged Out DTaP/Tdap/Td Vaccines Discontinued Hepatitis B Vaccines Discontinued Hepatitis A Vaccines Discontinued Hepatitis C Screening Discontinued COVID-19 Vaccine Discontinued Orders Placed This Encounter Procedures CT lung screening low dose Standing Status: Future Standing Expiration Date: 04/20/2025 Order Specific Question: What is the patient's sedation requirement? Answer: No Sedation Order Specific Question: Does the patient show any signs or symptoms of lung cancer? Answer: No Order Specific Question: Is this the first (baseline) CT or an annual exam? Answer: Baseline [1] Order Specific Question: Is there documentation of shared decision making? Answer: Yes Order Specific Question: What is the patient's current smoking status? Answer: Current Smoker [1] Order Specific Question: What is the patient's total pack years? (must be at least 20 pack years) Answer: 23 Order Specific Question: Did the patient receive cessation guidance? Answer: Yes [1] Lipid panel Standing Status: Future Number of Occurrences: 1 Standing Expiration Date: 04/20/2025 Comprehensive metabolic panel Standing Status: Future Number of Occurrences: 1 Standing Expiration Date: 04/20/2025 Follow up in about 6 months (around 10/19/2024). Micah Batista comes in today for her annual Medicare well visit and follow-up on her multiple health issues which includes an essential tremor, neuropathy, COPD and she continues to smoke, she would like a screening CT scan so we will order that. She has a history of coronary artery disease and that seems to be stable she has had no recent angina, she has bilateral arthritis of her knees and she is seeing physical therapy for that. She has a history of anxiety and depression she takes Zoloft and Xanax, and she also has a history of hyperlipidemia and as mentioned above she continues to smoke. List of current healthcare providers: Patient Care Team: Alfonso Coles MD as PCP - General (Family Medicine) Philippe Carpenter MD as Consulting Physician (Gynecologic Oncology) DEEPTI Fatima CNP as Nurse Practitioner (Nurse Practitioner) DEEPTI Hess CNP as Nurse Practitioner (Certified Nurse Practitioner) Over the past 2 weeks, how often have you been bothered by any of the following problems? Trouble falling or staying asleep, or sleeping too much: Not at all Feeling tired or having little energy: Not at all Poor appetite or overeating: Not at all Feeling bad about yourself - or that you are a failure or have let yourself or your family down: Not at all Trouble concentrating on things, such as reading the newspaper or watching television: Several days Moving or speaking so slowly that other people could have noticed? Or the opposite - being so fidgety or restless that you have been moving around a lot more than usual.: More than half the days Thoughts that you would be better off or hurting yourself in some way: Not at all Patient Health Questionnaire-9 Score: 3 Health Risk Assessment: General: General In general, how would you say your health is?: Good In the past 7 days, have you experienced any of the following: New or Increased Pain, New or Increased Fatigue, Loneliness, Social Isolation, Stress or Anger?: No Do you get the social and emotional suppport you need?: Yes Health Habits/Nutrition: Health Habits / Nutrition On average, how many days per week do you engage in moderate to strenous exercise (like a brisk walk)?: 7 days On average, how man minutes do you engage in exercise at this level?: 40 min Have you lost any weight without trying in the past 3 months? : No Have you seen the dentist within the past year?: (!) No Has dentures Hearing/ Vision: Hearing / Vision Do you or your family notice any trouble with your hearing that hasn't been managed with hearing aids?: No Do you have difficulty driving, watching TV, or doing any of your daily activities because of your eyesight?: No Have you had an eye exam within the past year?: Yes No results found. Safety: Safety Do you have a working smoke detector?: Yes Do you have any tripping hazards - loose or unsecured carpets or rugs?: No Do you have any tripping hazards - clutter in doorways, halls, or stairs?: No Do you have either shower bars, grab bars, non-slip mats or non-slip surfaces in your shower or bathtub? : Yes Do all your stairways have a railing or banister? : Yes Do you fasten your seatbelt when you are in a car?: Yes ADL: ADL In the past 7 days, did you need help from others to perform any of the following everyday activities: Eating, dressing, grooming,bathing, toileting, or walking / balance? : No In the past 7 days, did you need help from others to take care of any of the following: laundry, housekeeping, banking / finances,shopping, telephone use, food preparation, transportation, or taking medications? : No Living Will: Living Will Do you have a living will?: Yes Cognitive: Cognitive Screening: Mini-Cog Clock Drawing Test (CDT): (!) 0 Words Recalled: 3 Total Score: 3 Total Score Interpretation: Normal Mini-Cog Fall Risk: Fall Risk One or more falls in the last year:: No Advised to use a cane or walker to get around safely:: Yes Feels unsteady when walking:: Yes Steadies self on furniture while walking at home:: No Worried about falling:: Yes Depression Screening: Over the past 2 weeks, how often have you been bothered by any of the following problems? Little interest or pleasure in doing things: Not at all Feeling down, depressed, or hopeless: Not at all Patient Health Questionnaire-2 Score: 0 Over the past 2 weeks, how often have you been bothered by any of the following problems? Trouble falling or staying asleep, or sleeping too much: Not at all Feeling tired or having little energy: Not at all Poor appetite or overeating: Not at all Feeling bad about yourself - or that you are a failure or have let yourself or your family down: Not at all Trouble concentrating on things, such as reading the newspaper or watching television: Several days Moving or speaking so slowly that other people could have noticed? Or the opposite - being so fidgety or restless that you have been moving around a lot more than usual.: More than half the days Thoughts that you would be better off or hurting yourself in some way: Not at all Patient Health Questionnaire-9 Score: 3 If you checked off any problems on this questionnaire so far, How difficult have these problems made it for you to do your work, take care of things at home, or get along with other people?: Not difficult at all Interventions: Tobacco Use: Social History Tobacco Use Smoking Status Every Day Current packs/day: 0.50 Average packs/day: 0.5 packs/day for 47.9 years (23.9 ttl pk-yrs) Types: Cigarettes Start date: 06/02/1976 Smokeless Tobacco Never Alcohol Use: Audit Alcohol Screening Q2: How many drinks containing alcohol do you have on a typical day when you are drinking?: Patient does not drink Review of Systems Constitutional: Negative for chills and fever. Respiratory: Negative for shortness of breath. Cardiovascular: Negative for chest pain and palpitations. Gastrointestinal: Negative for abdominal pain, blood in stool, constipation and diarrhea. Genitourinary: Negative for dyspareunia, dysuria, frequency, hematuria and urgency. Neurological: Negative for weakness and numbness. Psychiatric/Behavioral: Negative for dysphoric mood. The patient is not nervous/anxious. Immunization History Administered Date(s) Administered Influenza, High Dose Seasonal, Preservative Free 06/02/2018 Influenza, High-dose Seasonal, Quadrivalent, Preservative Free 03/06/2020, 04/24/2021 Influenza, Seasonal, Quadrivalent, Adjuvanted 03/25/2022 Influenza, adjuvanted, trivalent, preservative-free 03/23/2024 Influenza, seasonal, injectable 03/14/2014 Moderna SARS-CoV-2 Vaccination 08/29/2020, 09/26/2020 Pneumococcal Polysaccharide PPSV23 04/24/2021 Unknown Immunization 03/25/2022 No Known Allergies Outpatient Medications Prior to Visit Medication Sig Dispense Refill acetaminophen (Tylenol) 500 MG tablet Take 500 mg by mouth Nightly. 2 at hs extra strength albuterol 108 (90 Base) MCG/ACT inhaler INHALE TWO PUFFS BY MOUTH EVERY 6 HOURS NEEDED FOR WHEEZING 18 g 5 atorvastatin (Lipitor) 40 MG tablet Take 1 tablet (40 mg) by mouth daily. 90 tablet 1 budesonide-formoterol (Symbicort) 160-4.5 MCG/ACT inhaler Inhale 2 puffs in the morning and 2 puffs in the evening. Rinse mouth with water after use to reduce aftertaste and incidence of candidiasis. Do not swallow.. 1 each 0 gabapentin (Neurontin) 100 MG capsule Take 1 capsule (100 mg) by mouth 2 times daily. 60 capsule 0 ipratropium-albuterol (Duo-Neb) 0.5-2.5 mg/3 mL nebulizer solution INAHLE 1 VIAL VIA NEBULIZER EVERY 6 HOURS NEEDED FOR SHORTNESS OF BREATH OR WHEEZING isosorbide mononitrate ER (Imdur) 60 MG 24 hr tablet Take 1 tablet (60 mg) by mouth daily. Do not crush or chew. 90 tablet 3 levalbuterol (Xopenex) 0.63 MG/3ML nebulizer solution Take 3 mL by nebulization every 4 hours as needed. levothyroxine (Synthroid, Levoxyl) 88 MCG tablet Take 1 tablet (88 mcg) by mouth daily. 90 tablet 1 Misc. Devices misc Handicap placard oxygen (O2) gas Inhale 2 L. primidone (Mysoline) 50 MG tablet Take 2 tablets (100 mg) by mouth 2 times daily. 120 tablet 2 sertraline (Zoloft) 100 MG tablet Take 2 tablets (200 mg) by mouth daily. 180 tablet 1 topiramate 50 MG tablet Take 1 tablet by mouth 2 times daily. 180 tablet 1 ALPRAZolam (Xanax) 0.5 MG tablet Take 1 tablet (0.5 mg) by mouth 3 times daily as needed for anxiety. 90 tablet 0 Eliquis 5 MG tablet Take 1 tablet (5 mg) by mouth 2 times daily. 60 tablet 2 Eliquis 5 MG tablet Take 1 tablet (5 mg) by mouth 2 times daily. (Patient not taking: Reported on 04/20/2024) 140 tablet 0 No facility-administered medications prior to visit. Past Medical History: Diagnosis Date Abnormal stress test 08/27/2022 Anxiety COPD (chronic obstructive pulmonary disease) ([facility]) COVID-19 05/2020 PNA Depression Hyperlipidemia Hypertension Left leg DVT ([facility]) 2019 Eliquis Lumbar degenerative disc disease 2020 hx of sciatica Lumbar radiculopathy, right 07/2023 moderate multilevel stenosis per MRI- w/u pnd Smoker Tremors of nervous system Social History Socioeconomic History Marital status: Tobacco Use Smoking status: Every Day Current packs/day: 0.50 Average packs/day: 0.5 packs/day for 47.9 years (23.9 ttl pk-yrs) Types: Cigarettes Start date: 06/02/1976 Smokeless tobacco: Never Vaping Use Vaping status: Never Used Substance and Sexual Activity Alcohol use: Not Currently Comment: rarely Drug use: No Sexual activity: Defer Social Drivers of Health Financial Resource Strain: Low Risk (07/05/2023) Overall Financial Resource Strain (CARDIA) Difficulty of Paying Living Expenses: Not very hard Food Insecurity: No Food Insecurity (04/20/2024) Hunger Vital Sign Worried About Running Out of Food in the Last Year: Never true Ran Out of Food in the Last Year: Never true Transportation Needs: No Transportation Needs (04/20/2024) PRAPARE - Transportation Lack of Transportation (Medical): No Lack of Transportation (Non-Medical): No Physical Activity: Sufficiently Active (04/20/2024) Exercise Vital Sign Days of Exercise per Week: 7 days Minutes of Exercise per Session: 40 min Stress: Stress Concern Present (07/05/2023) [employer] [place] [employer] - Occupational Stress Questionnaire Feeling of Stress : To some extent Social Connections: Moderately Isolated (04/20/2024) Social Connection and Isolation Panel [NHANES] Frequency of Communication with Friends and Family: Never Frequency of Social Gatherings with Friends and Family: More than three times a week Attends Tenriism Services: Never Active Member of Clubs or Organizations: No Attends Club or Organization Meetings: Never Marital Status: Intimate Partner Violence: Not At Risk (04/20/2024) Humiliation, Afraid, Rape, and Kick questionnaire Fear of Current or Ex-Partner: No Emotionally Abused: No Physically Abused: No Sexually Abused: No Housing Stability: Low Risk (04/20/2024) Housing Stability Vital Sign Unable to Pay for Housing in the Last Year: No Number of Times Moved in the Last Year: 1 Homeless in the Last Year: No Past Surgical History: Procedure Laterality Date BILATERAL SALPINGOOPHORECTOMY 04/2023 Dr. Carpenter- benign ovarian cyst BLADDER SUSPENSION times 3 CARDIAC CATHETERIZATION N/A 08/27/2022 Performed by Negin Rodgers MD at [facility] Cardiac Cath/EP Lab CARDIAC CATHETERIZATION N/A 08/27/2022 Performed by Negin Rodgers MD at [facility] Cardiac Cath/EP Lab CARDIAC CATHETERIZATION N/A 08/27/2022 Performed by Negin Rodgers MD at [facility] Cardiac Cath/EP Lab COLONOSCOPY 03/20/2021 Dr. Mariano-[facility] COLONOSCOPY 2009 [facility] PARTIAL HYSTERECTOMY 2002 simple hyst Past Surgical History: Procedure Laterality Date BILATERAL SALPINGOOPHORECTOMY 04/2023 Dr. Carpenter- benign ovarian cyst BLADDER SUSPENSION times 3 CARDIAC CATHETERIZATION N/A 08/27/2022 Performed by Negin Rodgers MD at [facility] Cardiac Cath/EP Lab CARDIAC CATHETERIZATION N/A 08/27/2022 Performed by Negin Rodgers MD at [facility] Cardiac Cath/EP Lab CARDIAC CATHETERIZATION N/A 08/27/2022 Performed by Negin Rodgers MD at [facility] Cardiac Cath/EP Lab COLONOSCOPY 03/20/2021 Dr. Mariano-[facility] COLONOSCOPY 2009 [facility] PARTIAL HYSTERECTOMY 2002 simple hyst Family History Problem Relation Name Age of Onset Colon cancer Father Parkinsonism Mother Cancer Father Breast cancer Sister Objective BP 90/54 Pulse 80 Ht 5' 4" (1.626 m) Wt 165 lb 6.4 oz (75 kg) SpO2 96% BMI 28.39 kg/m? Physical Exam Vitals and nursing note reviewed. Constitutional: General: She is not in acute distress. Appearance: Normal appearance. HENT: Head: Normocephalic. Right Ear: Tympanic membrane, ear canal and external ear normal. Left Ear: Tympanic membrane, ear canal and external ear normal. Mouth/Throat: Mouth: Mucous membranes are moist. Pharynx: Oropharynx is clear. Eyes: Extraocular Movements: Extraocular movements intact. Pupils: Pupils are equal, round, and reactive to light. Neck: Thyroid: No thyromegaly. Vascular: No carotid bruit. Cardiovascular: Rate and Rhythm: Normal rate and regular rhythm. Heart sounds: Normal heart sounds. No murmur heard. Pulmonary: Effort: Pulmonary effort is normal. Breath sounds: Normal breath sounds. Abdominal: General: Bowel sounds are normal. Palpations: Abdomen is soft. Musculoskeletal: General: Normal range of motion. Cervical back: Normal range of motion. Lymphadenopathy: Cervical: No cervical adenopathy. Skin: General: Skin is warm and dry. Neurological: General: No focal deficit present. Mental Status: She is alert and oriented to person, place, and time. Psychiatric: Mood and Affect: Mood normal. Alfonso Coles MD 04/21/2024 11:59 AM 36 Observed: 04/10/2024 9:59 AM Status: COMPLETED Source: [employer] Message released to patient as written. Patient's further questions if applicable: No questions. Were all questions from office addressed or relayed to the patient from encounter: Yes 36 Observed: 04/10/2024 9:50 AM Status: COMPLETED Source: [employer], Left a message to return call. 29 Observed: 04/10/2024 9:47 AM Status: COMPLETED Source: [facility] Addended by: ANALI CRUZ on: 04/10/2024 09:47 AM Modules accepted: Orders 29 Observed: 04/10/2024 9:47 AM Status: COMPLETED Source: [facility] Addended by: DOMITILA RUST on: 04/10/2024 09:47 AM Modules accepted: Orders PROGRESS NOTE Observed: 04/10/2024 9:26 AM Status: COMPLETED Source: [facility] Pended order for samples and sent to provider Please record Lot and expiration date in the notes 36 Observed: 04/10/2024 9:02 AM Status: COMPLETED Source: [facility] Penny gave me a different nu mber for her also, called it and LM. 36 Observed: 04/10/2024 8:59 AM Status: COMPLETED Source: [facility] I'm trying but I don't have a way to contact Domitila besides here, I tried her cell that she left with me [phone] but it appears its disconnected, I called 2x and its a fast busy signal. Do you have another way that you've been able to reach Domitila? 36 Observed: 04/10/2024 8:57 AM Status: COMPLETED Source: [facility] Did not realize that - can y ou help expedite? 36 Observed: 04/10/2024 8:18 AM Status: COMPLETED Source: [facility] We have eliquis 5mg samples here that Domitila had a rep drop off but we need her to log it if we are going to give it out. 36 Observed: 04/10/2024 7:47 AM Status: COMP LETED Source: [facility] No we haven't. 36 Observed: 04/10/2024 7:38 AM Status: COMPLETED Source: [facility] Have we been in contact with Lynne regarding the Eliquis? 36 Observed: 04/07/2024 9:18 AM Status: COMPLETED Source: [facility] Message released to patient as written. Patient's further questions if applicable: Pt understands message. Pt will be needing medication by Wednesday Were all questions from office addressed or relayed to the patient from encounter: Yes 36 Observed: 04/07/2024 8:44 AM Status: COMPLETED Source: [employer] [facility] DEEPTI Gomez CUSTOMER TRAINER [facility] Clinical Support Staff26 minutes ago (8:16 AM) Let patient know we are looking to see if there is assistance available. We do not have samples. 36 Observed: 04/07/2024 8:13 AM Status: COMPLETED Source: [employer] [facility] We do not have samples for t his. Will forward to Domitila Rust to see if there is any assistance available 36 Observed: 04/07/2024 7:37 AM Status: COMPLETED Source: [employer] [facility] Name of caller: Lynne Contact phone number: [phone] Relationship to Patient: patient Provider: Sharyn Practice: [facility] Chief Complaint/Reason for Call: Patient is calling stating she has only 3 tablets remaining of her Eliquis 5mg and she states it will cost her $141 to pick it up which she will not have until 04/14/24. She is asking if the office might have some samples to help her get through until she is able to get her refill from the pharmacy. She says after this refill, the cost goes down significantly to around $10 per refill. Please call to advise/discuss. Best time of day caller can be reached: Any Patient advised that office/PCP has 24-48 business hours to return their call: No 36 Observed: 04/04/2024 6:12 PM Status: COMPLETED Source: [employer] [facility] Message released to [facility] as written. Patient's further questions if applicable: Were all questions from office addressed or relayed to the patient from encounter: Yes 36 Observed: 03/28/2024 9:08 AM Status: COMPLETED Source: [employer] [facility] This med was changed to Symb icort. 36 Observed: 03/27/2024 3:44 PM Status: COMPLETED Source: [employer] [facility] Name of caller: Monica Contact phone number: [phone]/fax [phone] Relationship to Patient: [employer] Provider: Dr Coles Practice: [facility] Chief Complaint/Reason for Call: Called regarding the PA for Trelegy Ellipta aerosol powder stating that the questionnaire needs to be answered to obtain medicine. (Medicine appears to be discontinued). Monica stated that she is faxing questionnaire. Please advise. Best time of day caller can be reached: any Patient advised that office/PCP has 24-48 business hours to return their call: No PROGRESS NOTE Observed: 03/23/2024 3:23 PM Status: COMPLETED Source: [facility] Injection procedure: Location bilateral knees Consent: Verbal Consent Obtained-Discussed risks including hypo/hyperpigmentation, fat atrophy, steroid flare, bleeding and infection and potential consequences of over use of steroids. Prep: Betadine. Anesthesia: 2% lidocaine. Medication: 1 ml depomedrol 40 mg. Needle: 25 gauge 1.5 in. needle. Complications: No Complications, Hemostasis achieved. PROGRESS NOTE Observed: 03/23/2024 1:00 PM Status: COMPLETED Source: [facility] Patient was verified by name and . After obtaining consent, and per orders of Dr. Coles, injection of Fluad given in left deltoid by Annalisa Garrido. Patient instructed to report any adverse reaction immediately. OFFICE VISIT Observed: 03/23/2024 1:00 PM Status: COMPLETED Source: [facility] [id number] Lynne Mar F Date Provider Department Center 03/23/2024 [id number] COLES [facility] Family History Problem Relation Age of Onset Colon cancer Father Parkinsonism Mother Cancer Father Breast cancer Sister Family Status - Relation Status Age at Father Mother Sister Level of Service:69624 [place] OFFICE/OUTPT VISIT,PROCEDURE ONLY Reason for Visit and Comments: Knee Pain [902758] - B/l Discuss Medications [876] - Trelegy is $500 - possibly get a different inhaler Health Maintenance [872] - Flu vaccine- agree PROGRESS NOTE Observed: 03/23/2024 1:00 PM Status: COMPLETED Source: [facility] 03/23/2024 Lynne Mar (: 1950) is a 73 y.o. female , Established patient, here for evaluation of the following chief complaint(s): Knee Pain (B/l ), Discuss Medications (Trelegy is $500 - possibly get a different inhaler ), and Health Maintenance (Flu vaccine- agree ) ASSESSMENT/PLAN: 1. Primary osteoarthritis of both knees Assessment & Plan: Injection procedure: Location bilateral knees Consent: Verbal Consent Obtained-Discussed risks including hypo/hyperpigmentation, fat atrophy, steroid flare, bleeding and infection and potential consequences of over use of steroids. Prep: Betadine. Anesthesia: 2% lidocaine. Medication: 1 ml depomedrol 40 mg. Needle: 25 gauge 1.5 in. needle. Complications: No Complications, Hemostasis achieved. Orders: - Large Joint Injection/Arthrocentesis - methylPREDNISolone acetate (DEPO-Medrol) injection 40 mg; 40 mg, Intra-artICUlar, Once, On Arlette 03/23/24 at 1530, For 1 dose - lidocaine (Xylocaine) 2 % injection 2 mL; 2 mL, Injection, Once, On Arlette 03/23/24 at 1530, For 1 dose - Large Joint Injection/Arthrocentesis - methylPREDNISolone acetate (DEPO-Medrol) injection 40 mg; 40 mg, Intra-artICUlar, Once, On Arlette 03/23/24 at 1530, For 1 dose - lidocaine (Xylocaine) 2 % injection 2 mL; 2 mL, Injection, Once, On Arlette 03/23/24 at 1530, For 1 dose Follow up if symptoms worsen or fail to improve. SUBJECTIVE/OBJECTIVE: LAURA Landin comes in today complaining of pain in multiple locations she would like injections in her knees she says her back is bothering her and her feet are bothering her. Review of Systems Musculoskeletal: Positive for arthralgias, back pain and myalgias. Negative for joint swelling. Neurological: Negative for weakness and numbness. Vitals: 03/23/24 1259 03/23/24 1319 BP: (!) 76/43 94/60 Pulse: 80 86 SpO2: 97% Weight: 164 lb 6.4 oz (74.6 kg) Height: 5' 4" (1.626 m) Physical Exam Vitals and nursing note reviewed. Constitutional: General: She is not in acute distress. Appearance: Normal appearance. Musculoskeletal: Comments: Knees with minimal effusion, mild tenderness along the joint line, she has no crepitus with flexion or extension of the knees. Neurological: Mental Status: She is alert. An electronic signature was used to authenticate this note. Alfonso Coles MD 03/23/2024 3:28 PM PROGRESS NOTE Observed: 03/23/2024 1:00 PM Status: COMPLETED Source: [facility] Patient verified by last nam e and date of . 36 Observed: 03/22/2024 6:28 PM Status: COMPLETED Source: [facility] S: Patient spoke with HAFSA mcgregor regarding medication B: zoloft A: Patient states she is out of her zoloft and needs it refilled R: Advised patient that a refill was sent on 03/10/24 for 180 tablets to [facility] retail pharmacy. Patient verbalizes understanding states she will call them to see if they have it ready. Reason for Disposition ? [1] Prescription prescribed recently is not at pharmacy AND [2] triager has access to patient's EMR AND [3] prescription is recorded in the EMR Protocols used: Medication Question [id number] 36 Observed: 03/22/2024 1:10 PM Status: COMPLETED Source: [facility] lm to pre-visit plan for krishna ointment with Dr Coles on 03/23/24 1pm. Please ask patient to arrive 10 minutes early with Photo ID, insurance card Fasting: no 36 Observed: 03/21/2024 5:20 PM Status: COMPLETED Source: [facility] S: Patient spoke with HAFSA mcgregor regarding request for Rx for Sertraline. B: Onset of symptoms/concern 90 day Rx sent to [facility] pharmacy on 03/07/2024 with one refill. A: N/A R: Patient advised that Rx was sent to [facility] Pharmacy and to contact the [facility] pharmacy that she would like it to go to. Patient advised that pharmacy will have it transferred to [facility]. Patient verbalized understanding. No further needs at this time. Reason for Disposition ? Caller has medicine question only, adult not sick, AND triager answers question Protocols used: Medication Question [id number] 36 Observed: 03/21/2024 3:04 PM Status: COMPLETED Source: [facility] S: Patient spoke with HAFSA mcgregor regarding right knee pain. B: Onset of symptoms started two weeks ago. A: Patient reports right knee pain that she describes as intermittent shooting, sharp and is moderate to severe in intensity. The pain radiates down into the right foot and toes. Reports numbness in the right knee. She is able to ambulate with a cane and this increases the pain. She denies any falls, fever or swelling. She is using ice and OTC pain medications with little relief. R: Insurance was verified. Appointment was scheduled for 03/23/24 at 1:[address] Coles. Patient asked for Dr. Coles only. Instructed to bring insurance card and ID. Denies COVID symptoms or exposure. Advised to continue OTC pain medications as well as trying heat to the knee. Advised she can also alternate heat and ice if she would like. Patient understands care advice. No further needs at this time. Patient instructed to call back with new or worsening symptoms. Reason for Disposition MODERATE pain (e.g., symptoms interfere with work or school, limping) and present > 3 days Protocols used: Knee [id number] 36 Observed: 03/17/2024 11:03 AM Status: COMPLETED Source: [employer] [facility] Called canceled meds at [facility] 36 Observed: 03/17/2024 8:59 AM Status: COMPLETED Source: [employer] [facility] Call after 10am 36 Observed: 03/17/2024 8:55 AM Status: COMPLETED Source: [employer] [facility] Rx sent, OARRS report done, no inconsistencies, CS agreement in place. Please call [facility] pharmacy and make sure these are canceled there. 36 Observed: 03/17/2024 8:33 AM Status: COMPLETED Source: [employer] [facility] All of the requested medicat ions were sent to [facility] on 03/10/24 and 03/13/24 Per pt she is not able to use [facility] she wants them resent to [facility] 36 Observed: 03/16/2024 7:48 PM Status: COMPLETED Source: [employer] [facility] S: pt calling [facility] for medica tion refill B: today A: needs refill of (not completely out of anything but xanax); Xanax 0.5mg Gabapentin 100mg capsule Albuterol - Trelegy - Topiramate -50mg R: RN advised pt that she recently had these prescriptions sent to [facility] Retail pharmacy, pt states she did know this but she got very lost in the [place] area and was too stressed to get her medications yesterday, requesting to have them transferred to [facility] in [place]. RN attempted to call [facility] to have the prescriptions transferred in the morning but the pharmacy was already closed. Will send message to office to see if the original prescriptions can be canceled and resent. Pt voiced understanding of all the above, pharmacy verified in chart. Reason for Disposition [1] Caller has NON-URGENT medicine question about med that PCP prescribed AND [2] triager unable to answer question Protocols used: Medication Refill and Renewal [id number] PROGRESS NOTE Observed: 03/13/2024 9:55 AM Status: COMPLETED Source: [facility] Stable, currently seems to b e much better than in the past, will refill her alprazolam 0.5 mg, Rx sent, OARRS report done, no inconsistencies, CS agreement signed today. PROGRESS NOTE Observed: 03/13/2024 9:54 AM Status: COMPLETED Source: [facility] Stable, she needs a refill o n Trelegy and she just recently had her albuterol refilled. PROGRESS NOTE Observed: 03/13/2024 9:54 AM Status: COMPLETED Source: [facility] Stable, continue gabapentin 100 mg twice a day, Rx sent, OARRS report done, no inconsistencies, CS agreement in place. 36 Observed: 03/13/2024 9:24 AM Status: COMPLETED Source: [facility] Pt was not able to be seen f or AWV but she had some issues she needed to be seen for -= refills, knees, and bladder issues Dr Coles saw pt 36 Observed: 03/13/2024 8:46 AM Status: COMPLETED Source: [facility] Pt sched for AWV at 8:30am Pt arrive at 8:45 for appt - she is not pvp'd and only has 15 minutes left for her appt Per Dr Coles she is not able to be seen today and appt needs to be rescheduled PROGRESS NOTE Observed: 03/13/2024 8:30 AM Status: COMPLETED Source: [facility] 03/13/2024 yLnne Mar (: 1950) is a 73 y.o. female , Established patient, here for evaluation of the following chief complaint(s): Knee Problem (B/l ), Bladder Problem (Not "working"), and Other (Some physicial said her carotid arteries have a lot of noise and they need checked out) ASSESSMENT/PLAN: 1. Chronic obstructive pulmonary disease with acute exacerbation (HCC) Assessment & Plan: Stable, she needs a refill on Trelegy and she just recently had her albuterol refilled. 2. Anxiety Assessment & Plan: Stable, currently seems to be much better than in the past, will refill her alprazolam 0.5 mg, Rx sent, OARRS report done, no inconsistencies, CS agreement signed today. Orders: - ALPRAZolam (Xanax) 0.5 MG tablet; Take 1 tablet (0.5 mg) by mouth 3 times daily as needed for anxiety., Starting Wed03/13/2024, Normal 3. Neuropathy Assessment & Plan: Stable, continue gabapentin 100 mg twice a day, Rx sent, OARRS report done, no inconsistencies, CS agreement in place. Orders: - gabapentin (Neurontin) 100 MG capsule; Take 1 capsule (100 mg) by mouth 2 times daily., Starting Wed03/13/2024, Normal Follow up AWV or knee injections. SUBJECTIVE/OBJECTIVE: HPI -Lynne comes in today, she was scheduled for her AWV however she was 15 minutes late so we said we would see her for other issues and she wants her knees injected and her back injected which we do not have time for since by the time she was put into the room for half an hour was up. She also needed to be seen for her COPD she needed refills on her inhaler Trelegy and she also needed a refill on her anxiety medicine and she needed to sign a new CSA, she also needed a refill on her gabapentin for her neuropathy. These all seem to be fairly stable at this time on her current medications. Review of Systems Constitutional: Negative for chills and fever. HENT: Negative for ear pain, rhinorrhea and sinus pressure. Respiratory: Negative for shortness of breath. Cardiovascular: Negative for chest pain and palpitations. Vitals: 03/13/24 0856 BP: 89/57 Pulse: 82 SpO2: 95% Weight: 163 lb 6.4 oz (74.1 kg) Height: 5' 4" (1.626 m) Physical Exam Vitals and nursing note reviewed. Constitutional: General: She is not in acute distress. Appearance: Normal appearance. HENT: Head: Normocephalic and atraumatic. Right Ear: Tympanic membrane, ear canal and external ear normal. Left Ear: Tympanic membrane, ear canal and external ear normal. Mouth/Throat: Mouth: Mucous membranes are moist. Pharynx: Oropharynx is clear. Eyes: Extraocular Movements: Extraocular movements intact. Pupils: Pupils are equal, round, and reactive to light. Cardiovascular: Rate and Rhythm: Normal rate and regular rhythm. Heart sounds: Normal heart sounds. No murmur heard. Pulmonary: Effort: Pulmonary effort is normal. Breath sounds: Normal breath sounds. Musculoskeletal: Cervical back: Neck supple. Lymphadenopathy: Cervical: No cervical adenopathy. Neurological: Mental Status: She is alert. An electronic signature was used to authenticate this note. Alfonso Coles MD 03/13/2024 9:55 AM PROGRESS NOTE Observed: 03/13/2024 8:30 AM Status: COMPLETED Source: [facility] Patient verified by last nam e and date of . OFFICE VISIT Observed: 03/13/2024 8:30 AM Status: COMPLETED Source: [facility] [id number] Lynne Mar F Date Provider Department Center 03/13/2024 [id number] [facility]ES [facility] Family History Problem Relation Age of Onset Colon cancer Father Parkinsonism Mother Cancer Father Breast cancer Sister Family Status - Relation Status Age at Father Mother Sister Level of Service:[address]75 [place] OFFICE/OUTPATIENT ESTABLISHED LOW MDM 20 MIN Reason for Visit and Comments: Knee Problem [222] - B/l Bladder Problem [404] - Not "working" Other [0] - Some physicial said her carotid arteries have a lot of noise and they need checked out ALLERGIES No Allergies Records Found ENCOUNTERS ADMIT/DISCHARGE ACCOUNT NUMBER ADMITTING ENCOUNTER CLASS LOC ATION SOURCE 03/08/2025/03/08/2025 [id number] [place] [id number] [facility] 01/24/2025/01/24/2025 [id number] [place] [id number] [facility] 01/10/2025/01/10/2025 [id number] [place] [address] [facility] 01/10/2025/01/10/2025 [id number] [place] [address] [facility] 01/05/2025/01/05/2025 [id number] [place] [id number] [facility] 10/25/2024/10/25/2024 [id number] Amb[place] [id number] [facility] 10/17/2024/10/17/2024 [id number] [place] [id number] [facility] 10/12/2024/10/12/2024 [id number] [place] [address] [facility] 09/19/2024/09/19/2024 [id number] [facility] [address] [facility] 08/02/2024/08/02/2024 [id number] [facility] [place] [address] [facility] 07/06/2024/07/06/2024 [id number] [facility] [place] [address] [facility] 07/05/2024/07/05/2024 [id number] [facility] [place] [address] [facility] 04/21/2024/04/21/2024 [id number] [facility] [place] [id number] [facility] 03/23/2024/03/23/2024 [id number] [place] [address] [facility] 03/13/2024/03/13/2024 [id number] [facility] [place] [address] [facility] PAYERS ENCOUNTER [employer]AR[employer] 03/08/2025 Primary Insurance:[facility] MEDICAREPolicy Number: [id number] Date:0556-79-56Jyqy Name:Medicare HMO LYNNE MARSHALL: [id number] [facility] [address] [place] [address] [facility] 01/24/2025 Primary Insurance:[facility] MEDICAREPolicy Number: [id number] Date:3591-13-25Meej Name:Medicare HMO LYNNE MARSHALL: [id number] [place] [facility] [place] [address] [facility] 01/10/2025 Primary Insurance:[facility] MEDICAREPolicy Number: [id number] Date:9094-78-26Tgyy Name:Medicare HMO LYNNE KITCHENB: [id number], [place] [address] [facility] 01/10/2025 Primary Insurance:[facility] MEDICAREPolicy Number: [id number] Date:8854-22-08Gkpp Name:Medicare HMO LYNNE MARDOB: [id number] [place] [address] [facility] 01/05/2025 Primary Insurance:[facility] MEDICAREPolicy Number: [id number] Date:4663-91-22Gtcr Name:Medicare O LYNNE KITCHENB: [id number] [place] [address] [facility] 10/25/2024 Primary Insurance:[facility] MEDICAREPolicy Number: [id number] Date:8731-78-61Hjuz Name:Medicare HMO LYNNE KITCHENB: [id number], [place] [address] [facility] 10/17/2024 Primary Insurance:[facility] MEDICAREPolicy Number: [id number] Date:6113-16-51Nsvb Name:Medicare HMO LYNNE KITCHENB: [id number] [place] [address] [facility] 10/12/2024 Primary Insurance:[facility] MEDICAREPolicy Number: [id number] Date:6896-18-52Psaw Name:Medicare HMO LYNNE KITCHENB: [id number] [place] [facility] [place] [address] [facility] 09/19/2024 Primary Insurance:[facility] MEDICAREPolicy Number: [id number] Date:8113-69-11Bizs Name:Medicare O LYNNE KITCHENB: [id number], [place] [address] [facility] 08/02/2024 Primary Insurance:[facility] MEDICAREPolicy Number: [id number] Date:6267-74-18Enoa Name:Medicare O LYNNE KITCHENB: [id number], [place] [address] [facility] 07/06/2024 Primary Insurance:[facility] MEDICAREPolicy Number: [id number] Date:5278-34-53Roes Name:Medicare O LYNNE KITCHENB: [id number], [place] [address] [facility] 07/05/2024 Primary Insurance:[facility] MEDICAREPolicy Number: [id number] Date:7321-33-57Neqk Name:Medicare O LYNNE KITCHENB: [id number], [place] [address] [facility] 04/21/2024 Primary Insurance:[facility] MEDICAREPolicy Number: [id number] Date:0057-44-18Qodf Name:Medicare O LYNNE KITCHENB: [id number], [place] [address] [facility] 03/23/2024 Primary Insurance:[facility] MEDICAREPolicy Number: [id number] Date:9144-42-51Dukg Name:Medicare O LYNNE KITCHENB: [id number] [place] [address] [facility] 03/13/2024 Primary Insurance:[facility] MEDICAREPolicy Number: [id number] Date:9665-44-54Chgm Name:Medicare O LYNNE KITCHENB: [id number], [place] [address] [facility]
[2025-03-12 09:54] VITALS: BP 119/60; PULSE 79; RESP 20; TEMP 37; O2SAT 99; BMI 27.8
--- NOTE | 2025-03-12 10:12 | ED.VIS.LOWEX ---
HPI History of Present Illness HPI Narrative: 74-year-old female history of DVT on Eliquis, COPD. History of bursitis. Complains of atraumatic right hip pain for about 6 days. Denies any fall injury or trauma. No fever or redness. No prior hip surgery. Worse to walk on. Symptoms very similar to her prior episodes of bursitis. States normally her primary care physician will give her a shot of Kenalog and this will improve. She is hoping we could do that for her today. Chief Complaint: Lower Extremity Injury Informant: patient Occured/Mechanism Mechanism/Context: No injury and No blunt trauma Onset/Context/Timing Onset: Days Context: Gradual Onset Timing: Continuous Quality of Pain: Sharp Current Severity: Moderate Maximum Severity: Moderate Associated Symptoms Associated Symptoms: Negative for Parasthesia, Weakness or Loss of Funtion Narrative Narrative: 74-year-old female history of right hip bursitis complaining of pain for the last 6 days. Denies any trauma. No falls. No injury. No fever, redness or swelling. No prior hip surgery or replacement. Prior similar symptoms: Yes Recent Illness/Hospitalization: No PFSH PFSH Medical History Anxiety Depression Hypothyroidism Smoker On home oxygen therapy Coronary artery disease Hypertension DVT (deep venous thrombosis) Fibroma of right ovary Pulmonary embolism History of Parkinson's disease Acute respiratory failure with hypoxia COPD exacerbation Pneumonia due to COVID-19 virus COPD (chronic obstructive pulmonary disease) Home Medications Medication Instructions Recorded Last Taken Type apixaban 5 mg tablet 5 mg PO BID blood thinner 03/19/19 09/01/24 History atorvastatin 40 mg tablet 40 mg PO DAILY cholestrol 03/19/19 09/01/24 History sertraline 100 mg tablet 200 mg PO DAILY mental health 03/19/19 09/01/24 History ipratropium 0.5 mg-albuterol 3 mg 3 ml inhalation Q6H PRN shortness 02/13/21 Unknown Rx (2.5 mg base)/3 mL nebulization of breath or wheezing #180 mL soln alprazolam 0.5 mg tablet 0.5 mg PO BID anxiety 08/14/21 09/01/24 History ibuprofen 600 mg tablet 600 mg PO Q8H PRN Pain 08/14/21 08/31/24 History budesonide 1 mg/2 mL suspension 1 mg (2 mL) inhalation BID 11/28/21 Unknown Rx for nebulization breathing #60 mL primidone 50 mg tablet 100 mg PO BID tremors 11/28/21 09/01/24 History topiramate 50 mg tablet 50 mg PO DAILY seizures 08/06/22 09/01/24 History gabapentin 100 mg capsule 100 mg PO DAILY nerve pain 07/26/23 08/31/24 History isosorbide mononitrate 60 mg 60 mg PO DAILY heart 07/26/23 09/01/24 History tablet,extended release 24 hr trazodone 50 mg tablet 50 mg PO QHS PRN sleep 07/26/23 Unknown History acetaminophen 500 mg tablet 1,000 mg PO Q6H PRN back pain 09/01/24 09/01/24 History levothyroxine 100 mcg tablet 100 mcg PO DAILY THYROID 09/01/24 09/01/24 History guaifenesin 1,200 mg tablet, 1,200 mg PO Q12H #60 tabs 10/06/24 Unknown Rx extended release 12 hr Bifidobacterium longum 10 million 40,000,000 cell PO QDAY 01/30/25 Unknown History cell capsule (Align (B.longum)) albuterol sulfate 90 mcg/actuation 2 puff inhalation Q4H PRN 01/30/25 Unknown Rx aerosol inhaler shortness of breath or wheezing #8.5 grams fluticasone fur. 200 mcg-umeclid 1 inh inhalation DAILY #60 ea 01/30/25 Unknown Rx 62.5 mcg-vilant 25 mcg inhalat.powder (Trelegy Ellipta) Allergy/AdvReac Type Severity Reaction Status Date / Time No Known Allergies Allergy Verified 03/12/25 09:54 Family History Other No pertinent family history Surgical History History of bladder surgery History of hysterectomy Social History household members: spouse current occupational status: retired current occupation: former overlay [employer] pets and animals: No Smoking Status: Current every day smoker tobacco type: cigarettes Tobacco: How many years used: 50 Electronic Cigarette Use: not used second hand exposure: No alcohol intake: former substance use type: does not use caffeine: Yes Type: coffee Number of servings: 2 what type of physical activity do you participate in: walking frequency: 3-4 times per week seatbelt use: always ROS ROS ED ROS Narrative Denies recent illness. Constitutional Constitutional ED: Denies chills or fever(s) Eyes Eyes: Denies blurry vision ENT ENT ED: Denies ear pain Cardiovascular Cardiovascular: Denies chest pain Respiratory/Chest Respiratory/Chest: Denies cough or dyspnea Gastrointestinal Gastrointestinal: Denies abdominal pain Genitourinary Genitourinary ED: Denies dysuria or hematuria Musculoskeletal Musculoskeletal: Denies arthralgias Integumentary Denies abscess or Abrasions Psychiatric Psychiatric: Denies anxiety or depression Endocrine Endocrinology: Denies polydipsia or polyphagia Hematologic/Lymphatic Hematologic/Lymphatic: Denies easy bleeding, easy bruising or lymphadenopathy Allergic/Immunologic Allergic/Immunologic ED: Denies mouth swelling, tongue swelling or urticaria EXAM Physical Exam Narrative Exam Narrative: 74-year-old female vital signs stable afebrile. Sitting upright in bed. No distress. H EENT exam pupils round reactive light. Moist mucous membranes. Neck nontender no lymphadenopathy. Back nontender. Lungs clear to auscultation bilaterally. Heart regular rhythm rate about 80 no murmur. Chest wall ribs nontender. Abdomen is soft and nontender. No peritoneal signs. Pelvic girdle intact. Patient has full flexion extension of her right hip and knee. Normal dorsi plantarflexion. There is no swelling of the hip. No redness or warmth. Calf is nontender no edema. She has normal strength and sensation with dorsi and plantarflexion. Neurologically she is awake alert. Answering questions and following commands. Const Vital Signs: 03/12/25 09:54 Temperature 98.6 F Temperature Source Oral Pulse Rate 79 Respiratory Rate 20 H Blood Pressure 119/60 Blood Pressure Mean 79 Pulse Ox 99 Oxygen Delivery Method Room Air Positive well nourished and well developed; Negative for cachectic, contractures or unkempt General Appearance ED: well developed and NAD; Negative for unkempt, cachectic or contractures Nutritional Appearance: Negative for cachectic HEENT Reports moist mucous membranes normocephalic and atraumatic Eyes PERRL Neck full ROM and supple Chest Wall inspection of chest normal and palpation of chest normal Resp normal respiratory effort, no retractions and clear to auscultation bilaterally Cardio regular rate, regular rhythm, S1 normal heart sound, S2 normal heart sound and no murmurs GI non-tender, non-distended and no masses Auscultation: normoactive bowel sounds Palpation: soft; Negative for tender, guarding or rebound tenderness present Back/Spine no CVA tenderness General Back: Negative for CVA tenderness Cervical Spine: Negative for cervical spine tenderness Thoracic Spine / Upper Back: Negative for thoracic spinal tenderness Lumbar Spine / Lower Back: Negative for lumbar spinal tenderness Extremity normal to inspection and full ROM Extremity Narrative: Nontender. Normal range of motion. Right hip no swelling. No redness or warmth. Normal flexion extension. No deformity. Neuro oriented x3, CN's II-XII intact bilaterally, moves all extremities and no sensory deficits noted Sensorium / Orientation: alert, oriented to person, oriented to place and oriented to time Motor Exam: strength 5/5 throughout Psych mental status grossly normal Appearance: Negative for unkempt Skin no wounds Lesions: no lesions Rashes: no rashes Trauma: Negative for abrasion, laceration or puncture MDM MDM MDM Narrative Medical decision making narrative: 74-year-old female recurrent right hip pain history of prior bursitis no fall or trauma elderly she needs an x-ray. No history of significant arthritis in her hip. There is no signs of infection. She is requesting Kenalog shot which we will do. She will follow-up with her doctor if not improving. I do not think she needs any other workup at this time. History & Record Review Discussion w/independent historian: Patient Additional record(s) reviewed:: Prior inpatient record, Prior outpatient record, Prior ED visit and Prior labs Discharge Plan Triage Chief Complaint: Lower Extremity Injury ED Provider: Pancho Jenkins Dx/Rx/DC Orders Clinical Impression: Bursitis Instructions: ED Bursitis Prescriptions: No Action ipratropium-albuterol 0.5 mg-3 mg(2.5 mg base)/3 mL solution for nebulization 3 ml inhalation Q6H PRN (Reason: shortness of breath or wheezing) Qty: 180 6RF ibuprofen 600 mg tablet 600 mg PO Q8H PRN (Reason: Pain) alprazolam 0.5 mg tablet 0.5 mg PO BID primidone 50 mg tablet 100 mg PO BID budesonide 1 mg/2 mL suspension for nebulization 1 mg inhalation BID Qty: 60 6RF Patient Comments: PT HAS BEEN USING PRN topiramate 50 mg tablet 50 mg PO DAILY trazodone 50 mg tablet 50 mg PO QHS PRN (Reason: sleep) isosorbide mononitrate 60 mg tablet extended release 24 hr 60 mg PO DAILY gabapentin 100 mg capsule 100 mg PO DAILY guaifenesin 1,200 mg tablet extended release 12hr 1,200 mg PO Q12H Qty: 60 6RF Align (B.longum) 10 million cell capsule 40,000,000 cell PO QDAY Trelegy Ellipta 200-62.5-25 mcg blister with device 1 inh inhalation DAILY Qty: 60 6RF albuterol sulfate 90 mcg/actuation HFA aerosol inhaler 2 puff inhalation Q4H PRN (Reason: shortness of breath or wheezing) Qty: 8.5 11RF Patient Comments: PT STATES SHES BEEN USING 3 PUFFS WHEN SHE USES. atorvastatin 40 MG tablet 40 mg PO DAILY apixaban 5 MG tablet 5 mg PO BID sertraline 100 MG tablet 200 mg PO DAILY acetaminophen 500 mg tablet 1,000 mg PO Q6H PRN (Reason: back pain) levothyroxine 100 mcg tablet 100 mcg PO DAILY Primary Care Provider: Gelacio Horta Referrals: Gelacio Horta MD [Primary Care Provider, Family Practice] - 1 Week if not improving Activity Restrictions/Additional Instructions: Follow-up with your doctor if not improving. If not improving may need an x-ray of your right hip. Ice to your hip. Tylenol for pain. Print Language: Lithuanian Disposition Disposition: Home, Self Care
[2025-03-12 11:02] VITALS: BP 103/57; PULSE 63; RESP 18; TEMP 36.6; O2SAT 95
== END 2025-03-12 11:03 | disposition home or self-care (01) ==
LOC: ED 10:16
PROVIDERS: Emergency Provider Emergency Medicine; PCP Family Medicine; Visit Provider Emergency Medicine
DX: M70.71 Other bursitis of hip, right hip (principal); J44.9 Chronic obstructive pulmonary disease, unspecified; I25.10 Atherosclerotic heart disease of native coronary artery without angina pectoris; Z86.718 Personal history of other venous thrombosis and embolism; F17.210 Nicotine dependence, cigarettes, uncomplicated; Z86.711 Personal history of pulmonary embolism; I10 Essential (primary) hypertension; Z79.01 Long term (current) use of anticoagulants
CPT/HCPCS: 96372; 99282